=== PATIENT | male | born 1970 | race Two or more races ===

== ENCOUNTER 2017-04-19 09:48 | Inpatient (IN) | payer OTHER, MEDICARE ==
[~2017-04-19] VITALS: Ht 170.2 cm; Wt 106.1 kg
[2017-04-19 09:50] VITALS: BP 123/74; PULSE 116; RESP 18; TEMP 98.5; O2SAT 98
[2017-04-19] MEDS ORDERED: DILA2TAB2 PO (10:09)
[2017-04-19] MEDS ORDERED: LOVA40TA PO (10:09)
[2017-04-19] MEDS ORDERED: INSU1INJ5 SQ (10:09)
[2017-04-19] MEDS ORDERED: GLIP10TA6 PO (10:09)
[2017-04-19] MEDS ORDERED: HYDROmorphone HCL PF 1 MG/ML VIAL IVS ONE (10:30)
[2017-04-19] MEDS ORDERED: SODIUM CHLORIDE 0.9% FLUSH 10 ML FLUSH IV FLUSH PRN ×2 (10:30→17:15)
[2017-04-19] MEDS ORDERED: ONDANSETRON HCL 4 MG/2 ML VIAL IVP ONE (10:30)
[2017-04-19 10:50] LABS: AUTOMATED NEUTROPHIL # 9.1 TH/MM3 (1.8-7.7); BASOPHIL # 0.1 TH/MM3 (0-0.2); BASOPHIL % 0.5 % (0.0-2.0); EOSINOPHIL # 0.1 TH/MM3 (0-0.4); HEMATOCRIT 28.6 % (39.0-51.0); HEMO FLAGS DIFF FINAL; LYMPH % 6.5 % (9.0-44.0); LYMPHOCYTE # 0.7 TH/MM3 (1.0-4.8); MEAN CELL VOLUME 99.4 FL (80.0-100.0); MEAN CORPUSCULAR HEMOGLOBIN 32.3 PG (27.0-34.0); MEAN CORPUSCULAR HGB CONC 32.5 % (32.0-36.0); MONO % 8.6 % (0.0-8.0); NEUT % 83.4 % (16.0-70.0); PLATELET COUNT 269 TH/MM3 (150-450); RED BLOOD COUNT 2.88 MIL/MM3 (4.50-5.90); RED CELL DISTRIBUTION WIDTH 21.9 % (11.6-17.2); WHITE BLOOD COUNT 10.9 TH/MM3 (4.0-11.0)
[2017-04-19 11:09] LABS: APTT (PATIENT) 36.7 SEC (24.3-30.1); INTERNATIONAL NORMALIZED RATIO 1.6 RATIO
[2017-04-19 11:16] LABS: ALKALINE PHOSPHATASE 492 U/L (45-117); ALT (GPT) 95 U/L (12-78); ANION GAP 15 MEQ/L (5-15); AST (GOT) 820 U/L (15-37); BICARBONATE 20.8 MEQ/L (21.0-32.0); BLOOD UREA NITROGEN 21 MG/DL (7-18); CHLORIDE 98 MEQ/L (98-107); GLOMERULAR FILTRATION RATE 52 ML/MIN (>89); POTASSIUM 4.2 MEQ/L (3.5-5.1); SODIUM (NA) 134 MEQ/L (136-145); TOTAL BILIRUBIN ADULT 13.5 MG/DL (0.2-1.0)
[2017-04-19] MEDS ORDERED: SODIUM CHLOR 0.9% 1000 ML INJ 1,000 ML IV ONE (11:45)
--- NOTE | 2017-04-19 11:51 | PD ---
HPI Chief Complaint: Pain: Acute or Chronic Time Seen by Provider: 10:05 Travel History International Travel<30 days: No Contact w/Intl Traveler<30days: No Traveled to known affect area: No History of Present Illness HPI Patient is a 47 year old male who comes in complaining of pain. He has metastatic colon cancer, not on chemo, and is having pain to his abdomen and back. He was seen at [facility] where he had a CTA done, which showed no evidence of PE, however, there are lung nodules as well as several masses within the liver. There was also no evidence of SBO. He denies fever or chills. He says everything has been going on for the past month. He denies any difficulty breathing. PFSH Past Medical History Cancer: Yes (COLON, LIVER) High Cholesterol: Yes Chemotherapy: Yes Diabetes: Yes Patient Takes Glucophage: Yes Diminished Hearing: No Tetanus Vaccination: > 5 Years Influenza Vaccination: No Past Surgical History Other Surgery: Yes (POWER PORT R CHEST ) Social History Alcohol Use: No Tobacco Use: No Substance Use: No Allergies-Medications (Allergen,Severity, Reaction): Coded Allergies: No Known Allergies (Unverified , 04/19/17) Reported Meds & Prescriptions Reported Meds & Active Scripts Active Reported Glipizide 10 Mg Tab 10 Mg PO BIDAC Take 30 minutes before a meal Lovastatin 40 Mg Tab 40 Mg PO DAILY Dilaudid (Hydromorphone HCl) 2 Mg Tab 2 Mg PO Q6H PRN Levemir Flextouch Pen Inj (Insulin Detemir) 300 unit/3 ML Pen 1 Units SQ Review of Systems Except as stated in HPI: all other systems reviewed are Neg General / Constitutional: No: Fever, Chills Eyes: No: Blurred Vision HENT: No: Headaches, Lightheadedness Cardiovascular: No: Chest Pain or Discomfort Respiratory: No: Shortness of Breath Gastrointestinal: Positive: Abdominal Pain Genitourinary: No: Dysuria Skin: Positive Change in Pigmentation, No Rash Neurologic: Positive: Weakness, No: Dizziness Physical Exam Narrative GENERAL: Awake and alert, in no acute distress. SKIN: Focused skin assessment warm/dry. Jaundice. HEAD: Atraumatic. Normocephalic. EYES: Pupils equal and round. scleral icterus. No injection or drainage. ENT: No nasal bleeding or discharge. Mucous membranes pink and moist. NECK: Trachea midline. No JVD. CARDIOVASCULAR: Regular rate and rhythm. No murmur appreciated. RESPIRATORY: No accessory muscle use. Clear to auscultation. Breath sounds equal bilaterally. GASTROINTESTINAL: Abdomen soft, non-tender, distended. MUSCULOSKELETAL: No obvious deformities. No clubbing. No cyanosis. NEUROLOGICAL: Awake and alert. No obvious cranial nerve deficits. Motor grossly within normal limits. Normal speech. PSYCHIATRIC: Appropriate mood and affect; insight and judgment normal. Data Data Last Documented VS Vital Signs Date Time Temp Pulse Resp B/P Pulse Ox O2 Delivery O2 Flow Rate FiO2 04/19/17 12:15 105 15 121/74 96 Room Air 04/19/17 09:50 98.5 Orders Complete Blood Count With Diff (04/19/17 10:17) Comprehensive Metabolic Panel (04/19/17 10:17) Lipase (04/19/17 10:17) Lactic Acid (04/19/17 10:17) Prothrombin Time / Inr (Pt) (04/19/17 10:17) Act Partial Throm Time (Ptt) (04/19/17 10:17) Urinalysis - C+S If Indicated (04/19/17 10:17) Ua Includes Microscopic (04/19/17 10:17) Ct Abd/Pel W Iv Contrast(Rout) (04/19/17 10:17) Iv Access Insert/Monitor (04/19/17 10:17) Ecg Monitoring (04/19/17 10:17) Oximetry (04/19/17 10:17) Ondansetron Inj (Zofran Inj) (04/19/17 10:30) Sodium Chloride 0.9% Flush (Ns Flush) (04/19/17 10:30) Hydromorphone Pf Inj (Dilaudid Pf Inj) (04/19/17 10:30) Ammonia (04/19/17 10:17) Sodium Chlor 0.9% 1000 Ml Inj (Ns 1000 M (04/19/17 11:45) Lactic Acid Sepsis Protocol (04/19/17 12:30) Iohexol 350 Inj (Omnipaque 350 Inj) (04/19/17 13:55) Admit Order (Ed Use Only) (04/19/17 ) Labs Laboratory Tests Test 04/19/17 04/19/17 10:26 12:35 White Blood Count 10.9 TH/MM3 Red Blood Count 2.88 MIL/MM3 Hemoglobin 9.3 GM/DL Hematocrit 28.6 % Mean Corpuscular Volume 99.4 FL Mean Corpuscular Hemoglobin 32.3 PG Mean Corpuscular Hemoglobin 32.5 % Concent Red Cell Distribution Width 21.9 % Platelet Count 269 TH/MM3 Mean Platelet Volume 7.3 FL Neutrophils (%) (Auto) 83.4 % Lymphocytes (%) (Auto) 6.5 % Monocytes (%) (Auto) 8.6 % Eosinophils (%) (Auto) 1.0 % Basophils (%) (Auto) 0.5 % Neutrophils # (Auto) 9.1 TH/MM3 Lymphocytes # (Auto) 0.7 TH/MM3 Monocytes # (Auto) 0.9 TH/MM3 Eosinophils # (Auto) 0.1 TH/MM3 Basophils # (Auto) 0.1 TH/MM3 CBC Comment DIFF FINAL Differential Comment Prothrombin Time 18.0 SEC Prothromb Time International 1.6 RATIO Ratio Activated Partial 36.7 SEC Thromboplast Time Sodium Level 134 MEQ/L Potassium Level 4.2 MEQ/L Chloride Level 98 MEQ/L Carbon Dioxide Level 20.8 MEQ/L Anion Gap 15 MEQ/L Blood Urea Nitrogen 21 MG/DL Creatinine 1.46 MG/DL Estimat Glomerular Filtration 52 ML/MIN Rate Random Glucose 131 MG/DL Lactic Acid Level 4.2 mmol/L 3.3 mmol/L Calcium Level 8.1 MG/DL Total Bilirubin 13.5 MG/DL Aspartate Amino Transf 820 U/L (AST/SGOT) Alanine Aminotransferase 95 U/L (ALT/SGPT) Alkaline Phosphatase 492 U/L Ammonia 29 MCMOL/L Total Protein 7.9 GM/DL Albumin 1.4 GM/DL Lipase 116 U/L [facility] Medical Decision Making Medical Screen Exam Complete: Yes Emergency Medical Condition: Yes Medical Record Reviewed: Yes Differential Diagnosis Metastatic cancer versus liver failure versus obstruction Narrative Course Patient is a 47-year-old male comes in complaining of pain. Exam shows jaundice , scleral icterus, ascites of the abdomen. IV established, labs sent. Patient has a lactic acid 4.2. He also signs of liver failure. Patient given IV fluids. Given Dilaudid for pain. CT of the abdomen and pelvis performed shows extensive tumor load as well as spread to the mesentery. Patient will be admitted for management of pain as well as elevated lactic acid. Diagnosis Primary Impression: Liver failure Qualified Code: K72.00 - Subacute liver failure without hepatic coma Additional Impression: Metastatic cancer Admitting Information Admitting Physician Requests: Admit Condition: Stable Cheryl Szymanski MD Apr 19, 2017 11:51
[2017-04-19 12:15] VITALS: BP 121/74; PULSE 105; RESP 15; O2SAT 96
--- NOTE | 2017-04-19 13:45 | RADRPT ---
EXAM DATE/TIME: 04/19/2017 12:54 [facility] COMPARISON: No previous studies available for comparison. INDICATIONS : Abdomen pain. IV CONTRAST: 100 cc Omnipaque 350 (iohexol) IV ORAL CONTRAST: No oral contrast ingested. RADIATION DOSE: 9.96 CTDIvol (mGy) MEDICAL HISTORY : Carcinoma, colon. Carcinoma; liver. SURGICAL HISTORY : None. ENCOUNTER: Initial ACUITY: 2 weeks PAIN SCALE: 5/10 LOCATION: Bilateral abdomen. TECHNIQUE: Volumetric scanning of the abdomen and pelvis was performed. Using automated exposure control and adjustment of the mA and/or kV according to patient size, radiation dose was kept as low as reasonably achievable to obtain optimal diagnostic quality images. DICOM format image data is av ailable electronically for review and comparison. FINDINGS: CT Abdomen: The liver is riddled with metastatic disease involving all segments the largest one measu res 17.6 cm in size. The spleen, pancreas, adrenals are unremarkable. There is no evidence for any hans wel obstruction. There are simple cysts in the kidneys the largest on the right measures 1.8 cm in s ize. Multiple nodules are present in both lung bases the largest measures 1 cm on the left characteri stic of metastatic disease. CT pelvis: There is a large mass in the cecum almost certainly malignant measures 5 cm in size with i nfiltration of the surrounding fat planes probably extension through the bowel wall involving the dennis rounding fat and possibly small lymph nodes at this site the largest measures 1.4 cm in size. There i s slight ascites possibility of peritoneal carcinomatosis is not completely excluded at this time.. CONCLUSION: 1. Malignant appearing cecal mass with metastatic disease to the liver and lungs. 2. The mass has eroded through the bowel wall with involvement of the surrounding mesentery and possi cory small metastatic lymph nodes locally at the site with slight ascites and early peritoneal carcino matosis is not excluded Elton Nunn MD on April 19, 2017 at 13:37 Board Certified Radiologist. This report was verified electronically.
[2017-04-19] MEDS ORDERED: IOHEXOL 350 MG/ML 10 ML VIAL (for RAD DIAG) IV ONE (13:55)
[2017-04-19 14:40] LABS: LACTIC ACID GHOST NOT REPORTABLE
[2017-04-19 15:59] VITALS: BP 117/68; PULSE 106; RESP 16; TEMP 98.5; O2SAT 97
--- NOTE | 2017-04-19 17:01 | HHI.HP ---
[facility] Service [facility] Primary Care Physician Moshe Smith, III Admission Diagnosis liver failure, metastatic cancer Diagnoses: Chief Complaint: back pain/abdominal pain Travel History International Travel<30 Days: No Contact w/Intl Traveler <30 Da: No Traveled to Known Affected Are: No History of Present Illness This is a 47-year-old male with significant past medical history of metastatic colon cancer diagnosed in 2015 at [facility] for which the patient underwent chemotherapy which he states he was forced to stop due to problems with insurance. The patient states that initially he had a good response to the chemotherapy however the cancer came back and then the patient had stopped treatment due to insurance issues. The patient complains of increased weakness , yellow skin, shortness of breath especially with exertion, lack of appetite, increased abdominal pain and back pain as well as nausea. Denies fevers or chills, denies chest pain, denies diarrhea or dysuria. The patient has being previously followed by Dr. Jo from oncology. Review of Systems As per history of present illness, other systems reviewed by me and negative Past Family Social History Past Medical History Metastatic colon cancer Diabetes mellitus Past Surgical History Right-sided chest port placement. Reported Medications Glipizide 10 Mg Tab 10 Mg PO BIDAC Take 30 minutes before a meal Lovastatin 40 Mg Tab 40 Mg PO DAILY Dilaudid (Hydromorphone HCl) 2 Mg Tab 2 Mg PO Q6H PRN Levemir Flextouch Pen Inj (Insulin Detemir) 300 unit/3 ML Pen 1 Units SQ Allergies: Coded Allergies: No Known Allergies (Unverified , 04/19/17) Active Ordered Medications Current Medications Medications (Trade) Dose Ordered Sig/Gary Route Start Time Stop Time Status Last Admin (NS Flush) 2 ml UNSCH PRN IV FLUSH 04/19/17 17:15 (NS Flush) 2 ml BID IV FLUSH 04/19/17 21:00 (Tylenol) 650 mg Q4H PRN PO 04/19/17 17:15 (Zofran Inj) 4 mg Q6H PRN IVP 04/19/17 17:15 04/19/17 18:05 (Lovenox Inj) 40 mg Q24H SQ 04/19/17 18:00 04/19/17 18:05 (Aniya-Colace) 1 tab BID PO 04/19/17 21:00 (Milk Of Magnreba Liq) 30 ml Q12H PRN PO 04/19/17 17:15 (Senokot) 17.2 mg Q12H PRN PO 04/19/17 17:15 (Dulcolax Supp) 10 mg DAILY PRN RECTAL 04/19/17 17:15 Lactulose 30 ml 30 ml DAILY PRN PO 04/19/17 17:15 (NS 1000 ml Inj) 1,000 ml @ 84 mls/hr [id number] IV 04/19/17 17:15 04/19/17 17:27 (Morphine Inj) 2 mg Q3H PRN IV PUSH 04/19/17 18:00 (Morphine Inj) 4 mg Q3H PRN IV PUSH 04/19/17 18:00 04/19/17 18:05 Family History Patient states that her grandmother had stomach cancer. Social History She denies smoking, denies drinking alcohol or using illicit drugs. Physical Exam Vital Signs Vital Signs Date Time Temp Pulse Resp B/P Pulse Ox O2 Delivery O2 Flow Rate FiO2 04/19/17 15:59 98.5 106 16 117/68 97 Room Air 04/19/17 12:15 105 15 121/74 96 Room Air 04/19/17 11:21 20 04/19/17 09:50 98.5 116 18 123/74 98 Physical Exam GENERAL: This is a mal-nourished, well-developed patient, in no apparent distress. SKIN: No rashes, ecchymoses or lesions. Cool and dry. (+) Jaundice HEAD: Atraumatic. Normocephalic. No temporal or scalp tenderness. EYES: Pupils equal round and reactive. Extraocular motions intact. No injection or drainage. (+) icteric sclerae ENT: Nose without bleeding, purulent drainage or septal hematoma. Throat without erythema, tonsillar hypertrophy or exudate. Uvula midline. Airway patent. NECK: Trachea midline. No JVD or lymphadenopathy. Supple, nontender, no meningeal signs. CARDIOVASCULAR: Regular rate and rhythm without murmurs, gallops, or rubs. RESPIRATORY: Clear to auscultation. Breath sounds equal bilaterally. No wheezes , rales, or rhonchi. GASTROINTESTINAL: Abdomen soft, effusion tender to palpation, tended. No hepato- splenomegaly, or palpable masses. No guarding. (+) ascites MUSCULOSKELETAL: Extremities without clubbing, cyanosis, there is edema in the right lower extremity. No joint tenderness, effusion, or edema noted. No calf tenderness. Negative Homans sign bilaterally. NEUROLOGICAL: Awake and alert. Cranial nerves II through XII intact. Motor and sensory grossly within normal limits. Five out of 5 muscle strength in all muscle groups. Normal speech. Laboratory Laboratory Tests Test 04/19/17 04/19/17 10:26 12:35 White Blood Count 10.9 Red Blood Count 2.88 Hemoglobin 9.3 Hematocrit 28.6 Mean Corpuscular Volume 99.4 Mean Corpuscular Hemoglobin 32.3 Mean Corpuscular Hemoglobin 32.5 Concent Red Cell Distribution Width 21.9 Platelet Count 269 Mean Platelet Volume 7.3 Neutrophils (%) (Auto) 83.4 Lymphocytes (%) (Auto) 6.5 Monocytes (%) (Auto) 8.6 Eosinophils (%) (Auto) 1.0 Basophils (%) (Auto) 0.5 Neutrophils # (Auto) 9.1 Lymphocytes # (Auto) 0.7 Monocytes # (Auto) 0.9 Eosinophils # (Auto) 0.1 Basophils # (Auto) 0.1 CBC Comment DIFF FINAL Differential Comment Prothrombin Time 18.0 Prothromb Time International 1.6 Ratio Activated Partial 36.7 Thromboplast Time Sodium Level 134 Potassium Level 4.2 Chloride Level 98 Carbon Dioxide Level 20.8 Anion Gap 15 Blood Urea Nitrogen 21 Creatinine 1.46 Estimat Glomerular Filtration 52 Rate Random Glucose 131 Lactic Acid Level 4.2 3.3 Calcium Level 8.1 Total Bilirubin 13.5 Aspartate Amino Transf 820 (AST/SGOT) Alanine Aminotransferase 95 (ALT/SGPT) Alkaline Phosphatase 492 Ammonia 29 Total Protein 7.9 Albumin 1.4 Lipase 116 Result Diagram: 04/19/17 1026 04/19/17 1026 Imaging Last Impressions Lower Extremity Ultrasound 04/19/17 1703 Signed Impressions: Service Date/Time: Wednesday, April 19, 2017 18:50 - CONCLUSION: No DVT right leg. Sea Solano MD Abdomen/Pelvis CT 04/19/17 1017 Signed Impressions: Service Date/Time: Wednesday, April 19, 2017 12:54 - CONCLUSION: 1. Malignant appearing cecal mass with metastatic disease to the liver and lungs. 2. The mass has eroded through the bowel wall with involvement of the surrounding mesentery and possibly small metastatic lymph nodes locally at the site with slight ascites and early peritoneal carcinomatosis is not excluded Elton Nunn MD Assessment and Plan Problem List: (1) Metastatic colon cancer to liver ICD Code: C18.9 Status: Acute Plan: With the patient on outpatient observation Provide pain control with IV morphine Consult medical oncology - Dr Horn (2) Transaminitis ICD Code: R74.0 Status: Acute Plan: Transaminitis with elevated alkaline phosphatase and coagulopathy likely secondary to liver failure due to metastatic liver disease. Continue to monitor liver function tests. Check ammonia level (3) Elevated alkaline phosphatase level ICD Code: R74.8 Status: Acute Plan: As above (4) NICOLÁS (acute kidney injury) ICD Code: N17.9 Status: Acute Plan: Suspect secondary to prerenal azotemia map patient also with decreased oral intake. Possibly decreased effective intravascular volume. Will give IV Albumin and gentle IV fluids Continue to monitor BUN/creatinine and creatinine, strict I's and O's, avoid nephrotoxins. (5) Hyponatremia ICD Code: E87.1 Status: Acute Plan: monitor BMP. Will give normal saline. (6) Diabetes ICD Code: E11.9 Status: Chronic Plan: Blood sugar seems to be stable. Hold glipizide. Continue SSI with insulin NovoLog. (7) Anemia ICD Code: D64.9 Status: Acute Plan: Normal MCV anemia. Likely secondary to iron deficiency anemia due to colon cancer. Check iron studies, ferritin and monitor hemoglobin. (8) Severe protein-calorie malnutrition ICD Code: E43 Status: Acute Plan: We'll consult dietitian, I will also start the patient on Megace. (9) Coagulopathy ICD Code: D68.9 Status: Acute Plan: Likely secondary to liver failure secondary to liver metastasis. Continue to monitor PT, PTT, will give vitamin K. (10) Edema of right lower extremity ICD Code: R60.0 Status: Acute Plan: Penis Doppler ruled out DVT. (11) Elevated lactic acid level ICD Code: R79.89 Status: Acute Plan: Likely elevated secondary to dehydration and cancer. Continue gentle IV fluids. (12) Abdominal pain ICD Code: R10.9 Status: Acute Plan: Likely secondary to metastatic colon cancer. However cannot rule out SBP given that there is increased lactic acid and pain. Will start the patient IV Rocephin. Will provide pain control with IV morphine. Assessment and Plan GI prophylaxis: Place on PPI. DVT reflexes: SCDs, Lovenox subcutaneously. Discussed Condition With Patient, ED physician. Problem Qualifiers (1) Diabetes: Qualified Code: E11.9 - Type 2 diabetes mellitus without complication, with long-term current use of insulin (2) Anemia: Qualified Code: D64.9 - Anemia, unspecified type (3) Abdominal pain: Qualified Code: R10.84 - Generalized abdominal pain Audi Negrete MD Apr 19, 2017 17:01
[2017-04-19] MEDS ORDERED: ACETAMINOPHEN 325 MG TAB PO PRN (17:15)
[2017-04-19] MEDS ORDERED: LACTULOSE SYRUP 20 GM/30 ML CUP PO PRN (17:15)
[2017-04-19] MEDS ORDERED: ONDANSETRON HCL 4 MG/2 ML VIAL IVP PRN (17:15)
[2017-04-19] MEDS ORDERED: MAGNESIUM HYDROXIDE SUSP 30 ML CUP PO PRN (17:15)
[2017-04-19] MEDS ORDERED: SENNOSIDES 8.6 MG TAB PO PRN (17:15)
[2017-04-19] MEDS ORDERED: BISACODYL 10 MG SUPP RECTAL PRN (17:15)
[2017-04-19] MEDS ORDERED: SODIUM CHLOR 0.9% 1000 ML INJ 1,000 ML IV SCH ×2 (17:15→20:00)
[2017-04-19 17:44] VITALS: BP 130/71; PULSE 110; RESP 16; O2SAT 97
[2017-04-19] MEDS ORDERED: MORPHINE SULFATE 4 MG/ML INJ IV PUSH PRN (18:00)
[2017-04-19] MEDS: ENOXAPARIN SODIUM 40 MG/0.4 ML SYRINGE SQ SCH (18:05)
[2017-04-19] MEDS: MORPHINE SULFATE 4 MG/ML INJ IV PUSH PRN ×2 (18:05→23:18)
[2017-04-19 18:37] VITALS: BP 121/71; PULSE 110; RESP 20; TEMP 96.1; O2SAT 97
--- NOTE | 2017-04-19 19:10 | RADRPT ---
EXAM DATE/TIME: 04/19/2017 18:50 [facility] COMPARISON: No previous studies available for comparison. INDICATIONS : Right leg swelling. MEDICAL HISTORY : Hypercholesterolemia. Colon cancer with mets to lungs and liver. Chemotherapy. Diabetes. SURGICAL HISTORY : Right chest port. ENCOUNTER: Initial ACUITY: 1 day PAIN SCORE: 6/10 LOCATION: Right leg. TECHNIQUE: Venous ultrasound of the leg was performed from the inguinal ligament to the proximal calf. Real-giovani e, color Doppler and spectral tracing, compression and augmentation techniques were used. FINDINGS: There is normal compressibility of the deep venous system from the inguinal region to the proximal ca lf. No echogenic clot is seen in the lumen of the common femoral, femoral, popliteal, and posterior tibial veins. There is a normal response of the venous system to proximal and distal augmentation an d respiration. CONCLUSION: No DVT right leg. Sea Solano MD on April 19, 2017 at 19:08 Board Certified Radiologist. This report was verified electronically.
[2017-04-19 20:00] VITALS: BP 99/69; PULSE 112; RESP 17; TEMP 96.3; O2SAT 97
[2017-04-19] MEDS: SODIUM CHLORIDE 0.9% FLUSH 10 ML FLUSH IV FLUSH SCH (20:29)
[2017-04-19] MEDS ORDERED: PHYTONADIONE INJ 10 MG in SODIUM CHLORIDE 0.9% INJ 50 ML IV ONE (21:00)
[2017-04-19] MEDS: DOCUSATE SODIUM 50 MG/SENNA 8.6 MG TAB PO SCH (21:08)
[2017-04-19] MEDS: cefTRIAXone INJ 2,000 MG in SODIUM CHLORIDE 0.9% INJ 100 ML IV SCH (21:58)
[2017-04-19] MEDS: ALBUMIN HUMAN 25% 25 GM/100 ML BAGP IV SCH (22:01)
[2017-04-19 23:51] LABS: BACTERIA, URINE RARE /hpf; BLOOD, URINE SMALL (NEG); COMMENT (UR) CULT NOT INDICATED; CULTURE IF INDICATED CULT NOT INDICATED; GLUCOSE,URINE TRACE mg/dL (NEG); GRANULAR CAST, URINE 8 /lpf; HYALINE CAST, URINE 1 /lpf (RARE); KETONE, URINE NEG (NEG); MUCUS URINE FEW /lpf (OCC); NITRITE,URINE NEG (NEG); PH, URINE 5.5 (5.0-8.5); SQUAMOUS EPITHELIAL CELL URINE <1 /hpf (0-5); URINE COLOR DARK-YELLOW (YELLW/STRAW)
[2017-04-20] VITALS: BP 116/73; PULSE 118; RESP 19; TEMP 97.7; O2SAT 97
[2017-04-20 04:00] VITALS: BP 126/71; PULSE 114; RESP 16; TEMP 96.3; O2SAT 96
[2017-04-20] MEDS: MORPHINE SULFATE 4 MG/ML INJ IV PUSH PRN (04:18)
[2017-04-20 04:28] LABS: AUTOMATED NEUTROPHIL # 7.7 TH/MM3 (1.8-7.7); BASOPHIL # 0.1 TH/MM3 (0-0.2); BASOPHIL % 0.9 % (0.0-2.0); EOSINOPHIL # 0.1 TH/MM3 (0-0.4); HEMATOCRIT 26.3 % (39.0-51.0); LYMPH % 9.7 % (9.0-44.0); LYMPHOCYTE # 0.9 TH/MM3 (1.0-4.8); MEAN CELL VOLUME 98.1 FL (80.0-100.0); MEAN CORPUSCULAR HGB CONC 32.6 % (32.0-36.0); NEUT % 79.4 % (16.0-70.0); PLATELET COUNT 276 TH/MM3 (150-450); RED BLOOD COUNT 2.68 MIL/MM3 (4.50-5.90); RED CELL DISTRIBUTION WIDTH 21.3 % (11.6-17.2); WHITE BLOOD COUNT 9.7 TH/MM3 (4.0-11.0)
[2017-04-20 04:35] LABS: HEMO FLAGS AUTO DIFF
[2017-04-20 05:07] LABS: ALKALINE PHOSPHATASE 454 U/L (45-117); ALT (GPT) 79 U/L (12-78); ANION GAP 11 MEQ/L (5-15); AST (GOT) 633 U/L (15-37); BICARBONATE 20.8 MEQ/L (21.0-32.0); BLOOD UREA NITROGEN 32 MG/DL (7-18); CHLORIDE 99 MEQ/L (98-107); FERRITIN 933 NG/ML (26-388); GLOMERULAR FILTRATION RATE 40 ML/MIN (>89); POTASSIUM 4.4 MEQ/L (3.5-5.1); SODIUM (NA) 131 MEQ/L (136-145); TOTAL BILIRUBIN ADULT 13.1 MG/DL (0.2-1.0); TRANSFERRIN IRON PROFILE 116 MG/DL (200-360)
[2017-04-20 05:14] LABS: CALCIUM-PROTEIN CORRECTED 7.4 MG/DL (8.5-10.1)
[2017-04-20 06:20] LABS: LACTIC ACID GHOST NOT REPORTABLE
[2017-04-20 07:53] LABS: BANDS 16 % (0-6); BASOPHILS 1 % (0-2); EOSINOPHILS 1 % (0-4); NEUTROPHIL # MANUAL DIFF 9.1 TH/MM3 (1.8-7.7); POLYS (SEG NEUTROPHILS) 78 % (16-70); WBC DIFF SAMPLE 100
[2017-04-20 07:54] LABS: PLATELET ESTIMATE SMEAR NORMAL (NORMAL); PLATELET MORPHOLOGY NORMAL (NORMAL); SCAN/DIFF FINAL DIFF MANUAL
--- NOTE | 2017-04-20 07:54 | MB ---
cc: HARINI STRATTON M.D. DATE OF CONSULTATION 04/19/2017 REASON FOR CONSULTATION Consult requested by hospitalist for evaluation of metastatic colon cancer. HISTORY OF PRESENT ILLNESS This is a 47-year-old male. He was diagnosed with colon cancer with extensive liver metastasis in July of 2015 when he presented with abdominal pain at [facility] at [facility]. The CAT scan showed multiple liver metastases, thickening of the ascending colon. He had a colonoscopy which showed near obstructive mass in the descending colon. He was treated with Xelox from August 2015 through January of 2016. The Xelox was stopped due to peripheral neuropathy. At that time he had a CAT scan which showed no evidence of disease and his CEA was normal. He was kept on observation. The patient subsequently moved from [place] to [place] in April of last year. He was referred to me in July of last year. I repeated the CAT scan of the abdomen and pelvis which showed recurrent liver metastasis and his CEA has gone up to 120. I started him on Avastin and FOLFOX chemotherapy. The patient was having a good response. His CEA was steadily becoming down and his cancer was responding to the chemotherapy. I last saw him in November. After that the patient has cancelled several appointments. My nurse had contacted him but he declined to make further appointments. The patient states that he stopped the chemotherapy due to financial reasons. He was told that he needed to pay so much money and he did not have that. Our financial resources person, Florence Haji, has obtaining a jeison for him so that he can continue with the chemotherapy. However, the patient has a language barrier. He has some misunderstanding and he decided not to have any further chemotherapy. He was doing yariel treatment. 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 The patient was doing fine up until a month ago when he started having abdominal pain which gradually progressed and was having back pain as well. His appetite was poor. He was losing weight. He subsequently developed shortness of breath and he went to [facility] a week ago. He had a CAT scan which showed no pulmonary embolism but he was told that he has tumor in his lungs and the liver. He was given some pain medication and was discharged to home to be followed with an oncologist. The patient made an appointment with me see on April 27, a week from next Thursday. REVIEW OF SYSTEMS The patient now came to the emergency room at [place] complaining of severe abdominal pain and severe jaundice. He is complaining of anorexia, weight loss, weakness, fatigue. He is complaining of abdominal pain and back pain. He ran out of the pain medication which was given to him from [facility] a week ago. The rest of the review of systems is negative. PAST MEDICAL HISTORY 1. Morbid obesity. 2. Depression. 3. Diabetes mellitus. 4. Colon cancer with liver metastasis. PAST SURGICAL HISTORY 1. Rismve-L-Luvk placement. 2. Colonoscopy and colon biopsy. ALLERGIES None. MEDICATIONS Please see EMR. FAMILY HISTORY Noncontributory. SOCIAL HISTORY The patient does not smoke cigarettes, does not drink alcohol. 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 PHYSICAL EXAMINATION GENERAL: He is a well-developed, morbidly obese male. VITAL SIGNS: Temperature 96.1, heart rate is 110, blood pressure 121/71, O2 saturation 97%. HEENT: PERRLA. Sclerae is deeply icteric. NECK: No lymphadenopathy. LUNGS: Clear. No wheezing, rhonchi or rales. HEART: Tachycardic with no murmur. ABDOMEN: Distended, unable to feel for liver and spleen. EXTREMITIES: No pedal edema. NEUROLOGY: Awake, alert, oriented x 3. SKIN: No significant lesions noted. ASSESSMENT 1. History of colon cancer with liver metastasis diagnosed two years ago in 2014. The patient initially was treated with Xelox, then Avastin and FOLFOX chemotherapy with an excellent response. However, he has elected to stop further chemotherapy in November due to financial reasons. 2. The patient now has extensive liver metastasis and the cancer has now progressed into both lungs. 3. Severe jaundice due to extensive liver metastasis. PLAN I have reviewed his available records and I had an extensive discussion with the patient's and multiple family members including her friend who was able to act as an american sign language interpreter. We discussed that his blood test shows a bilirubin of 13.5, AST is 820, ALT is 95, alkaline phosphatase 492. Albumin is 1.4. He has severely elevated liver enzymes due to extensive liver metastasis. The patient does not have any dilated bile duct so the patient does not have any obstruction of the bile ducts. This is all hepatocellular disease from extensive colon metastasis. I have strongly recommended Hospice for best supportive care. I do not think the patient would be able to tolerate further chemotherapy due to the extensive metastasis as well as liver failure. I recommended Hospice for best supportive care. However, the patient and his family adamantly declined. The patient wanted to try chemotherapy desperately. He stated that two years ago when he was diagnosed with colon cancer Stage IV he was told that he had 3-6 months to live. With the initial chemotherapy the tumor had resolved and he went into remission. But then his cancer did come back and he was responding to the chemotherapy, Avastin and FOLFOX, quite well. Then, he had some financial issues and was unable to continue with the chemotherapy. He had cancelled his appointments and last saw him was in November of 2016. The patient insists on trying chemotherapy. We discussed that at first we need to control his pain with the narcotics. Once that happens, then he could be discharged to home and he can come to our office for the chemotherapy. He has already made the appointment for April 27. Since the patient is insisting and he is in denial, I will give him a chance to try chemotherapy one more time. Hopefully he will respond to the chemotherapy again. His family had asked several questions and these were answered to their satisfaction. Thank you for asking my opinion. MD HERNANDO Montilla/CAMILLE /12:32 AM /7:32 AM
[2017-04-20 08:00] VITALS: BP 117/70; PULSE 114; RESP 18; TEMP 98.3; O2SAT 95
[2017-04-20] MEDS: PHYTONADIONE 10 MG/ML VIAL SQ SCH (09:23)
[2017-04-20] MEDS: DOCUSATE SODIUM 50 MG/SENNA 8.6 MG TAB PO SCH ×2 (09:24→22:16)
[2017-04-20] MEDS: ALBUMIN HUMAN 25% 25 GM/100 ML BAGP IV SCH ×2 (09:25→22:17)
[2017-04-20] MEDS: SODIUM CHLORIDE 0.9% FLUSH 10 ML FLUSH IV FLUSH SCH ×2 (09:36→21:00)
[2017-04-20 12:00] VITALS: BP 113/73; PULSE 94; RESP 16; TEMP 97.7; O2SAT 96
[2017-04-20] MEDS ORDERED: CALCIUM CHLORIDE INJ 2 GM in SODIUM CHLORIDE 0.9% INJ 100 ML IV ONE (13:00)
[2017-04-20] MEDS ORDERED: MORPHINE SULFATE 30 MG TAB PO PRN (13:00)
[2017-04-20] MEDS ORDERED: MORPHINE SULFATE 15 MG TAB PO PRN (13:00)
[2017-04-20] MEDS ORDERED: FUROSEMIDE 40 MG/4 ML VIAL IV PUSH SCH (13:00)
--- NOTE | 2017-04-20 13:03 | HHI.PR ---
Subjective Remarks Patient denies any abdominal pain or back pain Denies fevers or chills. States appetite is improving. Creatinine seems to be worsening States he has a good urine output Sodium seems to be trending down. Objective Vitals Vital Signs Date Time Temp Pulse Resp B/P Pulse Ox O2 Delivery O2 Flow Rate FiO2 04/20/17 12:00 97.7 94 16 113/73 96 04/20/17 08:00 98.3 114 18 117/70 95 04/20/17 04:00 96.3 114 16 126/71 96 04/20/17 00:00 97.7 118 19 116/73 97 04/19/17 20:00 96.3 112 17 99/69 97 04/19/17 18:37 96.1 110 20 121/71 97 04/19/17 17:44 110 16 130/71 97 Room Air 04/19/17 15:59 98.5 106 16 117/68 97 Room Air I/O 04/19/17 04/19/17 04/19/17 04/20/17 04/20/17 04/20/17 07:00 15:00 23:00 07:00 15:00 23:00 Intake Total 200 ml 630 ml Output Total 200 ml 0 ml Balance 0 ml 630 ml Intake Oral 200 ml IV Total 630 ml Output Urine Total 200 ml 0 ml # Bowel Movements 1 0 Result Diagram: 04/20/17 0415 04/20/17 0415 Imaging Last Impressions Lower Extremity Ultrasound 04/19/17 1703 Signed Impressions: Service Date/Time: Wednesday, April 19, 2017 18:50 - CONCLUSION: No DVT right leg. Sea Solano MD Abdomen/Pelvis CT 04/19/17 1017 Signed Impressions: Service Date/Time: Wednesday, April 19, 2017 12:54 - CONCLUSION: 1. Malignant appearing cecal mass with metastatic disease to the liver and lungs. 2. The mass has eroded through the bowel wall with involvement of the surrounding mesentery and possibly small metastatic lymph nodes locally at the site with slight ascites and early peritoneal carcinomatosis is not excluded Elton Nunn MD Objective Remarks GENERAL: This is a mal-nourished, well-developed patient, in no apparent distress. SKIN: No rashes, ecchymoses or lesions. Cool and dry. (+) Jaundice HEAD: Atraumatic. Normocephalic. No temporal or scalp tenderness. EYES: Pupils equal round and reactive. Extraocular motions intact. No injection or drainage. (+) icteric sclerae ENT: Nose without bleeding, purulent drainage or septal hematoma. Throat without erythema, tonsillar hypertrophy or exudate. Uvula midline. Airway patent. NECK: Trachea midline. No JVD or lymphadenopathy. Supple, nontender, no meningeal signs. CARDIOVASCULAR: Regular rate and rhythm without murmurs, gallops, or rubs. RESPIRATORY: Clear to auscultation. Breath sounds equal bilaterally. No wheezes , rales, or rhonchi. GASTROINTESTINAL: Abdomen soft, effusion tender to palpation, tended. No hepato- splenomegaly, or palpable masses. No guarding. (+) ascites MUSCULOSKELETAL: Extremities without clubbing, cyanosis, there is edema in the right lower extremity. No joint tenderness, effusion, or edema noted. No calf tenderness. Negative Homans sign bilaterally. NEUROLOGICAL: Awake and alert. Cranial nerves II through XII intact. Motor and sensory grossly within normal limits. Five out of 5 muscle strength in all muscle groups. Normal speech. Procedures none Medications and IVs Current Medications Medications (Trade) Dose Ordered Sig/Gary Route Start Time Stop Time Status Last Admin (NS Flush) 2 ml UNSCH PRN IV FLUSH 04/19/17 17:15 (NS Flush) 2 ml BID IV FLUSH 04/19/17 21:00 04/20/17 09:36 (Tylenol) 650 mg Q4H PRN PO 04/19/17 17:15 (Zofran Inj) 4 mg Q6H PRN IVP 04/19/17 17:15 04/19/17 18:05 (Lovenox Inj) 40 mg Q24H SQ 04/19/17 18:00 04/19/17 18:05 (Aniya-Colace) 1 tab BID PO 04/19/17 21:00 04/20/17 09:24 (Milk Of Magnesia Liq) 30 ml Q12H PRN PO 04/19/17 17:15 (Senokot) 17.2 mg Q12H PRN PO 04/19/17 17:15 (Dulcolax Supp) 10 mg DAILY PRN RECTAL 04/19/17 17:15 (Lactulose Liq) 30 ml DAILY PRN PO 04/19/17 17:15 (Albumin 25% Inj) 25 gm Q12H IV 04/19/17 20:00 04/20/17 09:25 Phytonadione 10 mg 10 mg DAILY SQ 04/20/17 09:00 04/20/17 09:23 (Rocephin Inj/NS Inj) 100 ml @ 200 mls/hr Q24H IV 04/19/17 22:00 04/19/17 21:58 (Lasix Inj) 40 mg DAILY IV PUSH 04/20/17 13:00 (Msir) 15 mg Q3H PRN PO 04/20/17 13:00 Morphine Sulfate 30 mg 30 mg Q4H PRN PO 04/20/17 13:00 (NS 1000 ml Inj) 1,000 ml @ 125 mls/hr Q8H IV 04/20/17 13:15 Urinary Catheter: No Vascular Central Line Catheter: No A/P Problem List: (1) Metastatic colon cancer to liver ICD Code: C18.9 Status: Acute Plan: With the patient on outpatient observation Provide pain control with IV morphine Dr Horn has been consulted and he recommended hospice care given that metastatic disease is pretty advanced given her failure. However upon insistence from family and patient, chemotherapy will be tried again as an outpatient. (2) Transaminitis ICD Code: R74.0 Status: Acute Plan: Transaminitis with elevated alkaline phosphatase and coagulopathy likely secondary to liver failure due to metastatic liver disease. Examinations are slightly improved with AST down from 820 - 633, and AST down from 95-79. Alkaline phosphatase is also slightly improved from 492-454 Continue to monitor liver function tests. ammonia level is normal (3) Elevated alkaline phosphatase level ICD Code: R74.8 Status: Acute Plan: As above (4) NICOLÁS (acute kidney injury) ICD Code: N17.9 Status: Acute Plan: Suspect secondary to prerenal azotemia map patient also with decreased oral intake. Possibly decreased effective intravascular volume. Patient started an IV albumin and gentle IV fluids Continue to monitor BUN/creatinine and creatinine, strict I's and O's, avoid nephrotoxins. Creatinine is trending up and acute kidney injury is worsening. I will increase the rate of normal saline to 125 mL per hour and consult nephrology. (5) Hyponatremia ICD Code: E87.1 Status: Acute Plan: Hyponatremia seems to be slightly worse. We'll continue to monitor BMP. We'll check urine and serum osmolality. (6) Diabetes ICD Code: E11.9 Status: Chronic (7) Anemia ICD Code: D64.9 Status: Acute Plan: Normal MCV anemia. Studies consistent with anemia of chronic disease likely secondary to malignancy. Continue to monitor hemoglobin which has trended down likely after IV fluid administration. (8) Severe protein-calorie malnutrition ICD Code: E43 Status: Acute Plan: Dietitian consulted. I will start the patient on Megace for appetite stimulant. (9) Coagulopathy ICD Code: D68.9 Status: Acute Plan: Likely secondary to liver failure secondary to liver metastasis. Continue to monitor PT, PTT, continue vitamin K. (10) Edema of right lower extremity ICD Code: R60.0 Status: Acute Plan: Right lower extremity Doppler Doppler ruled out DVT. (11) Elevated lactic acid level ICD Code: R79.89 Status: Acute Plan: Likely elevated secondary to dehydration and cancer. Continue IV fluids. Continue to monitor lactic acid. (12) Abdominal pain ICD Code: R10.9 Status: Acute Plan: Likely secondary to metastatic colon cancer. However cannot rule out SBP given that there is increased lactic acid and pain. 04/20 Continue IV Rocephin, amount of ascites seen on CT abdomen seems to be not enough for abdominal paracentesis. Patient has bandemia of 16% today and still with tachycardia. (13) Jaundice ICD Code: R17 Status: Acute Plan: due to liver failure due to metastasis. Continue to monitor liver function tests. (14) SIRS (systemic inflammatory response syndrome) ICD Code: R65.10 Status: Acute Plan: Patient meets SIRS criteria - tachycardia more than 16% bands. Urinalysis negative, will check a chest x-ray and blood cultures Continue IV Rocephin. Assessment and Plan DVT prophylaxis: SCDs, Lovenox subcutaneously. Discharge Planning Continue to monitor in the medical floor. Discharge pending clinical improvement and improvement of renal function. Problem Qualifiers (1) Diabetes: Qualified Code: E11.9 - Type 2 diabetes mellitus without complication, with long-term current use of insulin (2) Anemia: Qualified Code: D64.9 - Anemia, unspecified type (3) Abdominal pain: Qualified Code: R10.84 - Generalized abdominal pain Audi Negrete MD Apr 20, 2017 13:03
[2017-04-20] MEDS ORDERED: MORPHINE SULFATE 15 MG CONTROLLED RELEASE TAB PO ONE (13:45)
--- NOTE | 2017-04-20 13:56 | PD.ONC.PN ---
Subjective Subjective Remarks Afebrile overnight. Patient resting in room in nad. Denies any pain at present. Objective Data Date Time Temp Pulse Resp B/P Pulse Ox O2 Delivery O2 Flow Rate FiO2 04/20/17 12:00 97.7 94 16 113/73 96 04/20/17 08:00 98.3 114 18 117/70 95 04/20/17 04:00 96.3 114 16 126/71 96 04/20/17 00:00 97.7 118 19 116/73 97 04/19/17 20:00 96.3 112 17 99/69 97 04/19/17 18:37 96.1 110 20 121/71 97 04/19/17 17:44 110 16 130/71 97 Room Air 04/19/17 15:59 98.5 106 16 117/68 97 Room Air Result Diagram: 04/20/17 0415 04/20/17 0415 Laboratory Results Laboratory Tests Test 04/19/17 04/19/17 04/20/17 04/20/17 19:40 23:15 04:10 04:15 Lactic Acid Level 4.1 mmol/L 3.1 mmol/L Urine Color DARK-YELLOW Urine Turbidity CLOUDY Urine pH 5.5 Urine Specific [place] 1.045 Urine Protein 30 mg/dL Urine Glucose (UA) TRACE mg/dL Urine Ketones NEG mg/dL Urine Occult Blood SMALL Urine Nitrite NEG Urine Bilirubin LARGE Urine Urobilinogen 2.0 MG/DL Urine Leukocyte Esterase NEG Urine RBC 5 /hpf Urine WBC 6 /hpf Urine Squamous Epithelial <1 /hpf Cells Urine Bacteria RARE /hpf Urine Hyaline Casts 1 /lpf Urine Granular Casts 8 /lpf Urine Mucus FEW /lpf Urine Yeast (Budding) OCC Microscopic Urinalysis Comment CULT NOT INDICATED White Blood Count 9.7 TH/MM3 Red Blood Count 2.68 MIL/MM3 Hemoglobin 8.6 GM/DL Hematocrit 26.3 % Mean Corpuscular Volume 98.1 FL Mean Corpuscular Hemoglobin 32.0 PG Mean Corpuscular Hemoglobin 32.6 % Concent Red Cell Distribution Width 21.3 % Platelet Count 276 TH/MM3 Mean Platelet Volume 6.8 FL Neutrophils (%) (Auto) 79.4 % Lymphocytes (%) (Auto) 9.7 % Monocytes (%) (Auto) 9.0 % Eosinophils (%) (Auto) 1.0 % Basophils (%) (Auto) 0.9 % Neutrophils # (Auto) 7.7 TH/MM3 Lymphocytes # (Auto) 0.9 TH/MM3 Monocytes # (Auto) 0.9 TH/MM3 Eosinophils # (Auto) 0.1 TH/MM3 Basophils # (Auto) 0.1 TH/MM3 CBC Comment AUTO DIFF Differential Total Cells 100 Counted Neutrophils % (Manual) 78 % Band Neutrophils % 16 % Lymphocytes % 1 % Monocytes % 3 % Eosinophils % 1 % Basophils % 1 % Neutrophils # (Manual) 9.1 TH/MM3 Differential Comment FINAL DIFF MANUAL Platelet Estimate NORMAL Platelet Morphology Comment NORMAL Sodium Level 131 MEQ/L Potassium Level 4.4 MEQ/L Chloride Level 99 MEQ/L Carbon Dioxide Level 20.8 MEQ/L Anion Gap 11 MEQ/L Blood Urea Nitrogen 32 MG/DL Creatinine 1.84 MG/DL Estimat Glomerular Filtration 40 ML/MIN Rate Random Glucose 136 MG/DL Calcium Level 7.4 MG/DL Protein Corrected Calcium 7.4 MG/DL Iron Level 36 MCG/DL Total Iron Binding Capacity 162 MCG/DL Percent Iron Saturation 22.2 % Ferritin 933 NG/ML Total Bilirubin 13.1 MG/DL Aspartate Amino Transf 633 U/L (AST/SGOT) Alanine Aminotransferase 79 U/L (ALT/SGPT) Alkaline Phosphatase 454 U/L Total Protein 7.3 GM/DL Albumin 1.6 GM/DL Test 04/20/17 09:19 Lactic Acid Level 4.2 mmol/L Imaging Studies Last 24 hours Impressions Lower Extremity Ultrasound 04/19/17 1703 Signed Impressions: Service Date/Time: Wednesday, April 19, 2017 18:50 - CONCLUSION: No DVT right leg. Sea Solano MD Administered Medications Medications (Trade) Dose Ordered Sig/Gary Route PRN Reason Start Time Stop Time Status Last Admin Dose Admin Sodium Chloride (NS Flush) 2 ml BID IV FLUSH 04/19/17 21:00 04/20/17 09:36 Ondansetron HCl (Zofran Inj) 4 mg Q6H PRN IVP NAUSEA OR VOMITING 04/19/17 17:15 04/19/17 18:05 Enoxaparin Sodium (Lovenox Inj) 40 mg Q24H SQ 04/19/17 18:00 04/19/17 18:05 Senna/Docusate Sodium (Aniya-Colace) 1 tab BID PO 04/19/17 21:00 04/20/17 09:24 Albumin Human (Albumin 25% Inj) 25 gm Q12H IV 04/19/17 20:00 04/20/17 09:25 Phytonadione 10 mg 10 mg DAILY SQ 04/20/17 09:00 04/20/17 09:23 Ceftriaxone Sodium/Sodium Chloride (Rocephin Inj/NS Inj) 100 ml @ 200 mls/hr Q24H IV 04/19/17 22:00 04/19/17 21:58 Objective Remarks GENERAL: Middle aged male upright in bed in nad. SKIN: Warm and dry. HEAD: Normocephalic. EYES: No injection or drainage. NECK: Supple, trachea midline. CARDIOVASCULAR: +S1/S2, tachy RESPIRATORY: Breath sounds equal bilaterally. No accessory muscle use. GASTROINTESTINAL: Abdomen distended with ascites. EXTREMITIES: No cyanosis NEUROLOGICAL: awake and alert, normal speech. Assessment/Plan Problem List: (1) Metastatic colon cancer to liver Status: Acute Plan: 04/20: patient not having any pain at present. discussed watching how he tolerates the MSIR today and if requires several doses, will start long-acting morphine tomorrow. -- History of colon cancer with liver metastasis diagnosed two years ago in 2014. --initially was treated with Xelox, then Avastin and FOLFOX chemotherapy with an excellent response. --elected to stop further chemotherapy in November due to financial reasons. --now has extensive liver metastasis and the cancer has now progressed into both lungs. -- have strongly recommended Hospice for best supportive care. I do not think the patient would be able to tolerate further chemotherapy due to the extensive metastasis as well as liver failure. --recommended Hospice for best supportive care. However, the patient and his family adamantly declined. (2) Jaundice Status: Acute Plan: --has severe jaundice due to extensive liver metastasis. --patient does not have any dilated bile duct so the patient does not have any obstruction of the bile ducts. This is all hepatocellular disease from extensive colon metastasis. Assessment 47y/o male with metastatic colon cancer. h/o Morbid obesity. Depression. Diabetes mellitus. Colon cancer with liver metastasis. Attending Statement Pain is under control on morphine Eating lunch Family at bedside Patient desires chemotherapy, This will be given next week Thursday. Home soon The exam, history, and the medical decision-making described in the above note were completed with the assistance of the mid-level provider. I reviewed and agree with the findings presented. I attest that I had a [id number] encounter with the patient on the same day, and personally performed and documented my assessment and findings in the medical record. Didi Yanes Apr 20, 2017 13:56 Madeleine Horn MD Apr 20, 2017 23:42
[2017-04-20] MEDS ORDERED: MORPHINE SULFATE 15 MG CONTROLLED RELEASE TAB PO SCH (14:00)
[2017-04-20] MEDS: ENOXAPARIN SODIUM 40 MG/0.4 ML SYRINGE SQ SCH (16:33)
[2017-04-20] MEDS: MEGESTROL ACETATE SUSP 400 MG/10 ML CUP PO SCH (16:33)
[2017-04-20 17:30] VITALS: BP 108/70; PULSE 109; RESP 18; TEMP 96.5; O2SAT 99
--- NOTE | 2017-04-20 17:59 | RADRPT ---
EXAM DATE/TIME: 04/20/2017 16:52 [facility] COMPARISON: No previous studies available for comparison. INDICATIONS : Short of breath. MEDICAL HISTORY : Carcinoma, lung. SURGICAL HISTORY : Infusaport. ENCOUNTER: Initial ACUITY: 1 week PAIN SCORE: 0/10 LOCATION: Bilateral chest FINDINGS: PA and lateral views of the chest demonstrate the lungs to be symmetrically aerated without evidence of mass, infiltrate or effusion. Low lung volumes. The cardiomediastinal contours are unremarkable. Osseous structures are intact. Power port overlies the right chest. CONCLUSION: Low lung volumes. No infiltrates or effusions. Estevan Vyas Jr., MD on April 20, 2017 at 17:57 Board Certified Radiologist. This report was verified electronically.
[2017-04-20] MEDS: SODIUM CHLOR 0.9% 1000 ML INJ 1,000 ML IV SCH ×2 (19:56→21:15)
[2017-04-20 20:00] VITALS: BP 125/70; PULSE 111; RESP 18; TEMP 96.1; O2SAT 95
[2017-04-20 20:40] LABS: HEMOGLOBIN A1a 1.1 %; HEMOGLOBIN A1b 0.7 %; HEMOGLOBIN F 1.6 %; HEMOGLOBIN LA1C 1.5 %
[2017-04-20 21:06] LABS: HEMOGLOBIN Ao 85.4 %; HEMOGLOBIN P3 4.1 %
[2017-04-20] MEDS: cefTRIAXone INJ 2,000 MG in SODIUM CHLORIDE 0.9% INJ 100 ML IV SCH (22:16)
--- NOTE | 2017-04-20 22:22 | MB ---
cc: TONIO ALMONTE MD DATE OF CONSULTATION 04/20/2017 REASON FOR CONSULTATION Acute kidney injury with elevated BUN and creatinine. HISTORY OF PRESENT ILLNESS This is 47-year-old male with past medical history of metastatic colon cancer diagnosed in 2014, history of diabetes mellitus, came to the hospital with complaint of abdominal pain and back pain. I was called to see the patient because of elevated BUN and creatinine. The patient denies any previous history of renal disease. When he came in here his creatinine was 1.4 and has gone to 1.8. Previously he has creatinine of 0.9-1.0 this was in September of this year. According to the patient he was getting chemotherapy until September of this year and now he has been following with oncology while he is in the hospital here. He has this abdominal pain and distension along with back pain. There was some nausea, no vomiting. He does not have any diarrhea and has constipation. Denies any dysuria, hematuria but did notice that urine output is decreased and the urine is dark in color. He was taking Dilaudid for pain. Denies taking any nonsteroidal anti-inflammatory drugs. PAST MEDICAL HISTORY 1. Metastatic colon cancer. 2. History of diabetes mellitus. PAST SURGICAL HISTORY Placement of port in the right chest. REVIEW OF SYSTEMS Denies any headache, dizziness or blurring of vision. The patient has generalized weakness. He has dry mouth. Occasionally he has nausea. There is no vomiting. Denies any shortness of breath. No chest pain. No palpitation. No history of diarrhea. He has abdominal distension and pain along with back pain. There is no dysuria, hematuria or difficulty in passing urine but he did notice that the urine output is decreased and it is dark in color. SOCIAL HISTORY The patient is . There is no history of smoking or alcoholism. FAMILY HISTORY Positive for stomach cancer from grandmother side. ALLERGIES NO KNOWN DRUG ALLERGIES. MEDICATIONS Currently he is on: 1. Normal saline at 125 an hour. 2. Aniya-Colace 1 tablet b.i.d. 3. Vitamin K 10 mg subcu daily. 4. Furosemide 40 mg daily. 5. Megace 400 milligrams daily. 6. Albumin 25 grams IV q.12 h. 7. Ceftriaxone 1 gram q.24h. 8. Lovenox 40 mg subcu q.24 h. 9. Tylenol as needed. 10. Zofran as needed, 11. Dulcolax as needed. 12. Morphine as needed. PHYSICAL EXAMINATION GENERAL: On examination the patient is awake, alert. He is not in acute distress. VITAL SIGNS: His last blood pressure 113/70. Temperature 97.7, oxygen saturation on room air 95-96%. There is no significant hypotensive episode during this admission. The lowest recorded is 99/69. HEENT: Pupils are mid constricted. Nonicteric sclera, conjunctiva pale. NECK: Supple. JVD is not elevated. LUNGS: He has bilateral decreased air entry with occasional wheezing. HEART: S1-S2, regular rhythm. ABDOMEN: Distended, soft, lax. There is ascites. No tenderness. Bowel sounds positive. EXTREMITIES: He has bilateral 2+ leg edema. LABORATORY DATA Investigations, WBC count is 9.7, hemoglobin 8.6, platelet count of 276, neutrophils 79.4%. Sodium is 131. Potassium 4.4, chloride 99, bicarb 20.8, BUN 32, creatinine 1.84. Lactic acid is 4.2. Corrected calcium is 7.4. Iron saturation is 22.2, ferritin is 933. AST is 633, total bilirubin is 13.1, ALT 79, albumin is 1.7, total protein 7.3. INR is 1.6. Urinalysis showing protein of 30 with large bilirubin, rbc's 5, wbc's 6. IMAGING STUDIES The patient had a CT scan of the abdomen and pelvis done yesterday which shows cecal mass with malignancy appearance with metastatic disease to the liver and the kidneys. Mass eroded the bowel and the surrounding mesentery. There are simple cysts in the kidneys, the largest on the right side measured 1.8 cm. Ultrasound of the lower extremities done which was negative for DVT on the right side. ASSESSMENT/PLAN 1. Acute kidney injury. 2. Metastatic colon cancer. 3. Liver metastasis with elevated liver enzymes. 4. Hypoalbuminemia and edema. The patient has been followed by oncology and they have recommended hospice. His overall prognosis is not very good. The etiology of acute kidney injury could be related to ATN with very high bilirubin or there is a possibility of hepatorenal which is unlikely. I will check the urine sodium osmolality. I will discontinue the Lasix and continue gentle hydration since he is not taking much orally. Avoid any nephrotoxins. He is not scheduled to get any chemotherapy at present. Thank you for the consultation and I will follow the patient while he is in the hospital. MD MERON BeltranJ/KK /4:18 PM /10:04 PM
[2017-04-20 23:00] LABS: APTT (PATIENT) 45.6 SEC (24.3-30.1); INTERNATIONAL NORMALIZED RATIO 1.3 RATIO; PROTHROMBIN TIME - PATIENT 14.6 SEC (9.8-11.6)
[2017-04-21] VITALS: BP 109/70; PULSE 112; RESP 18; TEMP 97; O2SAT 97
[2017-04-21 00:27] LABS: LACTIC ACID GHOST NOT REPORTABLE
[2017-04-21] MEDS: SODIUM CHLOR 0.9% 1000 ML INJ 1,000 ML IV SCH ×2 (05:15→21:15)
[2017-04-21 05:36] LABS: AUTOMATED NEUTROPHIL # 7.5 TH/MM3 (1.8-7.7); BASOPHIL # 0.1 TH/MM3 (0-0.2); BASOPHIL % 0.7 % (0.0-2.0); EOSINOPHIL # 0.1 TH/MM3 (0-0.4); EOSINOPHIL % 0.9 % (0.0-4.0); HEMATOCRIT 25.6 % (39.0-51.0); LYMPH % 6.6 % (9.0-44.0); LYMPHOCYTE # 0.6 TH/MM3 (1.0-4.8); MEAN CORPUSCULAR HEMOGLOBIN 32.8 PG (27.0-34.0); MEAN CORPUSCULAR HGB CONC 33.8 % (32.0-36.0); MONO % 10.5 % (0.0-8.0); NEUT % 81.3 % (16.0-70.0); PLATELET COUNT 236 TH/MM3 (150-450); RED BLOOD COUNT 2.64 MIL/MM3 (4.50-5.90); RED CELL DISTRIBUTION WIDTH 20.8 % (11.6-17.2); WHITE BLOOD COUNT 9.2 TH/MM3 (4.0-11.0)
[2017-04-21 05:51] LABS: HEMO FLAGS AUTO DIFF
[2017-04-21 05:54] LABS: APTT (PATIENT) 44.8 SEC (24.3-30.1); INTERNATIONAL NORMALIZED RATIO 1.3 RATIO; PROTHROMBIN TIME - PATIENT 14.4 SEC (9.8-11.6)
[2017-04-21 06:46] LABS: ALKALINE PHOSPHATASE 399 U/L (45-117); ALT (GPT) 56 U/L (12-78); ANION GAP 14 MEQ/L (5-15); AST (GOT) 327 U/L (15-37); BLOOD UREA NITROGEN 38 MG/DL (7-18); CHLORIDE 99 MEQ/L (98-107); GLOMERULAR FILTRATION RATE 34 ML/MIN (>89); MAGNESIUM 2.5 MG/DL (1.5-2.5); SODIUM (NA) 131 MEQ/L (136-145); TOTAL BILIRUBIN ADULT 13.9 MG/DL (0.2-1.0)
[2017-04-21 08:26] VITALS: BP 123/71; PULSE 113; RESP 20; TEMP 96.8; O2SAT 97
[2017-04-21] MEDS ORDERED: MORPHINE SULFATE 15 MG CONTROLLED RELEASE TAB PO SCH (09:00)
[2017-04-21 09:21] LABS: BANDS 15 % (0-6); NEUTROPHIL # MANUAL DIFF 8.1 TH/MM3 (1.8-7.7); PLATELET ESTIMATE SMEAR NORMAL (NORMAL); PLATELET MORPHOLOGY NORMAL (NORMAL); POLYS (SEG NEUTROPHILS) 73 % (16-70); SCAN/DIFF FINAL DIFF MANUAL; WBC DIFF SAMPLE 100
[2017-04-21 10:00] VITALS: BP 116/71; PULSE 110
[2017-04-21] MEDS: DOCUSATE SODIUM 50 MG/SENNA 8.6 MG TAB PO SCH ×2 (10:00→21:00)
[2017-04-21] MEDS: ALBUMIN HUMAN 25% 25 GM/100 ML BAGP IV SCH ×2 (10:01→21:08)
[2017-04-21] MEDS: MEGESTROL ACETATE SUSP 400 MG/10 ML CUP PO SCH (10:01)
[2017-04-21] MEDS: SODIUM CHLORIDE 0.9% FLUSH 10 ML FLUSH IV FLUSH SCH ×2 (10:01→21:08)
[2017-04-21] MEDS: PHYTONADIONE 10 MG/ML VIAL SQ SCH (10:02)
--- NOTE | 2017-04-21 11:46 | PD.ONC.PN ---
Subjective Subjective Remarks Afebrile overnight. Patient was constipated this AM, but was able to have a bowel movement. Having some pain in his back, improved with MSIR. Objective Data Date Time Temp Pulse Resp B/P Pulse Ox O2 Delivery O2 Flow Rate FiO2 04/21/17 10:00 110 116/71 04/21/17 08:26 96.8 113 20 123/71 97 04/21/17 00:00 97.0 112 18 109/70 97 04/20/17 20:00 96.1 111 18 125/70 95 04/20/17 17:30 96.5 109 18 108/70 99 04/20/17 12:00 97.7 94 16 113/73 96 Result Diagram: 04/21/17 0520 04/21/17 0520 Laboratory Results Laboratory Tests Test 04/20/17 04/21/17 22:15 05:20 Prothrombin Time 14.6 SEC 14.4 SEC Prothromb Time International 1.3 RATIO 1.3 RATIO Ratio Activated Partial 45.6 SEC 44.8 SEC Thromboplast Time Lactic Acid Level 3.3 mmol/L 3.2 mmol/L White Blood Count 9.2 TH/MM3 Red Blood Count 2.64 MIL/MM3 Hemoglobin 8.7 GM/DL Hematocrit 25.6 % Mean Corpuscular Volume 97.0 FL Mean Corpuscular Hemoglobin 32.8 PG Mean Corpuscular Hemoglobin 33.8 % Concent Red Cell Distribution Width 20.8 % Platelet Count 236 TH/MM3 Mean Platelet Volume 6.9 FL Neutrophils (%) (Auto) 81.3 % Lymphocytes (%) (Auto) 6.6 % Monocytes (%) (Auto) 10.5 % Eosinophils (%) (Auto) 0.9 % Basophils (%) (Auto) 0.7 % Neutrophils # (Auto) 7.5 TH/MM3 Lymphocytes # (Auto) 0.6 TH/MM3 Monocytes # (Auto) 1.0 TH/MM3 Eosinophils # (Auto) 0.1 TH/MM3 Basophils # (Auto) 0.1 TH/MM3 CBC Comment AUTO DIFF Differential Total Cells 100 Counted Neutrophils % (Manual) 73 % Band Neutrophils % 15 % Lymphocytes % 5 % Monocytes % 7 % Neutrophils # (Manual) 8.1 TH/MM3 Differential Comment FINAL DIFF MANUAL Platelet Estimate NORMAL Platelet Morphology Comment NORMAL Sodium Level 131 MEQ/L Potassium Level 4.0 MEQ/L Chloride Level 99 MEQ/L Carbon Dioxide Level 18.0 MEQ/L Anion Gap 14 MEQ/L Blood Urea Nitrogen 38 MG/DL Creatinine 2.11 MG/DL Estimat Glomerular Filtration 34 ML/MIN Rate Random Glucose 111 MG/DL Calcium Level 8.4 MG/DL Phosphorus Level 4.2 MG/DL Magnesium Level 2.5 MG/DL Total Bilirubin 13.9 MG/DL Aspartate Amino Transf 327 U/L (AST/SGOT) Alanine Aminotransferase 56 U/L (ALT/SGPT) Alkaline Phosphatase 399 U/L Total Protein 7.2 GM/DL Albumin 1.9 GM/DL Carcinoembryonic Antigen 08749.7 NG/ML Culture Results Microbiology Date/Time Procedure Status Source Growth 04/20/17 20:15 Aerobic Blood Culture - Preliminary Resulted Blood Peripheral NO GROWTH IN 1 DAY 04/20/17 20:15 Anaerobic Blood Culture - Preliminary Resulted Blood Peripheral NO GROWTH IN 1 DAY 04/20/17 20:20 Aerobic Blood Culture - Preliminary Resulted Blood Peripheral NO GROWTH IN 1 DAY 04/20/17 20:20 Anaerobic Blood Culture - Preliminary Resulted Blood Peripheral NO GROWTH IN 1 DAY Administered Medications Medications (Trade) Dose Ordered Sig/Gary Route PRN Reason Start Time Stop Time Status Last Admin Dose Admin Sodium Chloride (NS Flush) 2 ml BID IV FLUSH 04/19/17 21:00 04/21/17 10:01 Ondansetron HCl (Zofran Inj) 4 mg Q6H PRN IVP NAUSEA OR VOMITING 04/19/17 17:15 04/19/17 18:05 Enoxaparin Sodium (Lovenox Inj) 40 mg Q24H SQ 04/19/17 18:00 04/20/17 16:33 Senna/Docusate Sodium (Aniya-Colace) 1 tab BID PO 04/19/17 21:00 04/21/17 10:00 Sennosides (Senokot) 17.2 mg Q12H PRN PO MODERATE - SEVERE CONSTIPATION 04/19/17 17:15 04/20/17 18:59 Albumin Human (Albumin 25% Inj) 25 gm Q12H IV 04/19/17 20:00 04/21/17 10:01 Phytonadione 10 mg 10 mg DAILY SQ 04/20/17 09:00 04/21/17 10:02 Ceftriaxone Sodium/Sodium Chloride (Rocephin Inj/NS Inj) 100 ml @ 200 mls/hr Q24H IV 04/19/17 22:00 04/20/17 22:16 Morphine Sulfate 15 mg 15 mg Q3H PRN PO PAIN SCALE 1 TO 4 04/20/17 13:00 04/21/17 10:01 Sodium Chloride (NS 1000 ml Inj) 1,000 ml @ 125 mls/hr Q8H IV 04/20/17 13:15 04/21/17 05:15 Megestrol Acetate (Megace Liq) 400 mg DAILY PO 04/20/17 16:00 04/21/17 10:01 Objective Remarks GENERAL: Middle aged male lying in bed in nad. SKIN: Warm and dry. HEAD: Normocephalic. EYES: No injection or drainage. NECK: Supple, trachea midline. CARDIOVASCULAR: +S1/S2, tachy RESPIRATORY: Breath sounds equal bilaterally. No accessory muscle use. GASTROINTESTINAL: Abdomen distended, tight with ascites. EXTREMITIES: No cyanosis, BLE edema NEUROLOGICAL: awake and alert, normal speech. Assessment/Plan Problem List: (1) Metastatic colon cancer to liver Status: Acute Plan: 04/21: pain well controlled with MSIR, continue PRN MSIR. increase lactulose to BID PRN -- History of colon cancer with liver metastasis diagnosed two years ago in 2014. --initially was treated with Xelox, then Avastin and FOLFOX chemotherapy with an excellent response. --elected to stop further chemotherapy in November due to financial reasons. --now has extensive liver metastasis and the cancer has now progressed into both lungs. -- have strongly recommended Hospice for best supportive care. I do not think the patient would be able to tolerate further chemotherapy due to the extensive metastasis as well as liver failure. --recommended Hospice for best supportive care. However, the patient and his family adamantly declined. (2) Jaundice Status: Acute Plan: --has severe jaundice due to extensive liver metastasis. --patient does not have any dilated bile duct so the patient does not have any obstruction of the bile ducts. This is all hepatocellular disease from extensive colon metastasis. Assessment 47y/o male with metastatic colon cancer. h/o Morbid obesity. Depression. Diabetes mellitus. Colon cancer with liver metastasis. Attending Statement Pain is under control Complaining of constipation CEA is very high Home soon Chemo next week Thursday The exam, history, and the medical decision-making described in the above note were completed with the assistance of the mid-level provider. I reviewed and agree with the findings presented. I attest that I had a [id number] encounter with the patient on the same day, and personally performed and documented my assessment and findings in the medical record. Didi Yanes Apr 21, 2017 11:46 Madeleine Horn MD Apr 22, 2017 00:42
[2017-04-21 12:07] VITALS: BP 129/71; PULSE 110; RESP 20; TEMP 97.4; O2SAT 95
[2017-04-21 16:16] VITALS: BP 131/77; PULSE 109; RESP 20; TEMP 96; O2SAT 95
--- NOTE | 2017-04-21 16:18 | HHI.PR ---
Subjective Remarks Patient denies abdominal pain denies cp/sob states appetite is improving denies fevers/chills creatinine worsening Objective Vitals Vital Signs Date Time Temp Pulse Resp B/P Pulse Ox O2 Delivery O2 Flow Rate FiO2 04/21/17 12:07 97.4 110 20 129/71 95 04/21/17 10:00 110 116/71 04/21/17 08:26 96.8 113 20 123/71 97 04/21/17 00:00 97.0 112 18 109/70 97 04/20/17 20:00 96.1 111 18 125/70 95 04/20/17 17:30 96.5 109 18 108/70 99 I/O 04/20/17 04/20/17 04/20/17 04/21/17 04/21/17 04/21/17 07:00 15:00 23:00 07:00 15:00 23:00 Intake Total 630 ml 480 ml Output Total 0 ml Balance 630 ml 480 ml Intake Oral 480 ml IV Total 630 ml Output Urine Total 0 ml # Voids 1 2 # Bowel Movements 0 1 Result Diagram: 04/21/17 0520 04/21/17 0520 Imaging Last Impressions Chest X-Ray 04/20/17 0000 Signed Impressions: Service Date/Time: Thursday, April 20, 2017 16:52 - CONCLUSION: Low lung volumes. No infiltrates or effusions. Estevan Vyas Jr., MD Lower Extremity Ultrasound 04/19/17 1703 Signed Impressions: Service Date/Time: Wednesday, April 19, 2017 18:50 - CONCLUSION: No DVT right leg. Sea Solano MD Abdomen/Pelvis CT 04/19/17 1017 Signed Impressions: Service Date/Time: Wednesday, April 19, 2017 12:54 - CONCLUSION: 1. Malignant appearing cecal mass with metastatic disease to the liver and lungs. 2. The mass has eroded through the bowel wall with involvement of the surrounding mesentery and possibly small metastatic lymph nodes locally at the site with slight ascites and early peritoneal carcinomatosis is not excluded Elton Nunn MD Objective Remarks GENERAL: This is a mal-nourished, well-developed patient, in no apparent distress. SKIN: No rashes, ecchymoses or lesions. Cool and dry. (+) Jaundice HEAD: Atraumatic. Normocephalic. No temporal or scalp tenderness. EYES: Pupils equal round and reactive. Extraocular motions intact. No injection or drainage. (+) icteric sclerae ENT: Nose without bleeding, purulent drainage or septal hematoma. Throat without erythema, tonsillar hypertrophy or exudate. Uvula midline. Airway patent. NECK: Trachea midline. No JVD or lymphadenopathy. Supple, nontender, no meningeal signs. CARDIOVASCULAR: Regular rate and rhythm without murmurs, gallops, or rubs. RESPIRATORY: Clear to auscultation. Breath sounds equal bilaterally. No wheezes , rales, or rhonchi. GASTROINTESTINAL: Abdomen soft, effusion tender to palpation, tended. No hepato- splenomegaly, or palpable masses. No guarding. (+) ascites MUSCULOSKELETAL: Extremities without clubbing, cyanosis, there is edema in the right lower extremity. No joint tenderness, effusion, or edema noted. No calf tenderness. Negative Homans sign bilaterally. NEUROLOGICAL: Awake and alert. Cranial nerves II through XII intact. Motor and sensory grossly within normal limits. Five out of 5 muscle strength in all muscle groups. Normal speech. Procedures none Medications and IVs Current Medications Medications (Trade) Dose Ordered Sig/Gary Route Start Time Stop Time Status Last Admin (NS Flush) 2 ml UNSCH PRN IV FLUSH 04/19/17 17:15 (NS Flush) 2 ml BID IV FLUSH 04/19/17 21:00 04/21/17 10:01 (Tylenol) 650 mg Q4H PRN PO 04/19/17 17:15 (Zofran Inj) 4 mg Q6H PRN IVP 04/19/17 17:15 04/19/17 18:05 (Lovenox Inj) 40 mg Q24H SQ 04/19/17 18:00 04/20/17 16:33 (Aniya-Colace) 1 tab BID PO 04/19/17 21:00 04/21/17 10:00 (Milk Of Magnesia Liq) 30 ml Q12H PRN PO 04/19/17 17:15 (Senokot) 17.2 mg Q12H PRN PO 04/19/17 17:15 04/20/17 18:59 (Dulcolax Supp) 10 mg DAILY PRN RECTAL 04/19/17 17:15 (Albumin 25% Inj) 25 gm Q12H IV 04/19/17 20:00 04/21/17 10:01 Phytonadione 10 mg 10 mg DAILY SQ 04/20/17 09:00 04/21/17 10:02 (Rocephin Inj/NS Inj) 100 ml @ 200 mls/hr Q24H IV 04/19/17 22:00 04/20/17 22:16 (Msir) 15 mg Q3H PRN PO 04/20/17 13:00 04/21/17 10:01 Morphine Sulfate 30 mg 30 mg Q4H PRN PO 04/20/17 13:00 (NS 1000 ml Inj) 1,000 ml @ 125 mls/hr Q8H IV 04/20/17 13:15 04/21/17 05:15 (Megace Liq) 400 mg DAILY PO 04/20/17 16:00 04/21/17 10:01 (Lactulose Liq) 30 ml Q12HR PRN PO 04/21/17 21:00 A/P Problem List: (1) Metastatic colon cancer to liver ICD Code: C18.9 Status: Acute Plan: With the patient on outpatient observation Provide pain control with IV morphine Dr Horn has been consulted and he recommended hospice care given that metastatic disease is pretty advanced given her failure. However upon insistence from family and patient, chemotherapy will be tried again as an outpatient. (2) Transaminitis ICD Code: R74.0 Status: Acute Plan: Transaminitis with elevated alkaline phosphatase and coagulopathy likely secondary to liver failure due to metastatic liver disease. transaminases are slowly trending down. ALT now within normal range. ALk phos trending down. Continue to monitor liver function tests. ammonia level is normal (3) Elevated alkaline phosphatase level ICD Code: R74.8 Status: Acute Plan: As above (4) NICOLÁS (acute kidney injury) ICD Code: N17.9 Status: Acute Plan: Suspect secondary to prerenal azotemia map patient also with decreased oral intake. Possibly decreased effective intravascular volume. Patient started an IV albumin and IV fluids Continue to monitor BUN/creatinine and creatinine, strict I's and O's, avoid nephrotoxins. Creatinine is trending up and acute kidney injury is worsening. Npehrology consulted, appreciate recommendations. Suspected ATN. (5) Hyponatremia ICD Code: E87.1 Status: Acute Plan: Hyponatremia seems to be slightly worse. We'll continue to monitor BMP. We'll check urine and serum osmolality. (6) Diabetes ICD Code: E11.9 Status: Chronic Plan: hemoglobin a1c 5.1. Diabetes is controlled. place on SSI with insulin Novolog and monito accuchecks. (7) Anemia ICD Code: D64.9 Status: Acute Plan: Normal MCV anemia. Studies consistent with anemia of chronic disease likely secondary to malignancy. Continue to monitor hemoglobin which has trended down likely after IV fluid administration. 04/21 hemoglobin stable. (8) Severe protein-calorie malnutrition ICD Code: E43 Status: Acute Plan: Dietitian consulted and recommendations appreciated. Continue Megace for appetite stimulant. Will increase diet to 2200 ADA diet and start a multivitamin daily. (9) Coagulopathy ICD Code: D68.9 Status: Acute Plan: Likely secondary to liver failure secondary to liver metastasis. Continue to monitor PT, PTT, continue vitamin K. (10) Edema of right lower extremity ICD Code: R60.0 Status: Acute (11) Elevated lactic acid level ICD Code: R79.89 Status: Acute Plan: Likely elevated secondary to dehydration and cancer. Continue IV fluids. Continue to monitor lactic acid. (12) Abdominal pain ICD Code: R10.9 Status: Acute Plan: Likely secondary to metastatic colon cancer. However cannot rule out SBP given that there is increased lactic acid and pain. 04/20 Continue IV Rocephin, amount of ascites seen on CT abdomen seems to be not enough for abdominal paracentesis. (13) Jaundice ICD Code: R17 Status: Acute Plan: due to liver failure due to metastasis. Continue to monitor liver function tests. (14) SIRS (systemic inflammatory response syndrome) ICD Code: R65.10 Status: Acute Plan: Patient meets SIRS criteria - tachycardia more than 16% bands. Urinalysis negative, will check a chest x-ray and blood cultures Continue IV Rocephin. 04/21 Peripheral blood cultures negative x1, check blood cultures from central line. Consult infectious disease. Assessment and Plan DVT prophylaxis: SCDs, Lovenox subcutaneously. Discharge Planning Continue to monitor in the medical floor. Discharge pending clinical improvement and improvement of renal function. Problem Qualifiers (1) Diabetes: Qualified Code: E11.9 - Type 2 diabetes mellitus without complication, with long-term current use of insulin (2) Anemia: Qualified Code: D64.9 - Anemia, unspecified type (3) Abdominal pain: Qualified Code: R10.84 - Generalized abdominal pain Audi Negrete MD Apr 21, 2017 16:18
--- NOTE | 2017-04-21 18:07 | HHI.NPPN ---
Subjective Renal Failure: Acute History of Present Illness 47-year-old male with past medical history of metastatic colon cancer diagnosed in 2014, history of diabetes mellitus, came to the hospital with complaint of abdominal pain and back pain. I was called to see the patient because of elevated BUN and creatinine. The patient denies any previous history of renal disease. When he came in here his creatinine was 1.4 and has gone to 1.8. Previously he has creatinine of 0.9-1.0 this was in September of this year. Additional Remarks Patient is alert, no nausea, no SOB, mild abd. discomfort. Review of Systems General Constitutional: Fatigue Gastrointestinal Gastrointestinal: Abdominal Pain Objective Data Data 04/20/17 04/21/17 19:00 07:00 # Voids 1 Vital Signs Date Time Temp Pulse Resp B/P Pulse Ox O2 Delivery O2 Flow Rate FiO2 04/21/17 16:16 96.0 109 20 131/77 95 04/21/17 12:07 97.4 110 20 129/71 95 04/21/17 10:00 110 116/71 04/21/17 08:26 96.8 113 20 123/71 97 04/21/17 00:00 97.0 112 18 109/70 97 04/20/17 20:00 96.1 111 18 125/70 95 -: 04/21/17 0520 04/21/17 0520 Microbiology 04/20/17 Aerobic Blood Culture - Preliminary, Resulted NO GROWTH IN 1 DAY 04/20/17 Anaerobic Blood Culture - Preliminary, Resulted NO GROWTH IN 1 DAY 04/20/17 Aerobic Blood Culture - Preliminary, Resulted NO GROWTH IN 1 DAY 04/20/17 Anaerobic Blood Culture - Preliminary, Resulted NO GROWTH IN 1 DAY Physical Exam General Appearance: No Acute Distress, Comfortable Throat Throat Exam: Oral Mucosa [place] & Moist Pulmonary Resp Exam: Breath Sounds Equal, No Distress, Rhonchi, Decreased Bases Cardiology CV Exam: Regular, Normal Sinus Rhythm Gastrointestinal/Abdomen GI Exam: Soft, Non-Tender, Bowel Sounds Present, Distended Extremeties Extremities Exam: Moderate Edema, Pitting Edema Neurologic Neuro Exam: Alert, Awake, Oriented Psychiatric Psych Exam: Appropriate Responses Assessment/Plan Assessment Summary: NICOLÁS/Acute Renal Failure Problem List: (1) Elevated lactic acid level (2) Diabetes (3) Liver failure (4) Metastatic colon cancer to liver (5) Jaundice (6) NICOLÁS (acute kidney injury) Plan Patient has been non oliguric. Creatinine still increasing. Get Urine Na. and osmolality. Most likely has ATN causing NICOLÁS. Encourage oral intake. Follow urine out put and bMP. Avoid Nephrotoxins. Problem Qualifiers (1) Diabetes: Qualified Code: E11.9 - Type 2 diabetes mellitus without complication, with long-term current use of insulin (2) Liver failure: Qualified Code: K72.00 - Subacute liver failure without hepatic coma Ancelmo Zarate MD Apr 21, 2017 18:07
[2017-04-21 20:00] VITALS: BP 120/69; PULSE 114; RESP 17; TEMP 97; O2SAT 95
[2017-04-21] MEDS: ENOXAPARIN SODIUM 40 MG/0.4 ML SYRINGE SQ SCH (20:09)
[2017-04-21] MEDS ORDERED: LACTULOSE SYRUP 20 GM/30 ML CUP PO PRN (21:00)
[2017-04-21] MEDS ORDERED: GLUCAGON 1 MG/ML VIAL OTHER PRN (22:15)
[2017-04-21] MEDS ORDERED: DEXTROSE 50% IN WATER 50 ML VIAL(D50) IV PRN (22:15)
[2017-04-21] MEDS: cefTRIAXone INJ 2,000 MG in SODIUM CHLORIDE 0.9% INJ 100 ML IV SCH (23:24)
[2017-04-22] VITALS: BP 123/67; PULSE 107; RESP 18; TEMP 96.4; O2SAT 94
[2017-04-22 04:00] VITALS: BP 130/68; PULSE 108; RESP 17; TEMP 97; O2SAT 98
[2017-04-22] MEDS: SODIUM CHLOR 0.9% 1000 ML INJ 1,000 ML IV SCH (05:45)
[2017-04-22 06:22] LABS: AUTOMATED NEUTROPHIL # 9.4 TH/MM3 (1.8-7.7); BASOPHIL # 0.1 TH/MM3 (0-0.2); BASOPHIL % 0.4 % (0.0-2.0); EOSINOPHIL # 0.1 TH/MM3 (0-0.4); EOSINOPHIL % 0.9 % (0.0-4.0); HEMATOCRIT 25.3 % (39.0-51.0); LYMPH % 6.9 % (9.0-44.0); LYMPHOCYTE # 0.8 TH/MM3 (1.0-4.8); MEAN CORPUSCULAR HEMOGLOBIN 31.4 PG (27.0-34.0); MEAN CORPUSCULAR HGB CONC 31.7 % (32.0-36.0); MONO % 11.6 % (0.0-8.0); NEUT % 80.2 % (16.0-70.0); PLATELET COUNT 249 TH/MM3 (150-450); RED BLOOD COUNT 2.55 MIL/MM3 (4.50-5.90); RED CELL DISTRIBUTION WIDTH 20.9 % (11.6-17.2); WHITE BLOOD COUNT 11.8 TH/MM3 (4.0-11.0)
[2017-04-22 06:26] LABS: HEMO FLAGS AUTO DIFF
[2017-04-22 06:49] LABS: ANION GAP 15 MEQ/L (5-15); AST (GOT) 178 U/L (15-37); BICARBONATE 15.9 MEQ/L (21.0-32.0); BLOOD UREA NITROGEN 48 MG/DL (7-18); CHLORIDE 101 MEQ/L (98-107); GLOMERULAR FILTRATION RATE 29 ML/MIN (>89); POTASSIUM 3.9 MEQ/L (3.5-5.1); SODIUM (NA) 132 MEQ/L (136-145)
[2017-04-22 06:51] LABS: ALT (GPT) 39 U/L (12-78)
[2017-04-22 06:54] LABS: ALKALINE PHOSPHATASE 323 U/L (45-117); TOTAL BILIRUBIN ADULT 14.8 MG/DL (0.2-1.0)
[2017-04-22] MEDS: INSULIN ASPART SUPPLEMENTAL SCALE SQ SCH ×4 (06:56→20:23)
[2017-04-22 06:58] LABS: INTERNATIONAL NORMALIZED RATIO 1.3 RATIO; PROTHROMBIN TIME - PATIENT 14.2 SEC (9.8-11.6)
[2017-04-22 08:00] VITALS: BP 124/62; PULSE 109; RESP 16; TEMP 97.7; O2SAT 97
[2017-04-22 08:00] LABS: LACTIC ACID GHOST NOT REPORTABLE
[2017-04-22 08:20] LABS: BANDS 15 % (0-6); METAMYELOCYTES 2 % (0-1); NEUTROPHIL # MANUAL DIFF 10.5 TH/MM3 (1.8-7.7); POLYS (SEG NEUTROPHILS) 71 % (16-70); PROMYELOCYTES 1 % (0-0); WBC DIFF SAMPLE 100
[2017-04-22 08:22] LABS: PLATELET ESTIMATE SMEAR NORMAL (NORMAL); PLATELET MORPHOLOGY NORMAL (NORMAL); SCAN/DIFF FINAL DIFF MANUAL
[2017-04-22] MEDS ORDERED: SODIUM CHLOR 0.9% 250 ML INJ 250 ML IV ONE (08:30)
[2017-04-22] MEDS: DOCUSATE SODIUM 50 MG/SENNA 8.6 MG TAB PO SCH ×2 (09:00→20:20)
[2017-04-22] MEDS ORDERED: FUROSEMIDE 20 MG/2 ML VIAL IV ONE (09:00)
[2017-04-22] MEDS: SODIUM CHLORIDE 0.9% FLUSH 10 ML FLUSH IV FLUSH SCH ×2 (09:00→20:27)
[2017-04-22] MEDS: ALBUMIN HUMAN 25% 25 GM/100 ML BAGP IV SCH ×2 (09:12→20:23)
[2017-04-22] MEDS: PHYTONADIONE 10 MG/ML VIAL SQ SCH (09:12)
[2017-04-22] MEDS: MEGESTROL ACETATE SUSP 400 MG/10 ML CUP PO SCH (09:12)
[2017-04-22 12:00] VITALS: BP 123/70; PULSE 107; RESP 14; TEMP 97.6; O2SAT 94
--- NOTE | 2017-04-22 13:08 | PD.ONC.PN ---
Subjective Subjective Remarks Afebrile overnight. Denies pain today. Feeling well. No complaints. Objective Data Date Time Temp Pulse Resp B/P Pulse Ox O2 Delivery O2 Flow Rate FiO2 04/22/17 08:00 97.7 109 16 124/62 97 04/22/17 04:00 97.0 108 17 130/68 98 04/22/17 00:00 96.4 107 18 123/67 94 04/21/17 20:00 97.0 114 17 120/69 95 04/21/17 16:16 96.0 109 20 131/77 95 04/22/17 04/22/17 04/22/17 07:00 15:00 23:00 Intake Total 2135 ml Balance 2135 ml Result Diagram: 04/22/17 0555 04/22/17 0555 Laboratory Results Laboratory Tests Test 04/22/17 04/22/17 05:53 05:55 Lactic Acid Level 2.9 mmol/L White Blood Count 11.8 TH/MM3 Red Blood Count 2.55 MIL/MM3 Hemoglobin 8.0 GM/DL Hematocrit 25.3 % Mean Corpuscular Volume 99.0 FL Mean Corpuscular Hemoglobin 31.4 PG Mean Corpuscular Hemoglobin 31.7 % Concent Red Cell Distribution Width 20.9 % Platelet Count 249 TH/MM3 Mean Platelet Volume 6.8 FL Neutrophils (%) (Auto) 80.2 % Lymphocytes (%) (Auto) 6.9 % Monocytes (%) (Auto) 11.6 % Eosinophils (%) (Auto) 0.9 % Basophils (%) (Auto) 0.4 % Neutrophils # (Auto) 9.4 TH/MM3 Lymphocytes # (Auto) 0.8 TH/MM3 Monocytes # (Auto) 1.4 TH/MM3 Eosinophils # (Auto) 0.1 TH/MM3 Basophils # (Auto) 0.1 TH/MM3 CBC Comment AUTO DIFF Differential Total Cells 100 Counted Neutrophils % (Manual) 71 % Band Neutrophils % 15 % Lymphocytes % 3 % Monocytes % 8 % Neutrophils # (Manual) 10.5 TH/MM3 Metamyelocytes 2 % Promyelocytes 1 % Differential Comment FINAL DIFF MANUAL Platelet Estimate NORMAL Platelet Morphology Comment NORMAL Prothrombin Time 14.2 SEC Prothromb Time International 1.3 RATIO Ratio Activated Partial 37.0 SEC Thromboplast Time Sodium Level 132 MEQ/L Potassium Level 3.9 MEQ/L Chloride Level 101 MEQ/L Carbon Dioxide Level 15.9 MEQ/L Anion Gap 15 MEQ/L Blood Urea Nitrogen 48 MG/DL Creatinine 2.43 MG/DL Estimat Glomerular Filtration 29 ML/MIN Rate Random Glucose 136 MG/DL Calcium Level 8.2 MG/DL Total Bilirubin 14.8 MG/DL Aspartate Amino Transf 178 U/L (AST/SGOT) Alanine Aminotransferase 39 U/L (ALT/SGPT) Alkaline Phosphatase 323 U/L Total Protein 7.1 GM/DL Albumin 2.1 GM/DL Culture Results Microbiology Date/Time Procedure Status Source Growth 04/20/17 20:15 Aerobic Blood Culture - Preliminary Resulted Blood Peripheral NO GROWTH IN 2 DAYS 04/20/17 20:15 Anaerobic Blood Culture - Preliminary Resulted Blood Peripheral NO GROWTH IN 2 DAYS 04/20/17 20:20 Aerobic Blood Culture - Preliminary Resulted Blood Peripheral NO GROWTH IN 2 DAYS 04/20/17 20:20 Anaerobic Blood Culture - Preliminary Resulted Blood Peripheral NO GROWTH IN 2 DAYS 04/21/17 20:15 Aerobic Blood Culture - Preliminary Resulted Blood Line NO GROWTH IN 1 DAY 04/21/17 20:15 Anaerobic Blood Culture - Preliminary Resulted Blood Line NO GROWTH IN 1 DAY 04/21/17 20:15 Aerobic Blood Culture - Preliminary Resulted Blood Line NO GROWTH IN 1 DAY 04/21/17 20:15 Anaerobic Blood Culture - Preliminary Resulted Blood Line NO GROWTH IN 1 DAY Administered Medications Medications (Trade) Dose Ordered Sig/Gary Route PRN Reason Start Time Stop Time Status Last Admin Dose Admin Sodium Chloride (NS Flush) 2 ml BID IV FLUSH 04/19/17 21:00 04/21/17 21:08 Ondansetron HCl (Zofran Inj) 4 mg Q6H PRN IVP NAUSEA OR VOMITING 04/19/17 17:15 04/19/17 18:05 Enoxaparin Sodium (Lovenox Inj) 40 mg Q24H SQ 04/19/17 18:00 04/21/17 20:09 Senna/Docusate Sodium (Aniya-Colace) 1 tab BID PO 04/19/17 21:00 04/21/17 10:00 Sennosides (Senokot) 17.2 mg Q12H PRN PO MODERATE - SEVERE CONSTIPATION 04/19/17 17:15 04/20/17 18:59 Albumin Human (Albumin 25% Inj) 25 gm Q12H IV 04/19/17 20:00 7/26/17 09:12 Phytonadione 10 mg 10 mg DAILY SQ 04/20/17 09:00 04/22/17 09:12 Ceftriaxone Sodium/Sodium Chloride (Rocephin Inj/NS Inj) 100 ml @ 200 mls/hr Q24H IV 04/19/17 22:00 04/21/17 23:24 Morphine Sulfate 15 mg 15 mg Q3H PRN PO PAIN SCALE 1 TO 4 04/20/17 13:00 04/21/17 10:01 Sodium Chloride (NS 1000 ml Inj) 1,000 ml @ 125 mls/hr Q8H IV 04/20/17 13:15 04/22/17 05:45 Megestrol Acetate (Megace Liq) 400 mg DAILY PO 04/20/17 16:00 04/22/17 09:12 Objective Remarks GENERAL: Middle aged male resting in bed. SKIN: Warm and dry. HEAD: Normocephalic. EYES: No injection or drainage. NECK: Supple, trachea midline. CARDIOVASCULAR: +S1/S2, tachy RESPIRATORY: Breath sounds equal bilaterally. No accessory muscle use. GASTROINTESTINAL: Abdomen tight with ascites, distended. EXTREMITIES: No cyanosis, lower extremities with edema NEUROLOGICAL: awake and alert, normal speech. Assessment/Plan Problem List: (1) Metastatic colon cancer to liver Status: Acute Plan: 04/22: will give 2 unit pRBC today. plan for follow up in the clinic on Thursday for chemotherapy. not requiring very much pain medication. will reduce to Oxycodone 5mg PO PRN -- History of colon cancer with liver metastasis diagnosed two years ago in 2014. --initially was treated with Xelox, then Avastin and FOLFOX chemotherapy with an excellent response. --elected to stop further chemotherapy in November due to financial reasons. --now has extensive liver metastasis and the cancer has now progressed into both lungs. -- have strongly recommended Hospice for best supportive care. I do not think the patient would be able to tolerate further chemotherapy due to the extensive metastasis as well as liver failure. --recommended Hospice for best supportive care. However, the patient and his family adamantly declined. (2) Jaundice Status: Acute Plan: --has severe jaundice due to extensive liver metastasis. --patient does not have any dilated bile duct so the patient does not have any obstruction of the bile ducts. This is all hepatocellular disease from extensive colon metastasis. Assessment 47y/o male with metastatic colon cancer. h/o Morbid obesity. Depression. Diabetes mellitus. Colon cancer with liver metastasis. Attending Statement Pain is under control Change morphine to Percocet Tx blood Okay to discharge today Follow up on Thursday The exam, history, and the medical decision-making described in the above note were completed with the assistance of the mid-level provider. I reviewed and agree with the findings presented. I attest that I had a [id number] encounter with the patient on the same day, and personally performed and documented my assessment and findings in the medical record. Didi aYnes Apr 22, 2017 13:07 Madeleine Horn MD Apr 23, 2017 00:13
--- NOTE | 2017-04-22 13:38 | PD.CONS ---
History of Present Illness Service Infectious disease Consult Requested By Dr. Torres Reason for Consult Evaluate patient for possible sepsis Primary Care Physician Moshe Smith, III Diagnoses: History of Present Illness Patient seen and examined. Records reviewed. Patient is a 47-year-old male, presented to the hospital for further evaluation of worsening abdominal pain and back pain. He was diagnosed to have colon cancer with extensive liver metastases back in the fall of 2014. He had near obstructive mass in the descending colon, and he was given chemotherapy with good response. However the treatment was stopped due to neuropathy. During that time his follow-up imaging studies did not show any evidence of disease and his CEA was normal. It was decided to observe him. Patient subsequently moved to [place] last summer, and the patient was referred to the oncology here at [facility]. Repeat imaging studies at that time showed recurrent liver metastases and his CEA and up again. Patient was started on chemotherapy again , with good response. Patient however since spring time has canceled all his appointments. He was last seen November 2016. Patient started having abdominal pain, and back pain, and his symptoms were worsening so he presented to the hospital for further evaluation and treatment. He had been to [facility], and he was told that he had evidence of tumor in the lungs and the liver. He was discharged on pain medication, and was told to follow-up with his oncologist. Patient presented here at [facility] for worsening pain, and his imaging study showed progression of his tumor in the cecum as well as liver metastases. His LFTs were all markedly elevated with evidence of liver failure. His creatinine was also elevated. There was some suggestion of SIRS, and the patient was started on Rocephin. Patient has not been febrile. His pain is under control. He denies any respiratory complaint as far as congestion or cough. Has not had any nausea or vomiting. He was initially constipated, but was given some medication and his been having bowel movements. He denies any urinary complaints. Infectious disease consultation has been requested for possible sepsis. Review of Systems Constitutional: COMPLAINS OF: Weight gain, DENIES: Fever, Chills Eyes: DENIES: Eye pain Ears, nose, mouth, throat: DENIES: Nasal discharge, Oral lesions, Throat pain, Ear Pain, Sinus Pain Respiratory: DENIES: Cough, Shortness of breath Cardiovascular: COMPLAINS OF: Dyspnea on Exertion, Lower Extremity Edema, DENIES: Chest pain, Palpitations Gastrointestinal: COMPLAINS OF: Abdominal pain, Constipation, DENIES: Diarrhea , Nausea, Vomiting, Difficulty Swallowing Genitourinary: DENIES: Urgency, Dysuria Musculoskeletal: COMPLAINS OF: Back pain, DENIES: Neck pain Integumentary: DENIES: Pruritus, Rash Neurologic: DENIES: Headache, Localized weakness Psychiatric: DENIES: Confusion, Hallucinations Past Family Social History Allergies: Coded Allergies: No Known Allergies (Unverified , 04/19/17) Past Medical History Morbid obesity Diabetes Depression Colon cancer with metastases Past Surgical History Previous colonoscopy and colon biopsy Dbzavf-s-Ckeh placement Active Ordered Medications Senokot Vit K Pericolace MOM Morphine Zofran Lactulose Insulin Megace Albumin Dulcolax Rocephin Lovenox Family History Family history of stomach cancer Social History No smoking Alcohol abuse No illicit drug use Physical Exam Vital Signs Vital Signs Date Time Temp Pulse Resp B/P Pulse Ox O2 Delivery O2 Flow Rate FiO2 04/22/17 08:00 97.7 109 16 124/62 97 04/22/17 04:00 97.0 108 17 130/68 98 04/22/17 00:00 96.4 107 18 123/67 94 04/21/17 20:00 97.0 114 17 120/69 95 04/21/17 16:16 96.0 109 20 131/77 95 Physical Exam GENERAL: Patient is an obese, well-developed male, awake and alert, not in respiratory distress. SKIN: Warm and dry. No generalized rash, no ecchymoses and no evidence of embolic lesions. Has jaundice HEAD: Atraumatic. Normocephalic. No temporal wasting, or tenderness. EYES: [place] conjunctiva. No petechia or hemorrhage. Pupils equal, round and reactive to light. Extraocular movements full and intact. Has scleral icterus. No conjunctival injection or drainage. EARS, NOSE AND THROAT: Nose without bleeding or purulent nasal discharge. No sinus tenderness. Mucous membranes pink and moist. No oral lesions noted. No exudate. No oral thrush. NECK: Trachea midline. Supple and not tender, no meningeal signs CARDIOVASCULAR: Regular rate and rhythm. No murmurs, rubs or gallops heard RESPIRATORY: Clear to auscultation. Breath sounds equal bilaterally. No rales , wheezing or rhonchi. Decreased BS at bases. Port R upper chest with no evidence of infection ABDOMEN: Globular, distended, bowel sounds present and normoactive, not tender. Liver edge firm, not tender. No guarding. No rebound. EXTREMITIES: No clubbing, cyanosis, joint effusion, has good ROM. Has bilateral pitting edema both LE, RLE larger compared to LLE. No calf tenderness. Well perfused and warm. NEUROLOGICAL: Awake and alert. Cranial nerves grossly intact. Motor grossly within normal limits. PSYCHIATRIC: Normal affect, calm and cooperative. LINE: Port with no evidence of infection Laboratory Laboratory Tests Test 04/22/17 04/22/17 05:53 05:55 Lactic Acid Level 2.9 White Blood Count 11.8 Red Blood Count 2.55 Hemoglobin 8.0 Hematocrit 25.3 Mean Corpuscular Volume 99.0 Mean Corpuscular Hemoglobin 31.4 Mean Corpuscular Hemoglobin 31.7 Concent Red Cell Distribution Width 20.9 Platelet Count 249 Mean Platelet Volume 6.8 Neutrophils (%) (Auto) 80.2 Lymphocytes (%) (Auto) 6.9 Monocytes (%) (Auto) 11.6 Eosinophils (%) (Auto) 0.9 Basophils (%) (Auto) 0.4 Neutrophils # (Auto) 9.4 Lymphocytes # (Auto) 0.8 Monocytes # (Auto) 1.4 Eosinophils # (Auto) 0.1 Basophils # (Auto) 0.1 CBC Comment AUTO DIFF Differential Total Cells 100 Counted Neutrophils % (Manual) 71 Band Neutrophils % 15 Lymphocytes % 3 Monocytes % 8 Neutrophils # (Manual) 10.5 Metamyelocytes 2 Promyelocytes 1 Differential Comment FINAL DIFF MANUAL Platelet Estimate NORMAL Platelet Morphology Comment NORMAL Prothrombin Time 14.2 Prothromb Time International 1.3 Ratio Activated Partial 37.0 Thromboplast Time Sodium Level 132 Potassium Level 3.9 Chloride Level 101 Carbon Dioxide Level 15.9 Anion Gap 15 Blood Urea Nitrogen 48 Creatinine 2.43 Estimat Glomerular Filtration 29 Rate Random Glucose 136 Calcium Level 8.2 Total Bilirubin 14.8 Aspartate Amino Transf 178 (AST/SGOT) Alanine Aminotransferase 39 (ALT/SGPT) Alkaline Phosphatase 323 Total Protein 7.1 Albumin 2.1 Date/Time Procedure Status Source Growth 04/21/17 20:15 Aerobic Blood Culture - Preliminary Resulted Blood Line NO GROWTH IN 1 DAY 04/21/17 20:15 Anaerobic Blood Culture - Preliminary Resulted Blood Line NO GROWTH IN 1 DAY Result Diagram: 04/22/17 0555 04/22/17 0555 Imaging RADIOLOGY STUDIES/FILMS REVIEWED Last Impressions Chest X-Ray 04/20/17 0000 Signed Impressions: Service Date/Time: Thursday, April 20, 2017 16:52 - CONCLUSION: Low lung volumes. No infiltrates or effusions. Estevan Vyas Jr., MD Lower Extremity Ultrasound 04/19/17 1703 Signed Impressions: Service Date/Time: Wednesday, April 19, 2017 18:50 - CONCLUSION: No DVT right leg. Sea Solano MD Abdomen/Pelvis CT 04/19/17 1017 Signed Impressions: Service Date/Time: Wednesday, April 19, 2017 12:54 - CONCLUSION: 1. Malignant appearing cecal mass with metastatic disease to the liver and lungs. 2. The mass has eroded through the bowel wall with involvement of the surrounding mesentery and possibly small metastatic lymph nodes locally at the site with slight ascites and early peritoneal carcinomatosis is not excluded KKhanh Nunn MD Assessment and Plan Assessment and Plan IMPRESSION Colon CA, with metastatic disease, has liver mets, enlarging cecal mass, and possibly peritoneal carcinomatosis Clinically no evidence of sepsis Tachycardia likely multifactorial due to his pain, liver mets, anasarca RECOMMENDATION I would favor stopping his Abx Per oncology, pain control then D/C and follow-up as outpatient and chemo being considered Monitor for S/Ss of new infection especially fever, chills I will be available prn Please reconsult if with any new ID issue or question Discussed Condition With Explained recommendation to patient Krista Ferrer MD Apr 22, 2017 13:38
--- NOTE | 2017-04-22 15:52 | HHI.PR ---
Subjective Remarks denies abdominal pain, nausea or vomiting denies fevers/chills still tachycardic Objective Vitals Vital Signs Date Time Temp Pulse Resp B/P Pulse Ox O2 Delivery O2 Flow Rate FiO2 04/22/17 12:00 97.6 107 14 123/70 94 04/22/17 08:00 97.7 109 16 124/62 97 04/22/17 04:00 97.0 108 17 130/68 98 04/22/17 00:00 96.4 107 18 123/67 94 04/21/17 20:00 97.0 114 17 120/69 95 04/21/17 16:16 96.0 109 20 131/77 95 I/O 04/21/17 04/21/17 04/21/17 04/22/17 04/22/17 04/22/17 07:00 15:00 23:00 07:00 15:00 23:00 Intake Total 630 ml 2135 ml 1333 ml Balance 630 ml 2135 ml 1333 ml Intake Oral 480 ml 304 ml IV Total 150 ml 2135 ml 1029 ml # Voids 1 2 4 # Bowel Movements 1 0 Result Diagram: 04/22/17 0555 04/22/17 0555 Imaging Last Impressions Chest X-Ray 04/20/17 0000 Signed Impressions: Service Date/Time: Thursday, April 20, 2017 16:52 - CONCLUSION: Low lung volumes. No infiltrates or effusions. Estevan Vyas Jr., MD Lower Extremity Ultrasound 04/19/17 1703 Signed Impressions: Service Date/Time: Wednesday, April 19, 2017 18:50 - CONCLUSION: No DVT right leg. Sea Solano MD Abdomen/Pelvis CT 04/19/17 1017 Signed Impressions: Service Date/Time: Wednesday, April 19, 2017 12:54 - CONCLUSION: 1. Malignant appearing cecal mass with metastatic disease to the liver and lungs. 2. The mass has eroded through the bowel wall with involvement of the surrounding mesentery and possibly small metastatic lymph nodes locally at the site with slight ascites and early peritoneal carcinomatosis is not excluded Elton Nunn MD Objective Remarks GENERAL: This is a mal-nourished, well-developed patient, in no apparent distress. SKIN: No rashes, ecchymoses or lesions. Cool and dry. (+) Jaundice HEAD: Atraumatic. Normocephalic. No temporal or scalp tenderness. EYES: Pupils equal round and reactive. Extraocular motions intact. No injection or drainage. (+) icteric sclerae ENT: Nose without bleeding, purulent drainage or septal hematoma. Throat without erythema, tonsillar hypertrophy or exudate. Uvula midline. Airway patent. NECK: Trachea midline. No JVD or lymphadenopathy. Supple, nontender, no meningeal signs. CARDIOVASCULAR: Regular rate and rhythm without murmurs, gallops, or rubs. RESPIRATORY: Clear to auscultation. Breath sounds equal bilaterally. No wheezes , rales, or rhonchi. GASTROINTESTINAL: Abdomen soft, effusion tender to palpation, tended. No hepato- splenomegaly, or palpable masses. No guarding. (+) ascites MUSCULOSKELETAL: Extremities without clubbing, cyanosis, there is edema in the right lower extremity. No joint tenderness, effusion, or edema noted. No calf tenderness. Negative Homans sign bilaterally. NEUROLOGICAL: Awake and alert. Cranial nerves II through XII intact. Motor and sensory grossly within normal limits. Five out of 5 muscle strength in all muscle groups. Normal speech. Procedures none Medications and IVs Current Medications Medications (Trade) Dose Ordered Sig/Gary Route Start Time Stop Time Status Last Admin (NS Flush) 2 ml UNSCH PRN IV FLUSH 04/19/17 17:15 (NS Flush) 2 ml BID IV FLUSH 04/19/17 21:00 04/21/17 21:08 (Tylenol) 650 mg Q4H PRN PO 04/19/17 17:15 (Zofran Inj) 4 mg Q6H PRN IVP 04/19/17 17:15 04/19/17 18:05 (Lovenox Inj) 40 mg Q24H SQ 04/19/17 18:00 04/21/17 20:09 (Aniya-Colace) 1 tab BID PO 04/19/17 21:00 04/21/17 10:00 (Milk Of Magnesia Liq) 30 ml Q12H PRN PO 04/19/17 17:15 (Senokot) 17.2 mg Q12H PRN PO 04/19/17 17:15 04/20/17 18:59 (Dulcolax Supp) 10 mg DAILY PRN RECTAL 04/19/17 17:15 (Albumin 25% Inj) 25 gm Q12H IV 04/19/17 20:00 04/22/17 09:12 Phytonadione 10 mg 10 mg DAILY SQ 04/20/17 09:00 04/22/17 09:12 (NS 1000 ml Inj) 1,000 ml @ 125 mls/hr Q8H IV 04/20/17 13:15 04/22/17 05:45 (Megace Liq) 400 mg DAILY PO 04/20/17 16:00 04/22/17 09:12 (Lactulose Liq) 30 ml Q12HR PRN PO 04/21/17 21:00 (D50w (Vial) Inj) 50 ml UNSCH PRN IV 04/21/17 22:15 Glucagon 1 mg 1 mg UNSCH PRN OTHER 04/21/17 22:15 (NS 250 ml Inj) 250 ml @ 15 mls/hr ONCE ONCE IV 04/22/17 08:30 04/23/17 01:09 (Roxicodone) 5 mg Q4H PRN PO 04/22/17 14:00 Urinary Catheter: No Vascular Central Line Catheter: No A/P Problem List: (1) Metastatic colon cancer to liver ICD Code: C18.9 Status: Acute (2) Transaminitis ICD Code: R74.0 Status: Acute (3) Elevated alkaline phosphatase level ICD Code: R74.8 Status: Acute (4) NICOLÁS (acute kidney injury) ICD Code: N17.9 Status: Acute (5) Hyponatremia ICD Code: E87.1 Status: Acute (6) Diabetes ICD Code: E11.9 Status: Chronic (7) Anemia ICD Code: D64.9 Status: Acute (8) Severe protein-calorie malnutrition ICD Code: E43 Status: Acute (9) Coagulopathy ICD Code: D68.9 Status: Acute (10) Edema of right lower extremity ICD Code: R60.0 Status: Acute (11) Elevated lactic acid level ICD Code: R79.89 Status: Acute (12) Abdominal pain ICD Code: R10.9 Status: Acute (13) Jaundice ICD Code: R17 Status: Acute (14) SIRS (systemic inflammatory response syndrome) ICD Code: R65.10 Status: Acute Assessment and Plan (1) Metastatic colon cancer to liver Plan: Patient was admitted to the general medical floor. Started on IV morphine for pain control. Dr Horn has been consulted and he recommended hospice care given that metastatic disease is pretty advanced given her failure. However upon insistence from family and patient, chemotherapy will be tried again as an outpatient. (2) Transaminitis Plan: Transaminitis with elevated alkaline phosphatase and coagulopathy likely secondary to liver failure due to metastatic liver disease. transaminases are slowly trending down. ALT now within normal range. ALk phos trending down. Continue to monitor liver function tests. ammonia level is normal (3) Elevated alkaline phosphatase level Plan: As above (4) NICOLÁS (acute kidney injury) Plan: Suspect secondary to prerenal azotemia map patient also with decreased oral intake. Possibly decreased effective intravascular volume. Patient started an IV albumin and IV fluids Continue to monitor BUN/creatinine and creatinine, strict I's and O's, avoid nephrotoxins. Creatinine is trending up and acute kidney injury is worsening. Npehrology consulted, appreciate recommendations. Suspected ATN. (5) Hyponatremia Plan: Hyponatremia seems to be slightly worse. We'll continue to monitor BMP. We'll check urine and serum osmolality. (6) Diabetes Plan: hemoglobin a1c 5.1. Diabetes is controlled. place on SSI with insulin Novolog and monitor accuchecks. (7) Anemia Plan: Normal MCV anemia. Studies consistent with anemia of chronic disease likely secondary to malignancy. Continue to monitor hemoglobin which has trended down likely after IV fluid administration. 04/21 hemoglobin stable. 04/22 Bein transfused 1 unit of PRBC as per oncology recommendations. (8) Severe protein-calorie malnutrition Plan: Dietitian consulted and recommendations appreciated. Continue Megace for appetite stimulant. Will increase diet to 2200 ADA diet and start a multivitamin daily. (9) Coagulopathy Plan: Likely secondary to liver failure secondary to liver metastasis. Continue to monitor PT, PTT, continue vitamin K. (10) Edema of right lower extremity DVT ruled out with a LLE doppler us. (11) Elevated lactic acid level Plan: Likely elevated secondary to dehydration and cancer. Continue IV fluids. Continue to monitor lactic acid. (12) Abdominal pain Plan: Likely secondary to metastatic colon cancer. However cannot rule out SBP given that there is increased lactic acid and pain. 04/20 Continue IV Rocephin, amount of ascites seen on CT abdomen seems to be not enough for abdominal paracentesis. (13) Jaundice Plan: due to liver failure due to metastasis. Continue to monitor liver function tests. (14) SIRS (systemic inflammatory response syndrome) Plan: Patient meets SIRS criteria - tachycardia more than 16% bands. Initially started on IV rocephin since patient came with abdominal pain. 04/22 Id consulted - no signs of sepsis - recommended discontinuation of antibiotics. Assessment and Plan DVT prophylaxis: SCDs, Lovenox subcutaneously. Discharge Planning Continue to monitor in the medical floor. Discharge pending clinical improvement and improvement of renal function. Problem Qualifiers (1) Diabetes: Qualified Code: E11.9 - Type 2 diabetes mellitus without complication, with long-term current use of insulin (2) Anemia: Qualified Code: D64.9 - Anemia, unspecified type (3) Abdominal pain: Qualified Code: R10.84 - Generalized abdominal pain Audi Negrete MD Apr 22, 2017 15:52
[2017-04-22 15:55] VITALS: BP 118/70; PULSE 104; RESP 18; TEMP 96.4; O2SAT 98
--- NOTE | 2017-04-22 18:28 | HHI.NPPN ---
Subjective Renal Failure: Acute History of Present Illness 47-year-old male with past medical history of metastatic colon cancer diagnosed in 2014, history of diabetes mellitus, came to the hospital with complaint of abdominal pain and back pain. I was called to see the patient because of elevated BUN and creatinine. The patient denies any previous history of renal disease. When he came in here his creatinine was 1.4 and has gone to 1.8. Previously he has creatinine of 0.9-1.0 this was in September of this year. Additional Remarks Patient is alert, now started eating better, no SOB. Review of Systems General Constitutional: Fatigue Gastrointestinal Gastrointestinal: Abdominal Pain Objective Data Data 04/21/17 04/22/17 19:00 07:00 Intake Total 630 ml 2135 ml Balance 630 ml 2135 ml Intake Oral 480 ml IV Total 150 ml 2135 ml # Voids 2 # Bowel Movements 1 Vital Signs Date Time Temp Pulse Resp B/P Pulse Ox O2 Delivery O2 Flow Rate FiO2 04/22/17 15:55 96.4 104 18 118/70 98 04/22/17 12:00 97.6 107 14 123/70 94 04/22/17 08:00 97.7 109 16 124/62 97 04/22/17 04:00 97.0 108 17 130/68 98 04/22/17 00:00 96.4 107 18 123/67 94 04/21/17 20:00 97.0 114 17 120/69 95 -: 04/22/17 0555 04/22/17 0555 Microbiology 04/21/17 Aerobic Blood Culture - Preliminary, Resulted NO GROWTH IN 1 DAY 04/21/17 Anaerobic Blood Culture - Preliminary, Resulted NO GROWTH IN 1 DAY 04/21/17 Aerobic Blood Culture - Preliminary, Resulted NO GROWTH IN 1 DAY 04/21/17 Anaerobic Blood Culture - Preliminary, Resulted NO GROWTH IN 1 DAY Physical Exam General Appearance: No Acute Distress, Comfortable Throat Throat Exam: Oral Mucosa [place] & Moist Pulmonary Resp Exam: Breath Sounds Equal, No Distress, Rhonchi, Decreased Bases Cardiology CV Exam: Regular, Normal Sinus Rhythm Gastrointestinal/Abdomen GI Exam: Soft, Non-Tender, Bowel Sounds Present, Distended Extremeties Extremities Exam: Moderate Edema, Pitting Edema Neurologic Neuro Exam: Alert, Awake, Oriented Psychiatric Psych Exam: Appropriate Responses Assessment/Plan Assessment Summary: NICOLÁS/Acute Renal Failure Problem List: (1) Elevated lactic acid level (2) Diabetes (3) Liver failure (4) Metastatic colon cancer to liver (5) Jaundice (6) NICOLÁS (acute kidney injury) Plan Patient has been non oliguric. Creatinine still increasing. Urine Na. low and osmolality not very high. Most likely has ATN causing NICOLÁS, unlikely pre renal. Encourage oral intake. Hco3 dropping , add NaHco3 in IVF. Problem Qualifiers (1) Diabetes: Qualified Code: E11.9 - Type 2 diabetes mellitus without complication, with long-term current use of insulin (2) Liver failure: Qualified Code: K72.00 - Subacute liver failure without hepatic coma Ancelmo Zarate MD Apr 22, 2017 18:28
[2017-04-22 18:55] VITALS: BP 128/76; PULSE 108; TEMP 96.3; O2SAT 99
[2017-04-22] MEDS: ENOXAPARIN SODIUM 40 MG/0.4 ML SYRINGE SQ SCH (18:56)
[2017-04-22] MEDS: SODIUM BICARBONATE 8.4% INJ 75 MEQ in SODIUM CHLOR 0.45% 1000 ML INJ 1,000 ML IV SCH (20:27)
[2017-04-23] VITALS: BP 131/72; PULSE 106; RESP 17; TEMP 97.8; O2SAT 96
[2017-04-23 04:00] VITALS: BP 138/71; PULSE 107; RESP 18; TEMP 96.1; O2SAT 95
[2017-04-23] MEDS: INSULIN ASPART SUPPLEMENTAL SCALE SQ SCH ×4 (05:37→22:33)
[2017-04-23] MEDS: SODIUM BICARBONATE 8.4% INJ 75 MEQ in SODIUM CHLOR 0.45% 1000 ML INJ 1,000 ML IV SCH ×2 (07:18→13:36)
[2017-04-23 08:00] VITALS: BP 131/75; PULSE 90; RESP 18; TEMP 97; O2SAT 95
[2017-04-23] MEDS: ALBUMIN HUMAN 25% 25 GM/100 ML BAGP IV SCH ×2 (08:55→22:24)
[2017-04-23] MEDS: PHYTONADIONE 10 MG/ML VIAL SQ SCH (08:55)
[2017-04-23] MEDS: MEGESTROL ACETATE SUSP 400 MG/10 ML CUP PO SCH (08:55)
[2017-04-23] MEDS: DOCUSATE SODIUM 50 MG/SENNA 8.6 MG TAB PO SCH ×2 (08:56→22:23)
[2017-04-23] MEDS: SODIUM CHLORIDE 0.9% FLUSH 10 ML FLUSH IV FLUSH SCH ×2 (09:08→22:24)
[2017-04-23 12:00] VITALS: BP 115/77; PULSE 99; RESP 18; TEMP 98.2; O2SAT 98
[2017-04-23 12:21] LABS: AUTOMATED NEUTROPHIL # 10.6 TH/MM3 (1.8-7.7); BASOPHIL # 0.1 TH/MM3 (0-0.2); BASOPHIL % 0.5 % (0.0-2.0); EOSINOPHIL # 0.2 TH/MM3 (0-0.4); EOSINOPHIL % 1.3 % (0.0-4.0); HEMATOCRIT 29.1 % (39.0-51.0); LYMPH % 6.3 % (9.0-44.0); LYMPHOCYTE # 0.8 TH/MM3 (1.0-4.8); MEAN CELL VOLUME 95.2 FL (80.0-100.0); MEAN CORPUSCULAR HGB CONC 32.5 % (32.0-36.0); MONO % 11.2 % (0.0-8.0); NEUT % 80.7 % (16.0-70.0); PLATELET COUNT 221 TH/MM3 (150-450); RED BLOOD COUNT 3.05 MIL/MM3 (4.50-5.90); RED CELL DISTRIBUTION WIDTH 22.1 % (11.6-17.2); WHITE BLOOD COUNT 13.2 TH/MM3 (4.0-11.0)
[2017-04-23 12:24] LABS: HEMO FLAGS AUTO DIFF
[2017-04-23 12:50] LABS: ALT (GPT) 28 U/L (12-78); ANION GAP 17 MEQ/L (5-15); AST (GOT) 128 U/L (15-37); BICARBONATE 16.2 MEQ/L (21.0-32.0); BLOOD UREA NITROGEN 54 MG/DL (7-18); CHLORIDE 100 MEQ/L (98-107); GLOMERULAR FILTRATION RATE 28 ML/MIN (>89); POTASSIUM 3.6 MEQ/L (3.5-5.1); SODIUM (NA) 133 MEQ/L (136-145)
[2017-04-23 12:57] LABS: ALKALINE PHOSPHATASE 275 U/L (45-117); TOTAL BILIRUBIN ADULT 17.4 MG/DL (0.2-1.0)
[2017-04-23 12:58] LABS: BANDS 2 % (0-6); EOSINOPHILS 1 % (0-4); METAMYELOCYTES 1 % (0-1); MYELOCYTES 1 % (0-0); NEUTROPHIL # MANUAL DIFF 11.6 TH/MM3 (1.8-7.7); PLATELET ESTIMATE SMEAR NORMAL (NORMAL); PLATELET MORPHOLOGY NORMAL (NORMAL); POLYS (SEG NEUTROPHILS) 84 % (16-70); SCAN/DIFF FINAL DIFF MANUAL; WBC DIFF SAMPLE 100
--- NOTE | 2017-04-23 14:01 | PD.ONC.PN ---
Subjective Subjective Remarks Afebrile overnight. Patient resting in room. States he has no pain. at bedside. Objective Data Date Time Temp Pulse Resp B/P Pulse Ox O2 Delivery O2 Flow Rate FiO2 04/23/17 12:00 98.2 99 18 115/77 98 04/23/17 08:00 97.0 90 18 131/75 95 04/23/17 04:00 96.1 107 18 138/71 95 04/23/17 01:46 18 04/23/17 00:00 97.8 106 17 131/72 96 04/22/17 18:55 96.3 108 128/76 99 04/22/17 15:55 96.4 104 18 118/70 98 04/23/17 04/23/17 04/23/17 06:59 14:59 22:59 Intake Total 900 ml Balance 900 ml Result Diagram: 04/23/17 1121 04/23/17 1121 Laboratory Results Laboratory Tests Test 04/22/17 04/23/17 14:06 11:21 Blood Type O POSITIVE White Blood Count 13.2 TH/MM3 Red Blood Count 3.05 MIL/MM3 Hemoglobin 9.5 GM/DL Hematocrit 29.1 % Mean Corpuscular Volume 95.2 FL Mean Corpuscular Hemoglobin 31.0 PG Mean Corpuscular Hemoglobin 32.5 % Concent Red Cell Distribution Width 22.1 % Platelet Count 221 TH/MM3 Mean Platelet Volume 6.9 FL Neutrophils (%) (Auto) 80.7 % Lymphocytes (%) (Auto) 6.3 % Monocytes (%) (Auto) 11.2 % Eosinophils (%) (Auto) 1.3 % Basophils (%) (Auto) 0.5 % Neutrophils # (Auto) 10.6 TH/MM3 Lymphocytes # (Auto) 0.8 TH/MM3 Monocytes # (Auto) 1.5 TH/MM3 Eosinophils # (Auto) 0.2 TH/MM3 Basophils # (Auto) 0.1 TH/MM3 CBC Comment AUTO DIFF Differential Total Cells 100 Counted Neutrophils % (Manual) 84 % Band Neutrophils % 2 % Lymphocytes % 6 % Monocytes % 5 % Eosinophils % 1 % Neutrophils # (Manual) 11.6 TH/MM3 Metamyelocytes 1 % Myelocytes 1 % Differential Comment FINAL DIFF MANUAL Platelet Estimate NORMAL Platelet Morphology Comment NORMAL Sodium Level 133 MEQ/L Potassium Level 3.6 MEQ/L Chloride Level 100 MEQ/L Carbon Dioxide Level 16.2 MEQ/L Anion Gap 17 MEQ/L Blood Urea Nitrogen 54 MG/DL Creatinine 2.48 MG/DL Estimat Glomerular Filtration 28 ML/MIN Rate Random Glucose 154 MG/DL Calcium Level 8.7 MG/DL Total Bilirubin 17.4 MG/DL Aspartate Amino Transf 128 U/L (AST/SGOT) Alanine Aminotransferase 28 U/L (ALT/SGPT) Alkaline Phosphatase 275 U/L Total Protein 7.1 GM/DL Albumin 2.5 GM/DL Culture Results Microbiology Date/Time Procedure Status Source Growth 04/20/17 20:15 Aerobic Blood Culture - Preliminary Resulted Blood Peripheral NO GROWTH IN 3 DAYS 04/20/17 20:15 Anaerobic Blood Culture - Preliminary Resulted Blood Peripheral NO GROWTH IN 3 DAYS 04/20/17 20:20 Aerobic Blood Culture - Preliminary Resulted Blood Peripheral NO GROWTH IN 3 DAYS 04/20/17 20:20 Anaerobic Blood Culture - Preliminary Resulted Blood Peripheral NO GROWTH IN 3 DAYS 04/21/17 20:15 Aerobic Blood Culture - Preliminary Resulted Blood Line NO GROWTH IN 2 DAYS 04/21/17 20:15 Anaerobic Blood Culture - Preliminary Resulted Blood Line NO GROWTH IN 2 DAYS 04/21/17 20:15 Aerobic Blood Culture - Preliminary Resulted Blood Line NO GROWTH IN 2 DAYS 04/21/17 20:15 Anaerobic Blood Culture - Preliminary Resulted Blood Line NO GROWTH IN 2 DAYS Administered Medications Medications (Trade) Dose Ordered Sig/[place] Route PRN Reason Start Time Stop Time Status Last Admin Dose Admin Sodium Chloride (NS Flush) 2 ml BID IV FLUSH 04/19/17 21:00 04/23/17 09:08 Ondansetron HCl (Zofran Inj) 4 mg Q6H PRN IVP NAUSEA OR VOMITING 04/19/17 17:15 04/19/17 18:05 Enoxaparin Sodium (Lovenox Inj) 40 mg Q24H SQ 04/19/17 18:00 04/22/17 18:56 Senna/Docusate Sodium (Aniya-Colace) 1 tab BID PO 04/19/17 21:00 04/23/17 08:56 Sennosides (Senokot) 17.2 mg Q12H PRN PO MODERATE - SEVERE CONSTIPATION 04/19/17 17:15 04/20/17 18:59 Albumin Human (Albumin 25% Inj) 25 gm Q12H IV 04/19/17 20:00 04/23/17 08:55 Phytonadione (Vitamin K Inj) 10 mg DAILY SQ 04/20/17 09:00 04/23/17 08:55 Megestrol Acetate (Megace Liq) 400 mg DAILY PO 04/20/17 16:00 04/23/17 08:55 Oxycodone HCl 5 mg 5 mg Q4H PRN PO pain 04/22/17 14:00 04/23/17 00:46 Sodium Bicarbonate/ Sodium Chloride (Sodium Bicarbonate 8.4% Inj/1/2 NS 1000 ml Inj) 1,075 ml @ 84 mls/hr [id number] IV 04/22/17 18:30 04/23/17 13:36 Objective Remarks GENERAL: Middle aged male sitting up in chair next to bed SKIN: Warm and dry. +jaundice HEAD: Normocephalic. EYES: No injection or drainage. NECK: Supple, trachea midline. CARDIOVASCULAR: +S1/S2, tachy RESPIRATORY: Breath sounds equal bilaterally. No accessory muscle use. GASTROINTESTINAL: Abdomen distended with ascites EXTREMITIES: No cyanosis, +BLE with 2+ edema NEUROLOGICAL: awake and alert, normal speech. Assessment/Plan Problem List: (1) Metastatic colon cancer to liver Status: Acute Plan: 04/23: patient's renal function is worsening. bilirubin rising. d/w patient and patient's declining health. they would be agreeable to speaking w/palliative care. will consult palliative care -- History of colon cancer with liver metastasis diagnosed two years ago in 2014. --initially was treated with Xelox, then Avastin and FOLFOX chemotherapy with an excellent response. --elected to stop further chemotherapy in November due to financial reasons. --now has extensive liver metastasis and the cancer has now progressed into both lungs. -- have strongly recommended Hospice for best supportive care. I do not think the patient would be able to tolerate further chemotherapy due to the extensive metastasis as well as liver failure. --recommended Hospice for best supportive care. However, the patient and his family adamantly declined. (2) Jaundice Status: Acute Plan: --has severe jaundice due to extensive liver metastasis. --patient does not have any dilated bile duct so the patient does not have any obstruction of the bile ducts. This is all hepatocellular disease from extensive colon metastasis. Assessment 47y/o male with metastatic colon cancer. h/o Morbid obesity. Depression. Diabetes mellitus. Colon cancer with liver metastasis. Attending Statement Pain Under control Patient has had hepato- renal syndrome Prognosis is poor Consult palliative care The exam, history, and the medical decision-making described in the above note were completed with the assistance of the mid-level provider. I reviewed and agree with the findings presented. I attest that I had a [id number] encounter with the patient on the same day, and personally performed and documented my assessment and findings in the medical record. Didi Yanes Apr 23, 2017 14:01 Madeleine Horn MD Apr 23, 2017 22:17
[2017-04-23 16:00] VITALS: BP 125/70; PULSE 92; RESP 18; TEMP 97.9; O2SAT 97
--- NOTE | 2017-04-23 16:46 | PD.CONS ---
Consult Service Palliative Care Consult Requested By Jerrell Primary Care Physician Moshe Smith III Reason for Consultation a. To assist with evaluation and management of symptoms including:pain , and dyspnea b. To assist medical decision maker(s) with: better understanding of current medical conditions; weighing benefits/burdens of medical treatment options; making medical treatment decisions. HPI History of Present Illness Patient is a 47-year-old male with a past medical history significant for colon cancer diagnosed in 2014. At that time he presented to [facility] and CAT scan showed multiple liver metastasis. Patient had a colonoscopy which showed near objective mass and descending colon. Patient was treated for his Xelox, had to be stopped due to peripheral neuropathy. At the time his CT scan shows no evidence of disease and his CEA was normal. Was kept on observation. Patient subsequently moved from [place] to [place] on 04/2016. Dr. Horn repeated a CT scan which shows recurrent liver metastasis and his CEA has gone up to 120. Patient was started on Avastin and FOLFOX chemotherapy. And had good response. Patient however cancel several appointments. It was documented that he stopped due to financial reason, but per oncology documentation patient was obtaining financial Joey so that he can continue with chemotherapy. He stated there were some misunderstanding and decided not to have further chemotherapy and was doing defined treatment, per oncology note. Patient however a month ago started having abdominal pain, worsening back pain, weight loss, jaundice and poor appetite. He also developed shortness of breath and was sent to [facility] a week ago. Patient reestablish with oncologist. He returned to the hospital on 04/19/2017 due to worsening symptoms symptoms as described above. Imaging: Imaging was repeated and CT of the abdomen and pelvis shows malignant-appearing cecal mass with metastatic disease to the liver and lungs. The mass has rebounded through the bowel wall with involvement of the surrounding mesentery and possibly small metastatic lymph nodes locally at the site with slight ascites and early peritoneal carcinomatosis cystoscopy with that. Lower extremity ultrasound was negative for DVT Chest x-ray showed low lung volumes no infiltrates. Patient was transferred to hospitalist care, and Dr. Horn was consulted. Oncology highly recommend hospice, for supportive care. The worries about his functional status and don't think patient could tolerate further chemotherapy due to extensive metastasis as well as liver failure. It is recommended by oncology to have patient's symptoms better controlled, and on discharge home considered to go to follow-up appointment with oncology to consider chemotherapy. Patient has insist on chemotherapy, and palliative care was consulted to review goals of care. Patient is Tajik-speaking only, so in hospital [employer] Translating Service was used throughout all of the patient encounter. Nurse Yumiko was able to help me set up Pt endorse back pain of a 5/10 when it acts up, but currently it is not painful. He denies any dyspnea currently. Pt's understanding seems pretty clear. He understands he has metastatic disease to the liver, and lungs. I reemphasize that chemo that is offered is palliative and not curative. It is made clear, that he will from his cancer, and I told him I am sorry not to have better news. I also told him if he was going to go with chemo, he may not tolerate it, and that quality of life due to complications. Told him given he liver failure, renal insufficiency, there is a chance undergoing chemo may not extend his life as intended, and he will end up with mostly complications from it. Offer hospices services again, and focus on quality of life. I ask him to repeat this information and he was able to and is able to comprehend. He states he understand the chemo likely will not work, but he wants to try. He says he leave everything in God's hands. He states if it does not work, he would reconsider hospice. Went into detail about code status, and reviewed DNR status especially with his cancer, and that life support does not reverse his cancer. He state he will discuss with his and meet again at 10:00am tomorrow. He is thankful for the visit, and welcomes the chaplian/pastoral care to pray. Function/Cognitive Trajectory past 1 month he has been losing wt, more abdominal pain, more fatigue, and short of breath when in pain. Review of Systems ROS Limitations: Clinical Condition Constitutional: COMPLAINS OF: Fatigue, Weight loss, Pain, Generalized weakness Cardiovascular: COMPLAINS OF: Dyspnea on Exertion Gastrointestinal: COMPLAINS OF: Constipation Musculoskeletal: COMPLAINS OF: Back pain Psychiatric: DENIES: Confusion, Depression Past Family Social History Coded Allergies: No Known Allergies (Unverified , 04/19/17) Past Medical History Metastatic colon cancer Diabetes mellitus Past Surgical History Right-sided chest port placement. Reported Medications Glipizide 10 Mg Tab 10 Mg PO BIDAC Take 30 minutes before a meal Lovastatin 40 Mg Tab 40 Mg PO DAILY Dilaudid (Hydromorphone HCl) 2 Mg Tab 2 Mg PO Q6H PRN Levemir Flextouch Pen Inj (Insulin Detemir) 300 unit/3 ML Pen 1 Units SQ Current Medications Medications (Trade) Dose Ordered Sig/Gary Route Start Time Stop Time Status Last Admin (NS Flush) 2 ml UNSCH PRN IV FLUSH 04/19/17 17:15 (NS Flush) 2 ml BID IV FLUSH 04/19/17 21:00 04/23/17 09:08 (Tylenol) 650 mg Q4H PRN PO 04/19/17 17:15 (Zofran Inj) 4 mg Q6H PRN IVP 04/19/17 17:15 04/19/17 18:05 (Lovenox Inj) 40 mg Q24H SQ 04/19/17 18:00 04/22/17 18:56 (Aniya-Colace) 1 tab BID PO 04/19/17 21:00 04/23/17 08:56 (Milk Of Magnesia Liq) 30 ml Q12H PRN PO 04/19/17 17:15 (Senokot) 17.2 mg Q12H PRN PO 04/19/17 17:15 04/20/17 18:59 (Dulcolax Supp) 10 mg DAILY PRN RECTAL 04/19/17 17:15 (Albumin 25% Inj) 25 gm Q12H IV 04/19/17 20:00 04/23/17 08:55 (Vitamin K Inj) 10 mg DAILY SQ 04/20/17 09:00 04/23/17 08:55 (Megace Liq) 400 mg DAILY PO 04/20/17 16:00 04/23/17 08:55 (Lactulose Liq) 30 ml Q12HR PRN PO 04/21/17 21:00 (D50w (Vial) Inj) 50 ml UNSCH PRN IV 04/21/17 22:15 (Glucagon Inj) 1 mg UNSCH PRN OTHER 04/21/17 22:15 Oxycodone HCl 5 mg 5 mg Q4H PRN PO 04/22/17 14:00 04/23/17 00:46 (Sodium Bicarbonate 8.4% Inj/1/2 NS 1000 ml Inj) 1,075 ml @ 84 mls/hr [id number] IV 04/22/17 18:30 04/23/17 13:36 Family History Patient states that her grandmother had stomach cancer. 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[employer], [employer] Living Will: Never completed Health Care Surrogate: Never completed Durable Power of Log Snaker: Never completed Physical Exam Vital Signs Date Time Temp Pulse Resp B/P Pulse Ox O2 Delivery O2 Flow Rate FiO2 04/23/17 12:00 98.2 99 18 115/77 98 04/23/17 08:00 97.0 90 18 131/75 95 04/23/17 04:00 96.1 107 18 138/71 95 04/23/17 01:46 18 04/23/17 00:00 97.8 106 17 131/72 96 04/22/17 18:55 96.3 108 128/76 99 04/22/17 04/23/17 18:59 06:59 Intake Total 1641 ml 1230 ml Balance 1641 ml 1230 ml Intake Oral 304 ml IV Total 1029 ml 900 ml Packed Cells 308 ml 330 ml # Voids 4 # Bowel Movements 0 Exam CONSTITUTIONAL/GENERAL: This frail middle age gentleman, sitting in bed, appears comfortable TUBES/LINES/DRAINS:nasal canula, piv, has infusaport SKIN: jaundice HEAD: Atraumatic. Normocephalic. EYES:There is scleral icterus. EOM intact, No injection or drainage. Fundi not examined. ENT: Hearing grossly normal. Nose without bleeding or purulent drainage. Throat without visible erythema, exudates, masses, or lesions. NECK: Trachea midline. Supple, nontender. No palpable thyroid enlargement or nodularity. CARDIOVASCULAR: Regular rate and rhythm without murmurs, gallops, or rubs. No JVD. Peripheral pulses symmetric. RESPIRATORY/CHEST: Symmetric, unlabored respirations. Clear to auscultation. Breath sounds equal bilaterally. No wheezes, rales, or rhonchi. GASTROINTESTINAL: Abdomen soft, distended, non tender GENITOURINARY: Without palpable bladder distension. Sanchez catheter in place. MUSCULOSKELETAL: Extremities without clubbing, cyanosis, 2+ edema LYMPHATICS: No palpable cervical or supraclavicular adenopathy. NEUROLOGICAL: Awake and alert. Motor and sensory grossly within normal limits. Follows commands. Cognitively sharp. Moves all extremities. PSYCHIATRIC: No obvious anxiety/depression. no apparent hallucinations or other psychotic thought process. Diagnostic Tests Laboratory Laboratory Tests Test 04/20/17 04/21/17 04/22/17 04/22/17 22:15 05:20 05:53 05:55 Prothrombin Time 14.6 SEC 14.4 SEC 14.2 SEC (9.8-11.6) (9.8-11.6) (9.8-11.6) Prothromb Time International 1.3 RATIO 1.3 RATIO 1.3 RATIO Ratio Activated Partial 45.6 SEC 44.8 SEC 37.0 SEC Thromboplast Time (24.3-30.1) (24.3-30.1) (24.3-30.1) Lactic Acid Level 3.3 mmol/L 3.2 mmol/L 2.9 mmol/L (0.4-2.0) (0.4-2.0) (0.4-2.0) White Blood Count 9.2 TH/MM3 11.8 TH/MM3 (4.0-11.0) (4.0-11.0) Red Blood Count 2.64 MIL/MM3 2.55 MIL/MM3 (4.50-5.90) (4.50-5.90) Hemoglobin 8.7 GM/DL 8.0 GM/DL (13.0-17.0) (13.0-17.0) Hematocrit 25.6 % 25.3 % (39.0-51.0) (39.0-51.0) Mean Corpuscular Volume 97.0 FL 99.0 FL (80.0-100.0) (80.0-100.0) Mean Corpuscular Hemoglobin 32.8 PG 31.4 PG (27.0-34.0) (27.0-34.0) Mean Corpuscular Hemoglobin 33.8 % 31.7 % Concent (32.0-36.0) (32.0-36.0) Red Cell Distribution Width 20.8 % 20.9 % (11.6-17.2) (11.6-17.2) Platelet Count 236 TH/MM3 249 TH/MM3 (150-450) (150-450) Mean Platelet Volume 6.9 FL 6.8 FL (7.0-11.0) (7.0-11.0) Neutrophils (%) (Auto) 81.3 % 80.2 % (16.0-70.0) (16.0-70.0) Lymphocytes (%) (Auto) 6.6 % 6.9 % (9.0-44.0) (9.0-44.0) Monocytes (%) (Auto) 10.5 % 11.6 % (0.0-8.0) (0.0-8.0) Eosinophils (%) (Auto) 0.9 % (0.0-4.0) 0.9 % (0.0-4.0) Basophils (%) (Auto) 0.7 % (0.0-2.0) 0.4 % (0.0-2.0) Neutrophils # (Auto) 7.5 TH/MM3 9.4 TH/MM3 (1.8-7.7) (1.8-7.7) Lymphocytes # (Auto) 0.6 TH/MM3 0.8 TH/MM3 (1.0-4.8) (1.0-4.8) Monocytes # (Auto) 1.0 TH/MM3 1.4 TH/MM3 (0-0.9) (0-0.9) Eosinophils # (Auto) 0.1 TH/MM3 0.1 TH/MM3 (0-0.4) (0-0.4) Basophils # (Auto) 0.1 TH/MM3 0.1 TH/MM3 (0-0.2) (0-0.2) CBC Comment AUTO DIFF AUTO DIFF Differential Total Cells 100 100 Counted Neutrophils % (Manual) 73 % (16-70) 71 % (16-70) Band Neutrophils % 15 % (0-6) 15 % (0-6) Lymphocytes % 5 % (9-44) 3 % (9-44) Monocytes % 7 % (0-8) 8 % (0-8) Neutrophils # (Manual) 8.1 TH/MM3 10.5 TH/MM3 (1.8-7.7) (1.8-7.7) Differential Comment FINAL DIFF FINAL DIFF MANUAL MANUAL Platelet Estimate NORMAL NORMAL (NORMAL) (NORMAL) Platelet Morphology Comment NORMAL NORMAL (NORMAL) (NORMAL) Sodium Level 131 MEQ/L 132 MEQ/L (136-145) (136-145) Potassium Level 4.0 MEQ/L 3.9 MEQ/L (3.5-5.1) (3.5-5.1) Chloride Level 99 MEQ/L 101 MEQ/L (98-107) (98-107) Carbon Dioxide Level 18.0 MEQ/L 15.9 MEQ/L (21.0-32.0) (21.0-32.0) Anion Gap 14 MEQ/L (5-15) 15 MEQ/L (5-15) Blood Urea Nitrogen 38 MG/DL (7-18) 48 MG/DL (7-18) Creatinine 2.11 MG/DL 2.43 MG/DL (0.60-1.30) (0.60-1.30) Estimat Glomerular Filtration 34 ML/MIN (>89) 29 ML/MIN (>89) Rate Random Glucose 111 MG/DL 136 MG/DL (74-106) (74-106) Calcium Level 8.4 MG/DL 8.2 MG/DL (8.5-10.1) (8.5-10.1) Phosphorus Level 4.2 MG/DL (2.5-4.9) Magnesium Level 2.5 MG/DL (1.5-2.5) Total Bilirubin 13.9 MG/DL 14.8 MG/DL (0.2-1.0) (0.2-1.0) Aspartate Amino Transf 327 U/L (15-37) 178 U/L (15-37) (AST/SGOT) Alanine Aminotransferase 56 U/L (12-78) 39 U/L (12-78) (ALT/SGPT) Alkaline Phosphatase 399 U/L 323 U/L (45-117) (45-117) Total Protein 7.2 GM/DL 7.1 GM/DL (6.4-8.2) (6.4-8.2) Albumin 1.9 GM/DL 2.1 GM/DL (3.4-5.0) (3.4-5.0) Carcinoembryonic Antigen 99063.7 NG/ML (0.2-5.0) Metamyelocytes 2 % (0-1) Promyelocytes 1 % (0-0) Test 04/22/17 04/22/17 04/23/17 12:38 14:06 11:21 Lactic Acid Level 2.6 mmol/L (0.4-2.0) Blood Type O POSITIVE O POSITIVE Antibody Screen NEGATIVE Crossmatch Leukocyte-Reduced Red Blood Cells Blood Bank Comment White Blood Count 13.2 TH/MM3 (4.0-11.0) Red Blood Count 3.05 MIL/MM3 (4.50-5.90) Hemoglobin 9.5 GM/DL (13.0-17.0) Hematocrit 29.1 % (39.0-51.0) Mean Corpuscular Volume 95.2 FL (80.0-100.0) Mean Corpuscular Hemoglobin 31.0 PG (27.0-34.0) Mean Corpuscular Hemoglobin 32.5 % Concent (32.0-36.0) Red Cell Distribution Width 22.1 % (11.6-17.2) Platelet Count 221 TH/MM3 (150-450) Mean Platelet Volume 6.9 FL (7.0-11.0) Neutrophils (%) (Auto) 80.7 % (16.0-70.0) Lymphocytes (%) (Auto) 6.3 % (9.0-44.0) Monocytes (%) (Auto) 11.2 % (0.0-8.0) Eosinophils (%) (Auto) 1.3 % (0.0-4.0) Basophils (%) (Auto) 0.5 % (0.0-2.0) Neutrophils # (Auto) 10.6 TH/MM3 (1.8-7.7) Lymphocytes # (Auto) 0.8 TH/MM3 (1.0-4.8) Monocytes # (Auto) 1.5 TH/MM3 (0-0.9) Eosinophils # (Auto) 0.2 TH/MM3 (0-0.4) Basophils # (Auto) 0.1 TH/MM3 (0-0.2) CBC Comment AUTO DIFF Differential Total Cells 100 Counted Neutrophils % (Manual) 84 % (16-70) Band Neutrophils % 2 % (0-6) Lymphocytes % 6 % (9-44) Monocytes % 5 % (0-8) Eosinophils % 1 % (0-4) Neutrophils # (Manual) 11.6 TH/MM3 (1.8-7.7) Metamyelocytes 1 % (0-1) Myelocytes 1 % (0-0) Differential Comment FINAL DIFF MANUAL Platelet Estimate NORMAL (NORMAL) Platelet Morphology Comment NORMAL (NORMAL) Sodium Level 133 MEQ/L (136-145) Potassium Level 3.6 MEQ/L (3.5-5.1) Chloride Level 100 MEQ/L (98-107) Carbon Dioxide Level 16.2 MEQ/L (21.0-32.0) Anion Gap 17 MEQ/L (5-15) Blood Urea Nitrogen 54 MG/DL (7-18) Creatinine 2.48 MG/DL (0.60-1.30) Estimat Glomerular Filtration 28 ML/MIN (>89) Rate Random Glucose 154 MG/DL (74-106) Calcium Level 8.7 MG/DL (8.5-10.1) Total Bilirubin 17.4 MG/DL (0.2-1.0) Aspartate Amino Transf 128 U/L (15-37) (AST/SGOT) Alanine Aminotransferase 28 U/L (12-78) (ALT/SGPT) Alkaline Phosphatase 275 U/L (45-117) Total Protein 7.1 GM/DL (6.4-8.2) Albumin 2.5 GM/DL (3.4-5.0) Result Diagram: 04/23/17 1121 04/23/17 1121 Microbiology Microbiology Date/Time Procedure Status Source Growth 04/20/17 20:15 Aerobic Blood Culture - Preliminary Resulted Blood Peripheral NO GROWTH IN 3 DAYS 04/20/17 20:15 Anaerobic Blood Culture - Preliminary Resulted Blood Peripheral NO GROWTH IN 3 DAYS 04/20/17 20:20 Aerobic Blood Culture - Preliminary Resulted Blood Peripheral NO GROWTH IN 3 DAYS 04/20/17 20:20 Anaerobic Blood Culture - Preliminary Resulted Blood Peripheral NO GROWTH IN 3 DAYS 04/21/17 20:15 Aerobic Blood Culture - Preliminary Resulted Blood Line NO GROWTH IN 2 DAYS 04/21/17 20:15 Anaerobic Blood Culture - Preliminary Resulted Blood Line NO GROWTH IN 2 DAYS 04/21/17 20:15 Aerobic Blood Culture - Preliminary Resulted Blood Line NO GROWTH IN 2 DAYS 04/21/17 20:15 Anaerobic Blood Culture - Preliminary Resulted Blood Line NO GROWTH IN 2 DAYS Imaging Last Impressions Chest X-Ray 04/20/17 0000 Signed Impressions: Service Date/Time: Thursday, April 20, 2017 16:52 - CONCLUSION: Low lung volumes. No infiltrates or effusions. Estevan Vyas Jr., MD Lower Extremity Ultrasound 04/19/17 1703 Signed Impressions: Service Date/Time: Wednesday, April 19, 2017 18:50 - CONCLUSION: No DVT right leg. Sea Solano MD Abdomen/Pelvis CT 04/19/17 1017 Signed Impressions: Service Date/Time: Wednesday, April 19, 2017 12:54 - CONCLUSION: 1. Malignant appearing cecal mass with metastatic disease to the liver and lungs. 2. The mass has eroded through the bowel wall with involvement of the surrounding mesentery and possibly small metastatic lymph nodes locally at the site with slight ascites and early peritoneal carcinomatosis is not excluded Elton Nunn MD Patient/Family Conference Present at Family Conference: patient Family Conference Time (mins): 50 Family Conference Location: Bedside Issues Discussed: * Palliative care role, purpose, approach * Additional medical, psychosocial, and spiritual history * Patients general health, functional status, and cognitive changes in the months leading up to the current hospitalization * Patient/family understanding of the current medical problems * Patient/family understanding of prognosis * Patients goals of care as best understood from advance directives and/or conversations and/or values * Current medical treatment options and benefits/burdens of those options * Likely scenarios comparing ongoing aggressive care with a transition to comfort measures only * Questions answered to the best of my ability * Palliative care contact information provided Assessment and Plan Disease Oriented Problem List: (1) Metastatic colon cancer to liver (2) NICOLÁS (acute kidney injury) (3) Transaminitis (4) Abdominal pain (5) Jaundice (6) Liver failure Symptom Scale: (1) Dyspnea 0-10 Scale: 0 Comment: gets dyspneic when painful (2) Pain 0-10 Scale: 5 Comment: 5 when it acts up, but currently 0. He has back pain and abdominal pain. Pertinent Non-Medical Issues Psychosocial: Spiritual: Legal: Ethical issues impacting care: Important Contacts Erica Villa [phone] Prognosis 47-year-old with metastatic colon cancer to the liver and lungs. Patient also has renal insufficiency and liver failure. Prognosis is poor and is hospice appropriate Code Status: Full Code Plan == Code: Full for, pending further discussion with and meeting with tomorrow. == Pain/ back and abdominal, currently denies abdominal pain and state oxycodone provides good relief. Dyspnea- he denies dyspnea at this current time. == goals of care Patient is Tajik-speaking only, so in hospital [facility] Translating Service was used throughout all of the patient encounter. Nurse Yumiko was able to help me set up Pt's understanding seems pretty clear. He understands he has metastatic disease to the liver, and lungs. I reemphasize that chemo that is offered is palliative and not curative. It is made clear, that he will from his cancer, and I told him I am sorry not to have better news. I also told him if he was going to go with chemo, he may not tolerate it, and that quality of life will be poor due to complications. Told him given he liver failure, renal insufficiency, there is a chance undergoing chemo may not extend his life as intended, and he will end up with mostly complications from it. Offer hospices services again, and focus on quality of life. I ask him to repeat this information and he was able to repeat and is able to comprehend. He states he understand the chemo likely will not work, but he wants to try. H antonino says he leave everything in God's hands. He states if it does not work, he would reconsider hospice. Goals of care seems pretty set. Went into detail about code status, and reviewed DNR status especially with his cancer, and that life support does not reverse his cancer. He state he will discuss with his and meet again at 10:00am tomorrow on advace directives. 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 == palliative care will continue to follow. Time Spent Total Floor Time (mins): 70 Face to Face Time (mins): 50 >50% Counseling/Coord of Care: Yes Thank you for the opportunity to participate in the care of Mr. Epperson. Attestation To help prompt me to consider important information that might be impacting today's encounter and assessment, information from prior notes written by myself or my colleagues may have been "brought forward" into today's note. My signature on this note, however, is an attestation that I personally performed the exam, history, and/or decision-making noted today, and, unless otherwise indicated, the interactions with patient, family, and staff as well as the review of records all occurred today. I also attest that the listed assessment and stated plan reflect my best clinical judgment today based on the combination of historical information, prior notes, and today's exam/ interactions. When time spent is documented, it refers only to time spent today by the signer, or if indicated, combined time spent today by collaborating physician/nurse practitioner. Greg Lane MD Apr 23, 2017 16:46
--- NOTE | 2017-04-23 17:29 | HHI.NPPN ---
Subjective Renal Failure: Acute History of Present Illness 47-year-old male with past medical history of metastatic colon cancer diagnosed in 2014, history of diabetes mellitus, came to the hospital with complaint of abdominal pain and back pain. I was called to see the patient because of elevated BUN and creatinine. The patient denies any previous history of renal disease. When he came in here his creatinine was 1.4 and has gone to 1.8. Previously he has creatinine of 0.9-1.0 this was in September of this year. Additional Remarks Patient is alert, sitting on the bed, no SOB,started passing more urine. Review of Systems General Constitutional: Fatigue Gastrointestinal Gastrointestinal: Abdominal Pain Objective Data Data 04/22/17 04/23/17 19:00 07:00 Intake Total 1641 ml 1230 ml Balance 1641 ml 1230 ml Intake Oral 304 ml IV Total 1029 ml 900 ml Packed Cells 308 ml 330 ml # Voids 4 # Bowel Movements 0 Vital Signs Date Time Temp Pulse Resp B/P Pulse Ox O2 Delivery O2 Flow Rate FiO2 04/23/17 16:00 97.9 92 18 125/70 97 04/23/17 12:00 98.2 99 18 115/77 98 04/23/17 08:00 97.0 90 18 131/75 95 04/23/17 04:00 96.1 107 18 138/71 95 04/23/17 01:46 18 04/23/17 00:00 97.8 106 17 131/72 96 04/22/17 18:55 96.3 108 128/76 99 -: 04/23/17 1121 04/23/17 1121 Physical Exam General Appearance: No Acute Distress, Comfortable Throat Throat Exam: Oral Mucosa [place] & Moist Pulmonary Resp Exam: Breath Sounds Equal, No Distress, Rhonchi, Decreased Bases Cardiology CV Exam: Regular, Normal Sinus Rhythm Gastrointestinal/Abdomen GI Exam: Soft, Non-Tender, Bowel Sounds Present, Distended Extremeties Extremities Exam: Moderate Edema, Pitting Edema Neurologic Neuro Exam: Alert, Awake, Oriented Psychiatric Psych Exam: Appropriate Responses Assessment/Plan Assessment Summary: NICOLÁS/Acute Renal Failure Problem List: (1) Elevated lactic acid level (2) Diabetes (3) Liver failure (4) Metastatic colon cancer to liver (5) Jaundice (6) NICOLÁS (acute kidney injury) Plan Patient has been non oliguric. Creatinine now stable. Urine Na. low and osmolality not very high. Most likely has ATN causing NICOLÁS, unlikely pre renal. Continue IVF with NaHco3. Follow the urine out put and BMP. Problem Qualifiers (1) Diabetes: Qualified Code: E11.9 - Type 2 diabetes mellitus without complication, with long-term current use of insulin (2) Liver failure: Qualified Code: K72.00 - Subacute liver failure without hepatic coma Ancelmo Zarate MD Apr 23, 2017 17:29
[2017-04-23] MEDS: ENOXAPARIN SODIUM 40 MG/0.4 ML SYRINGE SQ SCH (18:45)
--- NOTE | 2017-04-23 19:19 | HHI.PR ---
Subjective Remarks c/o diffuse abdominal pain denies nausea or vomiting denies fevers or chills increased abdominal girth WBC trending up Creatinine slightly higher Objective Vitals Vital Signs Date Time Temp Pulse Resp B/P Pulse Ox O2 Delivery O2 Flow Rate FiO2 04/23/17 16:00 97.9 92 18 125/70 97 04/23/17 12:00 98.2 99 18 115/77 98 04/23/17 08:00 97.0 90 18 131/75 95 04/23/17 04:00 96.1 107 18 138/71 95 04/23/17 01:46 18 04/23/17 00:00 97.8 106 17 131/72 96 I/O 04/22/17 04/22/17 04/22/17 04/23/17 04/23/17 04/23/17 07:00 15:00 23:00 07:00 15:00 23:00 Intake Total 2135 ml 1333 ml 638 ml 900 ml 1080 ml Balance 2135 ml 1333 ml 638 ml 900 ml 1080 ml Intake Oral 304 ml 1080 ml IV Total 2135 ml 1029 ml 900 ml Packed Cells 638 ml # Voids 4 3 # Bowel Movements 0 0 Result Diagram: 04/23/17 1121 04/23/17 1121 Imaging Last Impressions Chest X-Ray 04/20/17 0000 Signed Impressions: Service Date/Time: Thursday, April 20, 2017 16:52 - CONCLUSION: Low lung volumes. No infiltrates or effusions. Estevan Vyas Jr., MD Lower Extremity Ultrasound 04/19/17 1703 Signed Impressions: Service Date/Time: Wednesday, April 19, 2017 18:50 - CONCLUSION: No DVT right leg. Sea Solano MD Abdomen/Pelvis CT 04/19/17 1017 Signed Impressions: Service Date/Time: Wednesday, April 19, 2017 12:54 - CONCLUSION: 1. Malignant appearing cecal mass with metastatic disease to the liver and lungs. 2. The mass has eroded through the bowel wall with involvement of the surrounding mesentery and possibly small metastatic lymph nodes locally at the site with slight ascites and early peritoneal carcinomatosis is not excluded Elton Nunn MD Objective Remarks GENERAL: This is a mal-nourished, well-developed patient, in no apparent distress. SKIN: No rashes, ecchymoses or lesions. Cool and dry. (+) Jaundice HEAD: Atraumatic. Normocephalic. No temporal or scalp tenderness. EYES: Pupils equal round and reactive. Extraocular motions intact. No injection or drainage. (+) icteric sclerae ENT: Nose without bleeding, purulent drainage or septal hematoma. Throat without erythema, tonsillar hypertrophy or exudate. Uvula midline. Airway patent. NECK: Trachea midline. No JVD or lymphadenopathy. Supple, nontender, no meningeal signs. CARDIOVASCULAR: Regular rate and rhythm without murmurs, gallops, or rubs. RESPIRATORY: Clear to auscultation. Breath sounds equal bilaterally. No wheezes , rales, or rhonchi. GASTROINTESTINAL: Abdomen soft, effusion tender to palpation, tended. No hepato- splenomegaly, or palpable masses. No guarding. (+) ascites MUSCULOSKELETAL: Extremities without clubbing, cyanosis, there is edema in the right lower extremity. No joint tenderness, effusion, or edema noted. No calf tenderness. Negative Homans sign bilaterally. NEUROLOGICAL: Awake and alert. Cranial nerves II through XII intact. Motor and sensory grossly within normal limits. Five out of 5 muscle strength in all muscle groups. Normal speech. Procedures none Medications and IVs Current Medications Medications (Trade) Dose Ordered Sig/Gary Route Start Time Stop Time Status Last Admin (NS Flush) 2 ml UNSCH PRN IV FLUSH 04/19/17 17:15 (NS Flush) 2 ml BID IV FLUSH 04/19/17 21:00 04/23/17 09:08 (Tylenol) 650 mg Q4H PRN PO 04/19/17 17:15 (Zofran Inj) 4 mg Q6H PRN IVP 04/19/17 17:15 04/19/17 18:05 (Lovenox Inj) 40 mg Q24H SQ 04/19/17 18:00 04/23/17 18:45 (Aniya-Colace) 1 tab BID PO 04/19/17 21:00 04/23/17 08:56 (Milk Of Magnesia Liq) 30 ml Q12H PRN PO 04/19/17 17:15 04/23/17 19:06 (Senokot) 17.2 mg Q12H PRN PO 04/19/17 17:15 04/20/17 18:59 (Dulcolax Supp) 10 mg DAILY PRN RECTAL 04/19/17 17:15 (Albumin 25% Inj) 25 gm Q12H IV 04/19/17 20:00 04/23/17 08:55 (Vitamin K Inj) 10 mg DAILY SQ 04/20/17 09:00 04/23/17 08:55 (Megace Liq) 400 mg DAILY PO 04/20/17 16:00 04/23/17 08:55 (Lactulose Liq) 30 ml Q12HR PRN PO 04/21/17 21:00 (D50w (Vial) Inj) 50 ml UNSCH PRN IV 04/21/17 22:15 (Glucagon Inj) 1 mg UNSCH PRN OTHER 04/21/17 22:15 Oxycodone HCl 5 mg 5 mg Q4H PRN PO 04/22/17 14:00 04/23/17 19:08 (Sodium Bicarbonate 8.4% Inj/1/2 NS 1000 ml Inj) 1,075 ml @ 84 mls/hr [id number] IV 04/22/17 18:30 04/23/17 13:36 Urinary Catheter: No Vascular Central Line Catheter: Yes Assessment to: Continue Line: Central Venous Catheter Side: Right Location: Subclavian Reason for Continuation chemotherapy A/P Problem List: (1) Metastatic colon cancer to liver ICD Code: C18.9 Status: Acute (2) Transaminitis ICD Code: R74.0 Status: Acute (3) Elevated alkaline phosphatase level ICD Code: R74.8 Status: Acute (4) NICOLÁS (acute kidney injury) ICD Code: N17.9 Status: Acute (5) Hyponatremia ICD Code: E87.1 Status: Acute (6) Diabetes ICD Code: E11.9 Status: Chronic (7) Anemia ICD Code: D64.9 Status: Acute (8) Severe protein-calorie malnutrition ICD Code: E43 Status: Acute (9) Coagulopathy ICD Code: D68.9 Status: Acute (10) Edema of right lower extremity ICD Code: R60.0 Status: Acute (11) Elevated lactic acid level ICD Code: R79.89 Status: Acute (12) Abdominal pain ICD Code: R10.9 Status: Acute (13) Jaundice ICD Code: R17 Status: Acute (14) SIRS (systemic inflammatory response syndrome) ICD Code: R65.10 Status: Acute (15) Ascites ICD Code: R18.8 Status: Acute Plan: Patient has increased abdominal girth and worsening ascites due to metastatic cancer. I will order an abdominal paracentesis and sent the fluid for Gram stain and culture. Assessment and Plan (1) Metastatic colon cancer to liver Plan: Patient was admitted to the general medical floor. Started on IV morphine for pain control. Dr Horn has been consulted and he recommended hospice care given that metastatic disease is pretty advanced given her failure. However upon insistence from family and patient, chemotherapy will be tried again as an outpatient. (2) Transaminitis Plan: Transaminitis with elevated alkaline phosphatase and coagulopathy likely secondary to liver failure due to metastatic liver disease. transaminases are slowly trending down. ALT now within normal range. ALk phos trending down. Continue to monitor liver function tests. ammonia level is normal (3) Elevated alkaline phosphatase level Plan: As above (4) NICOLÁS (acute kidney injury) Plan: Likely due to ATN Patient started an IV albumin and IV fluids Continue to monitor BUN/creatinine and creatinine, strict I's and O's, avoid nephrotoxins. Creatinine is more stable and acute kidney injury is worsening. Npehrology consulted, appreciate recommendations. Suspected ATN. (5) Hyponatremia Plan: Hyponatremia seems to be slightly better. We'll continue to monitor BMP. We'll check urine and serum osmolality. sodium 133 (6) Diabetes Plan: hemoglobin a1c 5.1. Diabetes is controlled. place on SSI with insulin Novolog and monitor accuchecks. (7) Anemia Plan: Normal MCV anemia. Studies consistent with anemia of chronic disease likely secondary to malignancy. Continue to monitor hemoglobin which has trended down likely after IV fluid administration. 04/21 hemoglobin stable. 04/22 transfused 1 unit of PRBC as per oncology recommendations. 04/23 hb 9.5. (8) Severe protein-calorie malnutrition Plan: Dietitian consulted and recommendations appreciated. Continue Megace for appetite stimulant. Will increase diet to 2200 ADA diet and start a multivitamin daily. (9) Coagulopathy Plan: Likely secondary to liver failure secondary to liver metastasis. Continue to monitor PT, PTT, continue vitamin K. (10) Edema of right lower extremity DVT ruled out with a LLE doppler us. (11) Elevated lactic acid level Plan: Likely elevated secondary to dehydration and cancer. Continue IV fluids. Continue to monitor lactic acid. (12) Abdominal pain Plan: Likely secondary to metastatic colon cancer. However cannot rule out SBP given that there is increased lactic acid and pain. 04/20 Continue IV Rocephin, amount of ascites seen on CT abdomen seems to be not enough for abdominal paracentesis. (13) Jaundice Plan: due to liver failure due to metastasis. Continue to monitor liver function tests. (14) SIRS (systemic inflammatory response syndrome) Plan: Patient meets SIRS criteria - tachycardia more than 16% bands. Initially started on IV rocephin since patient came with abdominal pain. 04/22 Id consulted - no signs of sepsis - recommended discontinuation of antibiotics. 04/23 patient has worsening leukocytosis today. Likely reactive. Continue to monitor CBC. Assessment and Plan DVT prophylaxis: SCDs, Lovenox subcutaneously. Discharge Planning Continue to monitor in the medical floor. Pending abdominal paracentesis and improvement of renal function. Problem Qualifiers (1) Diabetes: Qualified Code: E11.9 - Type 2 diabetes mellitus without complication, with long-term current use of insulin (2) Anemia: Qualified Code: D64.9 - Anemia, unspecified type (3) Abdominal pain: Qualified Code: R10.84 - Generalized abdominal pain (4) Ascites: Qualified Code: R18.0 - Malignant ascites Audi Negrete MD Apr 23, 2017 19:19
[2017-04-23 20:00] VITALS: BP 140/78; PULSE 104; RESP 20; TEMP 97.5; O2SAT 100
[2017-04-24] VITALS: BP 130/79; PULSE 105; RESP 20; TEMP 97.6; O2SAT 96
[2017-04-24 04:00] VITALS: BP 133/71; PULSE 104; RESP 20; TEMP 96.4; O2SAT 97
[2017-04-24] MEDS: INSULIN ASPART SUPPLEMENTAL SCALE SQ SCH ×4 (06:34→19:56)
[2017-04-24 07:52] LABS: AUTOMATED NEUTROPHIL # 10.4 TH/MM3 (1.8-7.7); BASOPHIL # 0.1 TH/MM3 (0-0.2); BASOPHIL % 0.7 % (0.0-2.0); EOSINOPHIL # 0.2 TH/MM3 (0-0.4); EOSINOPHIL % 1.4 % (0.0-4.0); HEMATOCRIT 29.6 % (39.0-51.0); LYMPH % 6.5 % (9.0-44.0); LYMPHOCYTE # 0.8 TH/MM3 (1.0-4.8); MEAN CELL VOLUME 95.6 FL (80.0-100.0); MEAN CORPUSCULAR HEMOGLOBIN 31.5 PG (27.0-34.0); MONO % 11.3 % (0.0-8.0); NEUT % 80.1 % (16.0-70.0); PLATELET COUNT 211 TH/MM3 (150-450); RED BLOOD COUNT 3.09 MIL/MM3 (4.50-5.90); RED CELL DISTRIBUTION WIDTH 21.9 % (11.6-17.2)
[2017-04-24 08:00] VITALS: BP 133/76; PULSE 75; RESP 16; TEMP 97.1; O2SAT 93
[2017-04-24 08:11] LABS: HEMO FLAGS AUTO DIFF
[2017-04-24 08:13] LABS: ALT (GPT) 29 U/L (12-78); ANION GAP 17 MEQ/L (5-15); AST (GOT) 128 U/L (15-37); BICARBONATE 17.2 MEQ/L (21.0-32.0); BLOOD UREA NITROGEN 59 MG/DL (7-18); CHLORIDE 99 MEQ/L (98-107); GLOMERULAR FILTRATION RATE 25 ML/MIN (>89); MAGNESIUM 2.8 MG/DL (1.5-2.5); POTASSIUM 3.7 MEQ/L (3.5-5.1); SODIUM (NA) 133 MEQ/L (136-145)
[2017-04-24 08:30] LABS: ALKALINE PHOSPHATASE 269 U/L (45-117); TOTAL BILIRUBIN ADULT 19.6 MG/DL (0.2-1.0)
--- NOTE | 2017-04-24 08:49 | HHI.PR ---
Subjective Remarks In the chair, jaundiced. No n/v/d/c. Denies pain in his belly. There si anasarca. Patient feels sob. Has a nonproductive cough. Went for paracentesis no much fluid fund and was not drained. Objective Vitals Vital Signs Date Time Temp Pulse Resp B/P Pulse Ox O2 Delivery O2 Flow Rate FiO2 04/24/17 08:00 97.1 75 16 133/76 93 04/24/17 04:00 96.4 104 20 133/71 97 04/24/17 00:49 18 04/24/17 00:00 97.6 105 20 130/79 96 04/23/17 20:00 97.5 104 20 140/78 100 04/23/17 16:00 97.9 92 18 125/70 97 04/23/17 12:00 98.2 99 18 115/77 98 I/O 04/23/17 04/23/17 04/23/17 04/24/17 04/24/17 04/24/17 07:00 15:00 23:00 07:00 15:00 23:00 Intake Total 900 ml 1080 ml 240 ml 1921 ml Balance 900 ml 1080 ml 240 ml 1921 ml Intake Oral 1080 ml 240 ml IV Total 900 ml 1921 ml # Voids 3 1 # Bowel Movements 0 Result Diagram: 04/24/17 0630 04/24/17 0630 Imaging Last Impressions Chest X-Ray 04/20/17 0000 Signed Impressions: Service Date/Time: Thursday, April 20, 2017 16:52 - CONCLUSION: Low lung volumes. No infiltrates or effusions. Estevan Vyas Jr., MD Lower Extremity Ultrasound 04/19/17 1703 Signed Impressions: Service Date/Time: Wednesday, April 19, 2017 18:50 - CONCLUSION: No DVT right leg. Sea Solano MD Abdomen/Pelvis CT 04/19/17 1017 Signed Impressions: Service Date/Time: Wednesday, April 19, 2017 12:54 - CONCLUSION: 1. Malignant appearing cecal mass with metastatic disease to the liver and lungs. 2. The mass has eroded through the bowel wall with involvement of the surrounding mesentery and possibly small metastatic lymph nodes locally at the site with slight ascites and early peritoneal carcinomatosis is not excluded Elton Nunn MD Objective Remarks GENERAL: This is a mal-nourished, well-developed patient, in no apparent distress. SKIN: No rashes, ecchymoses or lesions. Cool and dry. (+) Jaundice HEAD: Atraumatic. Normocephalic. No temporal or scalp tenderness. CARDIOVASCULAR: Regular rate and rhythm without murmurs, gallops, or rubs. RESPIRATORY: Clear to auscultation. Breath sounds equal bilaterally. No wheezes , rales, or rhonchi. GASTROINTESTINAL: Abdomen soft, effusion tender to palpation, tended. No hepato- splenomegaly, or palpable masses. No guarding. (+) ascites MUSCULOSKELETAL: Extremities without clubbing, cyanosis, edema in the right lower extremity. No joint tenderness, effusion, or edema noted. No calf tenderness. Negative Homans sign bilaterally. NEUROLOGICAL: Awake and alert. Cranial nerves II through XII intact. Motor and sensory grossly within normal limits. Five out of 5 muscle strength in all muscle groups. Normal speech. Procedures none Line: Central Venous Catheter Side: Right Location: Subclavian A/P Problem List: (1) Metastatic colon cancer to liver ICD Code: C18.9 Status: Acute (2) Transaminitis ICD Code: R74.0 Status: Acute (3) Elevated alkaline phosphatase level ICD Code: R74.8 Status: Acute (4) NICOLÁS (acute kidney injury) ICD Code: N17.9 Status: Acute (5) Hyponatremia ICD Code: E87.1 Status: Acute (6) Diabetes ICD Code: E11.9 Status: Chronic (7) Anemia ICD Code: D64.9 Status: Acute (8) Severe protein-calorie malnutrition ICD Code: E43 Status: Acute (9) Coagulopathy ICD Code: D68.9 Status: Acute (10) Edema of right lower extremity ICD Code: R60.0 Status: Acute (11) Elevated lactic acid level ICD Code: R79.89 Status: Acute (12) Abdominal pain ICD Code: R10.9 Status: Acute (13) Jaundice ICD Code: R17 Status: Acute (14) SIRS (systemic inflammatory response syndrome) ICD Code: R65.10 Status: Acute (15) Ascites ICD Code: R18.8 Status: Acute Assessment and Plan Metastatic colon cancer to liver Patient was admitted to the general medical floor. Started on IV morphine for pain control. Dr Horn has been consulted and he recommended hospice care given that metastatic disease is pretty advanced given her failure. However upon insistence from family and patient, chemotherapy will be tried again as an outpatient. Transaminitis Transaminitis with elevated alkaline phosphatase and coagulopathy likely secondary to liver failure due to metastatic liver disease. transaminases are slowly trending down. ALT now within normal range. ALk phos trending down. Continue to monitor liver function tests. ammonia level is normal Elevated alkaline phosphatase level As above NICOLÁS (acute kidney injury) Likely due to ATN Patient started an IV albumin and IV fluids Continue to monitor BUN/creatinine and creatinine, strict I's and O's, avoid nephrotoxins. Creatinine is more stable and acute kidney injury is worsening. Nephrology consulted, appreciate recommendations. Suspected ATN. Hyponatremia Hyponatremia seems to be slightly better. We'll continue to monitor BMP. We' ll check urine and serum osmolality. Monitor sodium Diabetes mellitus type 2 hemoglobin a1c 5.1. Diabetes is controlled. place on SSI with insulin Novolog and monitor accuchecks. Anemia Normal MCV anemia. Studies consistent with anemia of chronic disease likely secondary to malignancy. Continue to monitor hemoglobin which has trended down likely after IV fluid administration. 04/22 transfused 1 unit of PRBC as per oncology recommendations. H/H so far stable, monitor and transfuse as need Severe protein-calorie malnutrition Dietitian consulted and recommendations appreciated. Continue Megace for appetite stimulant. Will increase diet to 2200 ADA diet and start a multivitamin daily. Coagulopathy Likely secondary to liver failure secondary to liver metastasis. Continue to monitor PT, PTT, continue vitamin K. Edema of right lower extremity DVT ruled out with a LLE doppler us. Elevated lactic acid level Likely elevated secondary to dehydration and cancer. Continue IV fluids. Continue to monitor lactic acid. Abdominal pain Likely secondary to metastatic colon cancer. However cannot rule out SBP given that there is increased lactic acid and pain. 04/20 Continue IV Rocephin, amount of ascites seen on CT abdomen seems to be not enough for abdominal paracentesis. Jaundice Plan: due to liver failure due to metastasis. Continue to monitor liver function tests. SIRS (systemic inflammatory response syndrome) Patient meets SIRS criteria - tachycardia more than 16% bands. Initially started on IV rocephin since patient came with abdominal pain. 04/22 Id consulted - no signs of sepsis - recommended discontinuation of antibiotics. 04/23 patient has worsening leukocytosis. Likely reactive. Continue to monitor CBC. Assessment and Plan DVT prophylaxis: SCDs, Lovenox subcutaneously. Discharge Planning Continue to monitor in the medical floor. Pending improvement of renal function. discussed with the patient, nurse, family at bedside Problem Qualifiers (1) Diabetes: Qualified Code: E11.9 - Type 2 diabetes mellitus without complication, with long-term current use of insulin (2) Anemia: Qualified Code: D64.9 - Anemia, unspecified type (3) Abdominal pain: Qualified Code: R10.84 - Generalized abdominal pain (4) Ascites: Qualified Code: R18.0 - Malignant ascites Cindy Moore MD Apr 24, 2017 08:49
[2017-04-24] MEDS: DOCUSATE SODIUM 50 MG/SENNA 8.6 MG TAB PO SCH ×2 (09:00→19:29)
[2017-04-24] MEDS: SODIUM CHLORIDE 0.9% FLUSH 10 ML FLUSH IV FLUSH SCH ×2 (09:00→19:30)
[2017-04-24 09:37] LABS: BANDS 10 % (0-6); CORRECTED NUCLEATED RBC 1 /100 WBC (0-0); METAMYELOCYTES 2 % (0-1); NEUTROPHIL # MANUAL DIFF 11.7 TH/MM3 (1.8-7.7); POLYS (SEG NEUTROPHILS) 77 % (16-70); PROMYELOCYTES 1 % (0-0); WBC DIFF SAMPLE 100
[2017-04-24] MEDS: ALBUMIN HUMAN 25% 25 GM/100 ML BAGP IV SCH ×2 (09:37→19:31)
[2017-04-24] MEDS: PHYTONADIONE 10 MG/ML VIAL SQ SCH (09:37)
[2017-04-24] MEDS: MEGESTROL ACETATE SUSP 400 MG/10 ML CUP PO SCH (09:38)
[2017-04-24 09:39] LABS: ACANTHOCYTES 1+ (NORMAL); BURR CELLS 1+ (NORMAL); PLATELET ESTIMATE SMEAR NORMAL (NORMAL); PLATELET MORPHOLOGY NORMAL (NORMAL); SCAN/DIFF FINAL DIFF MANUAL
--- NOTE | 2017-04-24 10:49 | HHI.HCPN ---
Reason for visit a. To assist with evaluation and management of symptoms including:pain and dyspnea b. To assist medical decision maker(s) with: better understanding of current medical conditions; weighing benefits/burdens of medical treatment options; making medical treatment decisions. Subjective/Interval History The use of [employer] translation service constant through the entirety of visit. Pt denies pain, but state he is a little fatigued. He is sitting up in the chair. Denies nausea. Pt's at bedside. Again spoke about chemo and how pt likely will not tolerate. Pt continue to emphasize he wants to try, if it is available. He however said if it does not suceed or becomes intolerable amenable to hospice. He and are amenable to hospice consultation for information only. They still plan on getting chemo, if it is offered to them. Advance directives, code status was reviewed, and family would like some time to decided before completing them. We will follow up on Thursday. Family/friend interactions pt's supportive of pt's decision. Please see above. Advance Directives Living Will: Never completed Health Care Surrogate: Never completed Durable Power of Food Photographer: Never completed Objective Vital Signs Date Time Temp Pulse Resp B/P Pulse Ox O2 Delivery O2 Flow Rate FiO2 04/24/17 08:00 97.1 75 16 133/76 93 04/24/17 04:00 96.4 104 20 133/71 97 04/24/17 00:49 18 04/24/17 00:00 97.6 105 20 130/79 96 04/23/17 20:00 97.5 104 20 140/78 100 04/23/17 16:00 97.9 92 18 125/70 97 04/23/17 12:00 98.2 99 18 115/77 98 Intake & Output 04/24/17 04/24/17 07:00 19:00 Intake Total 2161 ml Balance 2161 ml Intake Oral 240 ml IV Total 1921 ml # Voids 1 Physical Exam CONSTITUTIONAL/GENERAL: This frail middle age gentleman, sitting in bed, appears comfortable TUBES/LINES/DRAINS:nasal canula, piv, has infusaport SKIN: jaundice HEAD: Atraumatic. Normocephalic. EYES:There is scleral icterus. EOM intact, No injection or drainage. Fundi not examined. ENT: Hearing grossly normal. Nose without bleeding or purulent drainage. Throat without visible erythema, exudates, masses, or lesions. NECK: Trachea midline. Supple, nontender. No palpable thyroid enlargement or nodularity. CARDIOVASCULAR: Regular rate and rhythm without murmurs, gallops, or rubs. No JVD. Peripheral pulses symmetric. RESPIRATORY/CHEST: Symmetric, unlabored respirations. Clear to auscultation. Breath sounds equal bilaterally. No wheezes, rales, or rhonchi. GASTROINTESTINAL: Abdomen soft, distended, non tender GENITOURINARY: Without palpable bladder distension. Sanchez catheter in place. MUSCULOSKELETAL: Extremities without clubbing, cyanosis, 2+ edema LYMPHATICS: No palpable cervical or supraclavicular adenopathy. NEUROLOGICAL: Awake and alert. Motor and sensory grossly within normal limits. Follows commands. Cognitively sharp. Moves all extremities. PSYCHIATRIC: No obvious anxiety/depression. no apparent hallucinations or other psychotic thought process. Diagnostic Tests Laboratory Laboratory Tests Test 04/22/17 04/22/17 04/22/17 04/22/17 05:53 05:55 12:38 14:06 Lactic Acid Level 2.9 mmol/L 2.6 mmol/L (0.4-2.0) (0.4-2.0) White Blood Count 11.8 TH/MM3 (4.0-11.0) Red Blood Count 2.55 MIL/MM3 (4.50-5.90) Hemoglobin 8.0 GM/DL (13.0-17.0) Hematocrit 25.3 % (39.0-51.0) Mean Corpuscular Volume 99.0 FL (80.0-100.0) Mean Corpuscular Hemoglobin 31.4 PG (27.0-34.0) Mean Corpuscular Hemoglobin 31.7 % Concent (32.0-36.0) Red Cell Distribution Width 20.9 % (11.6-17.2) Platelet Count 249 TH/MM3 (150-450) Mean Platelet Volume 6.8 FL (7.0-11.0) Neutrophils (%) (Auto) 80.2 % (16.0-70.0) Lymphocytes (%) (Auto) 6.9 % (9.0-44.0) Monocytes (%) (Auto) 11.6 % (0.0-8.0) Eosinophils (%) (Auto) 0.9 % (0.0-4.0) Basophils (%) (Auto) 0.4 % (0.0-2.0) Neutrophils # (Auto) 9.4 TH/MM3 (1.8-7.7) Lymphocytes # (Auto) 0.8 TH/MM3 (1.0-4.8) Monocytes # (Auto) 1.4 TH/MM3 (0-0.9) Eosinophils # (Auto) 0.1 TH/MM3 (0-0.4) Basophils # (Auto) 0.1 TH/MM3 (0-0.2) CBC Comment AUTO DIFF Differential Total Cells 100 Counted Neutrophils % (Manual) 71 % (16-70) Band Neutrophils % 15 % (0-6) Lymphocytes % 3 % (9-44) Monocytes % 8 % (0-8) Neutrophils # (Manual) 10.5 TH/MM3 (1.8-7.7) Metamyelocytes 2 % (0-1) Promyelocytes 1 % (0-0) Differential Comment FINAL DIFF MANUAL Platelet Estimate NORMAL (NORMAL) Platelet Morphology Comment NORMAL (NORMAL) Prothrombin Time 14.2 SEC (9.8-11.6) Prothromb Time International 1.3 RATIO Ratio Activated Partial 37.0 SEC Thromboplast Time (24.3-30.1) Sodium Level 132 MEQ/L (136-145) Potassium Level 3.9 MEQ/L (3.5-5.1) Chloride Level 101 MEQ/L (98-107) Carbon Dioxide Level 15.9 MEQ/L (21.0-32.0) Anion Gap 15 MEQ/L (5-15) Blood Urea Nitrogen 48 MG/DL (7-18) Creatinine 2.43 MG/DL (0.60-1.30) Estimat Glomerular Filtration 29 ML/MIN (>89) Rate Random Glucose 136 MG/DL (74-106) Calcium Level 8.2 MG/DL (8.5-10.1) Total Bilirubin 14.8 MG/DL (0.2-1.0) Aspartate Amino Transf 178 U/L (15-37) (AST/SGOT) Alanine Aminotransferase 39 U/L (12-78) (ALT/SGPT) Alkaline Phosphatase 323 U/L (45-117) Total Protein 7.1 GM/DL (6.4-8.2) Albumin 2.1 GM/DL (3.4-5.0) Blood Type O POSITIVE O POSITIVE Antibody Screen NEGATIVE Crossmatch Leukocyte-Reduced Red Blood Cells Blood Bank Comment Test 04/23/17 04/24/17 11:21 06:30 White Blood Count 13.2 TH/MM3 13.0 TH/MM3 (4.0-11.0) (4.0-11.0) Red Blood Count 3.05 MIL/MM3 3.09 MIL/MM3 (4.50-5.90) (4.50-5.90) Hemoglobin 9.5 GM/DL 9.8 GM/DL (13.0-17.0) (13.0-17.0) Hematocrit 29.1 % 29.6 % (39.0-51.0) (39.0-51.0) Mean Corpuscular Volume 95.2 FL 95.6 FL (80.0-100.0) (80.0-100.0) Mean Corpuscular Hemoglobin 31.0 PG 31.5 PG (27.0-34.0) (27.0-34.0) Mean Corpuscular Hemoglobin 32.5 % 33.0 % Concent (32.0-36.0) (32.0-36.0) Red Cell Distribution Width 22.1 % 21.9 % (11.6-17.2) (11.6-17.2) Platelet Count 221 TH/MM3 211 TH/MM3 (150-450) (150-450) Mean Platelet Volume 6.9 FL 7.0 FL (7.0-11.0) (7.0-11.0) Neutrophils (%) (Auto) 80.7 % 80.1 % (16.0-70.0) (16.0-70.0) Lymphocytes (%) (Auto) 6.3 % 6.5 % (9.0-44.0) (9.0-44.0) Monocytes (%) (Auto) 11.2 % 11.3 % (0.0-8.0) (0.0-8.0) Eosinophils (%) (Auto) 1.3 % (0.0-4.0) 1.4 % (0.0-4.0) Basophils (%) (Auto) 0.5 % (0.0-2.0) 0.7 % (0.0-2.0) Neutrophils # (Auto) 10.6 TH/MM3 10.4 TH/MM3 (1.8-7.7) (1.8-7.7) Lymphocytes # (Auto) 0.8 TH/MM3 0.8 TH/MM3 (1.0-4.8) (1.0-4.8) Monocytes # (Auto) 1.5 TH/MM3 1.5 TH/MM3 (0-0.9) (0-0.9) Eosinophils # (Auto) 0.2 TH/MM3 0.2 TH/MM3 (0-0.4) (0-0.4) Basophils # (Auto) 0.1 TH/MM3 0.1 TH/MM3 (0-0.2) (0-0.2) CBC Comment AUTO DIFF AUTO DIFF Differential Total Cells 100 100 Counted Neutrophils % (Manual) 84 % (16-70) 77 % (16-70) Band Neutrophils % 2 % (0-6) 10 % (0-6) Lymphocytes % 6 % (9-44) 6 % (9-44) Monocytes % 5 % (0-8) 4 % (0-8) Eosinophils % 1 % (0-4) Neutrophils # (Manual) 11.6 TH/MM3 11.7 TH/MM3 (1.8-7.7) (1.8-7.7) Metamyelocytes 1 % (0-1) 2 % (0-1) Myelocytes 1 % (0-0) Differential Comment FINAL DIFF FINAL DIFF MANUAL MANUAL Platelet Estimate NORMAL NORMAL (NORMAL) (NORMAL) Platelet Morphology Comment NORMAL NORMAL (NORMAL) (NORMAL) Sodium Level 133 MEQ/L 133 MEQ/L (136-145) (136-145) Potassium Level 3.6 MEQ/L 3.7 MEQ/L (3.5-5.1) (3.5-5.1) Chloride Level 100 MEQ/L 99 MEQ/L (98-107) (98-107) Carbon Dioxide Level 16.2 MEQ/L 17.2 MEQ/L (21.0-32.0) (21.0-32.0) Anion Gap 17 MEQ/L (5-15) 17 MEQ/L (5-15) Blood Urea Nitrogen 54 MG/DL (7-18) 59 MG/DL (7-18) Creatinine 2.48 MG/DL 2.73 MG/DL (0.60-1.30) (0.60-1.30) Estimat Glomerular Filtration 28 ML/MIN (>89) 25 ML/MIN (>89) Rate Random Glucose 154 MG/DL 155 MG/DL (74-106) (74-106) Calcium Level 8.7 MG/DL 9.1 MG/DL (8.5-10.1) (8.5-10.1) Total Bilirubin 17.4 MG/DL 19.6 MG/DL (0.2-1.0) (0.2-1.0) Aspartate Amino Transf 128 U/L (15-37) 128 U/L (15-37) (AST/SGOT) Alanine Aminotransferase 28 U/L (12-78) 29 U/L (12-78) (ALT/SGPT) Alkaline Phosphatase 275 U/L 269 U/L (45-117) (45-117) Total Protein 7.1 GM/DL 7.3 GM/DL (6.4-8.2) (6.4-8.2) Albumin 2.5 GM/DL 2.5 GM/DL (3.4-5.0) (3.4-5.0) Promyelocytes 1 % (0-0) Nucleated Red Blood Cells 1 /100 WBC (0-0) Pierron Cells 1+ (NORMAL) Acanthocytes 1+ (NORMAL) Phosphorus Level 3.7 MG/DL (2.5-4.9) Magnesium Level 2.8 MG/DL (1.5-2.5) Result Diagram: 04/24/1762904/24/17629 Microbiology Microbiology Date/Time Procedure Status Source Growth 04/21/17 20:15 Aerobic Blood Culture - Preliminary Resulted Blood Line NO GROWTH IN 2 DAYS 04/21/17 20:15 Anaerobic Blood Culture - Preliminary Resulted Blood Line NO GROWTH IN 2 DAYS 04/21/17 20:15 Aerobic Blood Culture - Preliminary Resulted Blood Line NO GROWTH IN 2 DAYS 04/21/17 20:15 Anaerobic Blood Culture - Preliminary Resulted Blood Line NO GROWTH IN 2 DAYS Assessment and Plan Disease Oriented Problem List: (1) Metastatic colon cancer to liver (2) NICOLÁS (acute kidney injury) (3) Transaminitis (4) Abdominal pain (5) Jaundice (6) Liver failure Symptom Scale: (1) Dyspnea 0-10 Scale: 0 Comment: gets dyspneic when painful (2) Pain 0-10 Scale: 5 Comment: 5 when it acts up, but currently 0. He has back pain and abdominal pain. Pertinent Non-Medical Issues Psychosocial: Spiritual: Legal: Ethical issues impacting care: Important Contacts Erica Driver [phone] Prognosis 47-year-old with metastatic colon cancer to the liver and lungs. Patient also has renal insufficiency and liver failure. Prognosis is poor and is hospice appropriate Code Status: Full Code Plan == Code: Full for, they would want more time to discuss. We will follow up Thursday. == Pain/ back and abdominal, currently denies abdominal pain and state oxycodone provides good relief. Dyspnea- he denies dyspnea at this current time. == goals of care The use of [employer] translation service constant through the entirety of visit. Pt denies pain, but state he is a little fatigued. He is sitting up in the chair. Denies nausea. Pt's at bedside. Again spoke about chemo and how pt likely will not tolerate. Pt continue to emphasize he wants to try, if it is available. He however said if it does not suceed or becomes intolerable, he is amenable to hospice. He and are amenable to hospice consultation for information only, if pt could not tolerate chemo in the future (in which palliative care review with pt that he more than likely will not). They still plan on getting chemo, if it is offered to them, and try. He state if he chemo fails, he is amenable to hospice. == palliative care will continue to follow. Plan to follow Thursday on advance directives. Time Spent Total Floor Time (mins): 45 Face to Face Time (mins): 35 Attestation To help prompt me to consider important information that might be impacting today's encounter and assessment, information from prior notes written by myself or my colleagues may have been "brought forward" into today's note. My signature on this note, however, is an attestation that I personally performed the exam, history, and/or decision-making noted today, and, unless otherwise indicated, the interactions with patient, family, and staff as well as the review of records all occurred today. I also attest that the listed assessment and stated plan reflect my best clinical judgment today based on the combination of historical information, prior notes, and today's exam/ interactions. When time spent is documented, it refers only to time spent today by the signer, or if indicated, combined time spent today by collaborating physician/nurse practitioner. Greg Lane MD Apr 24, 2017 10:49
[2017-04-24 12:00] VITALS: BP 129/77; PULSE 70; RESP 16; TEMP 96.9; O2SAT 95
--- NOTE | 2017-04-24 13:31 | PD.ONC.PN ---
Subjective Subjective Remarks Afebrile overnight. patient resting in room in nad. Still eager to receive chemotherapy. States he feels well today. Objective Data Date Time Temp Pulse Resp B/P Pulse Ox O2 Delivery O2 Flow Rate FiO2 04/24/17 12:00 96.9 70 16 129/77 95 04/24/17 08:00 97.1 75 16 133/76 93 04/24/17 04:00 96.4 104 20 133/71 97 04/24/17 00:49 18 04/24/17 00:00 97.6 105 20 130/79 96 04/23/17 20:00 97.5 104 20 140/78 100 04/23/17 16:00 97.9 92 18 125/70 97 04/24/17 04/24/17 04/24/17 07:00 15:00 23:00 Intake Total 1921 ml Balance 1921 ml Result Diagram: 04/24/17 0630 04/24/17 0630 Laboratory Results Laboratory Tests Test 04/24/17 06:30 White Blood Count 13.0 TH/MM3 Red Blood Count 3.09 MIL/MM3 Hemoglobin 9.8 GM/DL Hematocrit 29.6 % Mean Corpuscular Volume 95.6 FL Mean Corpuscular Hemoglobin 31.5 PG Mean Corpuscular Hemoglobin 33.0 % Concent Red Cell Distribution Width 21.9 % Platelet Count 211 TH/MM3 Mean Platelet Volume 7.0 FL Neutrophils (%) (Auto) 80.1 % Lymphocytes (%) (Auto) 6.5 % Monocytes (%) (Auto) 11.3 % Eosinophils (%) (Auto) 1.4 % Basophils (%) (Auto) 0.7 % Neutrophils # (Auto) 10.4 TH/MM3 Lymphocytes # (Auto) 0.8 TH/MM3 Monocytes # (Auto) 1.5 TH/MM3 Eosinophils # (Auto) 0.2 TH/MM3 Basophils # (Auto) 0.1 TH/MM3 CBC Comment AUTO DIFF Differential Total Cells 100 Counted Neutrophils % (Manual) 77 % Band Neutrophils % 10 % Lymphocytes % 6 % Monocytes % 4 % Neutrophils # (Manual) 11.7 TH/MM3 Metamyelocytes 2 % Promyelocytes 1 % Nucleated Red Blood Cells 1 /100 WBC Differential Comment FINAL DIFF MANUAL Platelet Estimate NORMAL Platelet Morphology Comment NORMAL Franky Cells 1+ Acanthocytes 1+ Sodium Level 133 MEQ/L Potassium Level 3.7 MEQ/L Chloride Level 99 MEQ/L Carbon Dioxide Level 17.2 MEQ/L Anion Gap 17 MEQ/L Blood Urea Nitrogen 59 MG/DL Creatinine 2.73 MG/DL Estimat Glomerular Filtration 25 ML/MIN Rate Random Glucose 155 MG/DL Calcium Level 9.1 MG/DL Phosphorus Level 3.7 MG/DL Magnesium Level 2.8 MG/DL Total Bilirubin 19.6 MG/DL Aspartate Amino Transf 128 U/L (AST/SGOT) Alanine Aminotransferase 29 U/L (ALT/SGPT) Alkaline Phosphatase 269 U/L Total Protein 7.3 GM/DL Albumin 2.5 GM/DL Culture Results Microbiology Date/Time Procedure Status Source Growth 04/21/17 20:15 Aerobic Blood Culture - Preliminary Resulted Blood Line NO GROWTH IN 3 DAYS 04/21/17 20:15 Anaerobic Blood Culture - Preliminary Resulted Blood Line NO GROWTH IN 3 DAYS 04/21/17 20:15 Aerobic Blood Culture - Preliminary Resulted Blood Line NO GROWTH IN 3 DAYS 04/21/17 20:15 Anaerobic Blood Culture - Preliminary Resulted Blood Line NO GROWTH IN 3 DAYS Administered Medications Medications (Trade) Dose Ordered Sig/Gary Route PRN Reason Start Time Stop Time Status Last Admin Dose Admin Sodium Chloride (NS Flush) 2 ml BID IV FLUSH 04/19/17 21:00 04/23/17 22:24 Ondansetron HCl (Zofran Inj) 4 mg Q6H PRN IVP NAUSEA OR VOMITING 04/19/17 17:15 04/19/17 18:05 Enoxaparin Sodium (Lovenox Inj) 40 mg Q24H SQ 04/19/17 18:00 Hold 04/23/17 18:45 Senna/Docusate Sodium (Aniya-Colace) 1 tab BID PO 04/19/17 21:00 04/23/17 22:23 Magnesium Hydroxide (Milk Of Magnesia Liq) 30 ml Q12H PRN PO MILD - MODERATE CONSTIPATION 04/19/17 17:15 04/23/17 19:06 Sennosides (Senokot) 17.2 mg Q12H PRN PO MODERATE - SEVERE CONSTIPATION 04/19/17 17:15 04/20/17 18:59 Albumin Human (Albumin 25% Inj) 25 gm Q12H IV 04/19/17 20:00 04/24/17 09:37 Phytonadione (Vitamin K Inj) 10 mg DAILY SQ 04/20/17 09:00 04/24/17 09:37 Megestrol Acetate (Megace Liq) 400 mg DAILY PO 04/20/17 16:00 04/24/17 09:38 Oxycodone HCl 5 mg 5 mg Q4H PRN PO pain 04/22/17 14:00 04/23/17 23:01 Sodium Bicarbonate/ Sodium Chloride (Sodium Bicarbonate 8.4% Inj/1/2 NS 1000 ml Inj) 1,075 ml @ 84 mls/hr [id number] IV 04/22/17 18:30 04/23/17 13:36 Objective Remarks GENERAL: Middle aged male upright in chair in room. SKIN: Warm and dry. +jaundice HEAD: Normocephalic. EYES: No injection or drainage. NECK: Supple, trachea midline. CARDIOVASCULAR: +S1/S2, tachy RESPIRATORY: Breath sounds equal bilaterally. No accessory muscle use. GASTROINTESTINAL: Abdomen distended with ascites EXTREMITIES: No cyanosis, +BLE with 3+ edema. + anasarca NEUROLOGICAL: awake and alert, normal speech. able to move extremities. Assessment/Plan Problem List: (1) Metastatic colon cancer to liver Status: Acute Plan: 04/24: reviewed palliative care visit, appreciate palliative care assistance. d/w patient and patient's labs today and showed/reviewed labs on EMR. as patient is still insistent on chemotherapy, he could be discharged with follow up in clinic on Thursday for reduced dose chemotherapy. -- History of colon cancer with liver metastasis diagnosed two years ago in 2014. --initially was treated with Xelox, then Avastin and FOLFOX chemotherapy with an excellent response. --elected to stop further chemotherapy in November due to financial reasons. --now has extensive liver metastasis and the cancer has now progressed into both lungs. -- have strongly recommended Hospice for best supportive care. I do not think the patient would be able to tolerate further chemotherapy due to the extensive metastasis as well as liver failure. --recommended Hospice for best supportive care. However, the patient and his family adamantly declined. (2) Jaundice Status: Acute Plan: --has severe jaundice due to extensive liver metastasis. --patient does not have any dilated bile duct so the patient does not have any obstruction of the bile ducts. This is all hepatocellular disease from extensive colon metastasis. Assessment 47y/o male with metastatic colon cancer. h/o Morbid obesity. Depression. Diabetes mellitus. Colon cancer with liver metastasis. Attending Statement denies any new c/o wants to go home so that he can resume chemo on Thursday. extensive d/w pt and . I have recommended hospice,. Pt insist on retrying chemo. he understand chemo may not benefit now given liver and kidney failure. He still wants it. Ok to d/c chemo on thursday in the office. The exam, history, and the medical decision-making described in the above note were completed with the assistance of the mid-level provider. I reviewed and agree with the findings presented. I attest that I had a [id number] encounter with the patient on the same day, and personally performed and documented my assessment and findings in the medical record. Didi Yanes Apr 24, 2017 13:31 Madeleine Horn MD Apr 24, 2017 15:15
--- NOTE | 2017-04-24 14:30 | RADRPT ---
EXAM DATE/TIME: 04/24/2017 09:02 [facility] COMPARISON: No previous studies available for comparison. INDICATIONS : Ascites. MEDICAL HISTORY : Hypercholesterolemia. Colon cancer with mets to lungs and liver. SURGICAL HISTORY : Right chest port. ENCOUNTER: Initial ACUITY: 1 day PAIN SCORE: 3/10 LOCATION: Abdomen. AREA EVALUATED: Abdomen. FINDINGS: Imaging of the abdomen and pelvis was performed to evaluate for ascites for possible paracentesis. CONCLUSION: There is no significant ascites evident. Jesus Yo MD FACR on April 24, 2017 at 14:28 Board Certified Radiologist. This report was verified electronically.
[2017-04-24 16:00] VITALS: BP 129/71; PULSE 100; RESP 16; TEMP 97.5; O2SAT 96
--- NOTE | 2017-04-24 16:06 | HHI.NPPN ---
Subjective Renal Failure: Acute History of Present Illness 47-year-old male with past medical history of metastatic colon cancer diagnosed in 2014, history of diabetes mellitus, came to the hospital with complaint of abdominal pain and back pain. I was called to see the patient because of elevated BUN and creatinine. The patient denies any previous history of renal disease. When he came in here his creatinine was 1.4 and has gone to 1.8. Previously he has creatinine of 0.9-1.0 this was in September of this year. Additional Remarks Patient is alert, sitting on chair, started eating better, has mild SOB. Review of Systems General Constitutional: Fatigue Gastrointestinal Gastrointestinal: Abdominal Pain Objective Data Data 04/23/17 04/24/17 18:59 06:59 Intake Total 1080 ml 2161 ml Balance 1080 ml 2161 ml Intake Oral 1080 ml 240 ml IV Total 1921 ml # Voids 3 1 # Bowel Movements 0 Vital Signs Date Time Temp Pulse Resp B/P Pulse Ox O2 Delivery O2 Flow Rate FiO2 04/24/17 16:00 97.5 100 16 129/71 96 04/24/17 12:00 96.9 70 16 129/77 95 04/24/17 08:00 97.1 75 16 133/76 93 04/24/17 04:00 96.4 104 20 133/71 97 04/24/17 00:49 18 04/24/17 00:00 97.6 105 20 130/79 96 04/23/17 20:00 97.5 104 20 140/78 100 -: 04/24/17 0630 04/24/17 0630 Physical Exam General Appearance: No Acute Distress, Comfortable Throat Throat Exam: Oral Mucosa Hale & Moist Pulmonary Resp Exam: Breath Sounds Equal, No Distress, Rhonchi, Decreased Bases Cardiology CV Exam: Regular, Normal Sinus Rhythm Gastrointestinal/Abdomen GI Exam: Soft, Non-Tender, Bowel Sounds Present, Distended Extremeties Extremities Exam: Moderate Edema, Pitting Edema Neurologic Neuro Exam: Alert, Awake, Oriented Psychiatric Psych Exam: Appropriate Responses Assessment/Plan Assessment Summary: NICOLÁS/Acute Renal Failure Problem List: (1) Elevated lactic acid level (2) Diabetes (3) Liver failure (4) Metastatic colon cancer to liver (5) Jaundice (6) NICOLÁS (acute kidney injury) Plan Patient has been non oliguric. Creatinine again increase to 2.7. Urine Na. low and osmolality not very high. Most likely has ATN causing NICOLÁS, unlikely pre renal. Continue IVF with NaHco3. Follow the urine out put and BMP. Has also increase in Bili. Problem Qualifiers (1) Diabetes: Qualified Code: E11.9 - Type 2 diabetes mellitus without complication, with long-term current use of insulin (2) Liver failure: Qualified Code: K72.00 - Subacute liver failure without hepatic coma Ancelmo Zarate MD Apr 24, 2017 16:06
[2017-04-24] MEDS: SODIUM BICARBONATE 8.4% INJ 75 MEQ in SODIUM CHLOR 0.45% 1000 ML INJ 1,000 ML IV SCH (18:47)
[2017-04-24 20:00] VITALS: BP 133/74; PULSE 102; RESP 21; TEMP 96.7; O2SAT 95
[2017-04-25] VITALS: BP 129/71; PULSE 99; RESP 22; TEMP 96.7; O2SAT 96
[2017-04-25 04:00] VITALS: BP 132/78; PULSE 101; RESP 23; TEMP 96.4; O2SAT 96
[2017-04-25 06:21] LABS: ALKALINE PHOSPHATASE 258 U/L (45-117); ALT (GPT) 28 U/L (12-78); ANION GAP 17 MEQ/L (5-15); AST (GOT) 122 U/L (15-37); BLOOD UREA NITROGEN 64 MG/DL (7-18); CHLORIDE 99 MEQ/L (98-107); GLOMERULAR FILTRATION RATE 25 ML/MIN (>89); POTASSIUM 3.3 MEQ/L (3.5-5.1); SODIUM (NA) 135 MEQ/L (136-145); TOTAL BILIRUBIN ADULT 21.8 MG/DL (0.2-1.0)
[2017-04-25 06:37] LABS: BASOPHIL # 0.2 TH/MM3 (0-0.2); BASOPHIL % 1.3 % (0.0-2.0); EOSINOPHIL # 0.2 TH/MM3 (0-0.4); EOSINOPHIL % 1.7 % (0.0-4.0); HEMATOCRIT 28.4 % (39.0-51.0); LYMPH % 5.8 % (9.0-44.0); LYMPHOCYTE # 0.7 TH/MM3 (1.0-4.8); MEAN CELL VOLUME 94.5 FL (80.0-100.0); MEAN CORPUSCULAR HEMOGLOBIN 32.2 PG (27.0-34.0); MONO % 10.5 % (0.0-8.0); NEUT % 80.7 % (16.0-70.0); PLATELET COUNT 168 TH/MM3 (150-450); RED BLOOD COUNT 3.01 MIL/MM3 (4.50-5.90); RED CELL DISTRIBUTION WIDTH 20.8 % (11.6-17.2); WHITE BLOOD COUNT 12.4 TH/MM3 (4.0-11.0)
[2017-04-25] MEDS: SODIUM BICARBONATE 8.4% INJ 75 MEQ in SODIUM CHLOR 0.45% 1000 ML INJ 1,000 ML IV SCH (06:37)
[2017-04-25] MEDS: INSULIN ASPART SUPPLEMENTAL SCALE SQ SCH (06:39)
[2017-04-25 06:44] LABS: HEMO FLAGS AUTO DIFF
[2017-04-25 07:50] VITALS: BP 115/64; PULSE 100; RESP 20; TEMP 97.5; O2SAT 97
[2017-04-25] MEDS: MEGESTROL ACETATE SUSP 400 MG/10 ML CUP PO SCH (08:29)
[2017-04-25] MEDS: PHYTONADIONE 10 MG/ML VIAL SQ SCH (08:29)
[2017-04-25] MEDS: ALBUMIN HUMAN 25% 25 GM/100 ML BAGP IV SCH (08:30)
[2017-04-25] MEDS: DOCUSATE SODIUM 50 MG/SENNA 8.6 MG TAB PO SCH (08:30)
[2017-04-25] MEDS: SODIUM CHLORIDE 0.9% FLUSH 10 ML FLUSH IV FLUSH SCH (08:30)
--- NOTE | 2017-04-25 08:40 | HHI.PR ---
Subjective Remarks In bed. says she feels tired however feel simprpved since yesterday. No n/v/d/ c. +jaundice. No pain at this time. No fever or chills. Objective Vitals Vital Signs Date Time Temp Pulse Resp B/P Pulse Ox O2 Delivery O2 Flow Rate FiO2 04/25/17 04:00 96.4 101 23 132/78 96 04/25/17 00:00 96.7 99 22 129/71 96 04/24/17 22:00 16 04/24/17 20:00 96.7 102 21 133/74 95 04/24/17 16:00 97.5 100 16 129/71 96 04/24/17 12:00 96.9 70 16 129/77 95 I/O 04/24/17 04/24/17 04/24/17 04/25/17 04/25/17 04/25/17 07:00 15:00 23:00 07:00 15:00 23:00 Intake Total 1921 ml 1585 ml 480 ml 480 ml Balance 1921 ml 1585 ml 480 ml 480 ml Intake Oral 1080 ml 480 ml 480 ml IV Total 1921 ml 505 ml # Voids 4 5 4 # Bowel Movements 2 Result Diagram: 04/25/17 0443 04/25/17 0443 Imaging Last Impressions Abdomen Ultrasound 04/24/17 0000 Signed Impressions: Service Date/Time: Monday, April 24, 2017 09:02 - CONCLUSION: There is no significant ascites evident. Jesus Yo MD FACR Chest X-Ray 04/20/17 0000 Signed Impressions: Service Date/Time: Thursday, April 20, 2017 16:52 - CONCLUSION: Low lung volumes. No infiltrates or effusions. Estevan Vyas Jr., MD Lower Extremity Ultrasound 04/19/17 1703 Signed Impressions: Service Date/Time: Wednesday, April 19, 2017 18:50 - CONCLUSION: No DVT right leg. Sea Solano MD Abdomen/Pelvis CT 04/19/17 1017 Signed Impressions: Service Date/Time: Wednesday, April 19, 2017 12:54 - CONCLUSION: 1. Malignant appearing cecal mass with metastatic disease to the liver and lungs. 2. The mass has eroded through the bowel wall with involvement of the surrounding mesentery and possibly small metastatic lymph nodes locally at the site with slight ascites and early peritoneal carcinomatosis is not excluded Elton Nunn MD Objective Remarks GENERAL: This is a mal-nourished, well-developed patient, in no apparent distress. SKIN: No rashes, ecchymoses or lesions. Cool and dry. (+) Jaundice HEAD: Atraumatic. Normocephalic. No temporal or scalp tenderness. CARDIOVASCULAR: Regular rate and rhythm without murmurs, gallops, or rubs. RESPIRATORY: Clear to auscultation. Breath sounds equal bilaterally. No wheezes , rales, or rhonchi. GASTROINTESTINAL: Abdomen soft, effusion tender to palpation, tended. No hepato- splenomegaly, or palpable masses. No guarding. (+) ascites MUSCULOSKELETAL: Extremities without clubbing, cyanosis, edema in the right lower extremity. No joint tenderness, effusion, or edema noted. No calf tenderness. Negative Homans sign bilaterally. NEUROLOGICAL: Awake and alert. Cranial nerves II through XII intact. Motor and sensory grossly within normal limits. Five out of 5 muscle strength in all muscle groups. Normal speech. Procedures none Line: Central Venous Catheter Side: Right Location: Subclavian A/P Problem List: (1) Metastatic colon cancer to liver ICD Code: C18.9 Status: Acute (2) Transaminitis ICD Code: R74.0 Status: Acute (3) Elevated alkaline phosphatase level ICD Code: R74.8 Status: Acute (4) NICOLÁS (acute kidney injury) ICD Code: N17.9 Status: Acute (5) Hyponatremia ICD Code: E87.1 Status: Acute (6) Diabetes ICD Code: E11.9 Status: Chronic (7) Anemia ICD Code: D64.9 Status: Acute (8) Severe protein-calorie malnutrition ICD Code: E43 Status: Acute (9) Coagulopathy ICD Code: D68.9 Status: Acute (10) Edema of right lower extremity ICD Code: R60.0 Status: Acute (11) Elevated lactic acid level ICD Code: R79.89 Status: Acute (12) Abdominal pain ICD Code: R10.9 Status: Acute (13) Jaundice ICD Code: R17 Status: Acute (14) SIRS (systemic inflammatory response syndrome) ICD Code: R65.10 Status: Acute (15) Ascites ICD Code: R18.8 Status: Acute Assessment and Plan Metastatic colon cancer to liver Patient was admitted to the general medical floor. Started on IV morphine for pain control. Dr Horn has been consulted and he recommended hospice care given that metastatic disease is pretty advanced given her failure. However upon insistence from family and patient, chemotherapy will be tried again as an outpatient. Transaminitis Transaminitis with elevated alkaline phosphatase and coagulopathy likely secondary to liver failure due to metastatic liver disease. transaminases are slowly trending down. ALT now within normal range. ALk phos trending down. Continue to monitor liver function tests. ammonia level is normal Elevated alkaline phosphatase level As above NICOLÁS (acute kidney injury) Likely due to ATN Patient started an IV albumin and IV fluids Continue to monitor BUN/creatinine and creatinine, strict I's and O's, avoid nephrotoxins. Creatinine is more stable and acute kidney injury is worsening. Nephrology consulted, appreciate recommendations. Suspected ATN. Hyponatremia Hyponatremia seems to be slightly better. We'll continue to monitor BMP. We' ll check urine and serum osmolality. Monitor sodium Diabetes mellitus type 2 hemoglobin a1c 5.1. Diabetes is controlled. place on SSI with insulin Novolog and monitor accuchecks. Anemia Normal MCV anemia. Studies consistent with anemia of chronic disease likely secondary to malignancy. Continue to monitor hemoglobin which has trended down likely after IV fluid administration. 04/22 transfused 1 unit of PRBC as per oncology recommendations. H/H so far stable, monitor and transfuse as need Severe protein-calorie malnutrition Dietitian consulted and recommendations appreciated. Continue Megace for appetite stimulant. Will increase diet to 2200 ADA diet and start a multivitamin daily. Coagulopathy Likely secondary to liver failure secondary to liver metastasis. Continue to monitor PT, PTT, continue vitamin K. Edema of right lower extremity DVT ruled out with a LLE doppler us. Elevated lactic acid level Likely elevated secondary to dehydration and cancer. Continue IV fluids. Continue to monitor lactic acid. Abdominal pain Likely secondary to metastatic colon cancer. However cannot rule out SBP given that there is increased lactic acid and pain. 04/20 Continue IV Rocephin, amount of ascites seen on CT abdomen seems to be not enough for abdominal paracentesis. Jaundice Plan: due to liver failure due to metastasis. Continue to monitor liver function tests. SIRS (systemic inflammatory response syndrome) Patient meets SIRS criteria - tachycardia more than 16% bands. Initially started on IV rocephin since patient came with abdominal pain. 04/22 Id consulted - no signs of sepsis - recommended discontinuation of antibiotics. 04/23 patient has worsening leukocytosis. Likely reactive. Continue to monitor CBC. Assessment and Plan DVT prophylaxis: SCDs, Lovenox subcutaneously. Discharge Planning Plan to [place] home. Plan to follow up on Thursday at Dr Horn hem/onc office for trial chemo. Discharge din stable condition to follow up as O [facility] PCP and consultants. discussed with the patient, nurse, family at bedside Problem Qualifiers (1) Diabetes: Qualified Code: E11.9 - Type 2 diabetes mellitus without complication, with long-term current use of insulin (2) Anemia: Qualified Code: D64.9 - Anemia, unspecified type (3) Abdominal pain: Qualified Code: R10.84 - Generalized abdominal pain (4) Ascites: Qualified Code: R18.0 - Malignant ascites Cindy Moore MD Apr 25, 2017 08:40
[2017-04-25] MEDS ORDERED: MEGE40SU PO (09:10)
--- NOTE | 2017-04-25 09:11 | HHI.DS ---
Discharge Summary Admission Date Apr 21, 2017 at 16:18 Discharge Date: Apr 25, 2017 Admitting Diagnosis liver failure, metastatic cancer (1) Metastatic colon cancer to liver ICD Code: C18.9 Diagnosis: Principal (2) Transaminitis ICD Code: R74.0 Diagnosis: Principal (3) Elevated alkaline phosphatase level ICD Code: R74.8 Diagnosis: Secondary (4) NICOLÁS (acute kidney injury) ICD Code: N17.9 Diagnosis: Principal (5) Diabetes ICD Code: E11.9 Diagnosis: Secondary (6) Anemia ICD Code: D64.9 Diagnosis: Secondary (7) Severe protein-calorie malnutrition ICD Code: E43 Diagnosis: Secondary (8) Coagulopathy ICD Code: D68.9 Diagnosis: Secondary (9) Edema of right lower extremity ICD Code: R60.0 Diagnosis: Secondary (10) Elevated lactic acid level ICD Code: R79.89 Diagnosis: Secondary (11) Abdominal pain ICD Code: R10.9 Diagnosis: Secondary (12) Jaundice ICD Code: R17 Diagnosis: Secondary (13) SIRS (systemic inflammatory response syndrome) ICD Code: R65.10 Diagnosis: Secondary (14) Ascites ICD Code: R18.8 Diagnosis: Secondary Procedures none Brief History - From Admission This is a 47-year-old male with significant past medical history of metastatic colon cancer diagnosed in 2014 at [facility] for which the patient underwent chemotherapy which he states he was forced to stop due to problems with insurance. The patient states that initially he had a good response to the chemotherapy however the cancer came back and then the patient had stopped treatment due to insurance issues. The patient complains of increased weakness , yellow skin, shortness of breath especially with exertion, lack of appetite, increased abdominal pain and back pain as well as nausea. Denies fevers or chills, denies chest pain, denies diarrhea or dysuria. The patient has being previously followed by Dr. Jo from oncology. CBC/BMP: 04/25/17 0443 04/25/17 0443 Significant Findings Laboratory Tests Test 04/22/17 04/23/17 04/24/17 04/25/17 12:38 11:21 06:30 04:43 Lactic Acid Level 2.6 mmol/L (0.4-2.0) White Blood Count 13.2 TH/MM3 13.0 TH/MM3 12.4 TH/MM3 (4.0-11.0) (4.0-11.0) (4.0-11.0) Red Blood Count 3.05 MIL/MM3 3.09 MIL/MM3 3.01 MIL/MM3 (4.50-5.90) (4.50-5.90) (4.50-5.90) Hemoglobin 9.5 GM/DL 9.8 GM/DL 9.7 GM/DL (13.0-17.0) (13.0-17.0) (13.0-17.0) Hematocrit 29.1 % 29.6 % 28.4 % (39.0-51.0) (39.0-51.0) (39.0-51.0) Red Cell Distribution Width 22.1 % 21.9 % 20.8 % (11.6-17.2) (11.6-17.2) (11.6-17.2) Mean Platelet Volume 6.9 FL (7.0-11.0) Neutrophils (%) (Auto) 80.7 % 80.1 % 80.7 % (16.0-70.0) (16.0-70.0) (16.0-70.0) Lymphocytes (%) (Auto) 6.3 % 6.5 % 5.8 % (9.0-44.0) (9.0-44.0) (9.0-44.0) Monocytes (%) (Auto) 11.2 % 11.3 % 10.5 % (0.0-8.0) (0.0-8.0) (0.0-8.0) Neutrophils # (Auto) 10.6 TH/MM3 10.4 TH/MM3 10.0 TH/MM3 (1.8-7.7) (1.8-7.7) (1.8-7.7) Lymphocytes # (Auto) 0.8 TH/MM3 0.8 TH/MM3 0.7 TH/MM3 (1.0-4.8) (1.0-4.8) (1.0-4.8) Monocytes # (Auto) 1.5 TH/MM3 1.5 TH/MM3 1.3 TH/MM3 (0-0.9) (0-0.9) (0-0.9) Neutrophils % (Manual) 84 % (16-70) 77 % (16-70) Lymphocytes % 6 % (9-44) 6 % (9-44) Neutrophils # (Manual) 11.6 TH/MM3 11.7 TH/MM3 (1.8-7.7) (1.8-7.7) Myelocytes 1 % (0-0) Sodium Level 133 MEQ/L 133 MEQ/L 135 MEQ/L (136-145) (136-145) (136-145) Carbon Dioxide Level 16.2 MEQ/L 17.2 MEQ/L 19.0 MEQ/L (21.0-32.0) (21.0-32.0) (21.0-32.0) Anion Gap 17 MEQ/L (5-15) 17 MEQ/L (5-15) 17 MEQ/L (5-15) Blood Urea Nitrogen 54 MG/DL (7-18) 59 MG/DL (7-18) 64 MG/DL (7-18) Creatinine 2.48 MG/DL 2.73 MG/DL 2.79 MG/DL (0.60-1.30) (0.60-1.30) (0.60-1.30) Estimat Glomerular Filtration 28 ML/MIN (>89) 25 ML/MIN (>89) 25 ML/MIN (>89) Rate Random Glucose 154 MG/DL 155 MG/DL 144 MG/DL (74-106) (74-106) (74-106) Total Bilirubin 17.4 MG/DL 19.6 MG/DL 21.8 MG/DL (0.2-1.0) (0.2-1.0) (0.2-1.0) Aspartate Amino Transf 128 U/L (15-37) 128 U/L (15-37) 122 U/L (15-37) (AST/SGOT) Alkaline Phosphatase 275 U/L 269 U/L 258 U/L (45-117) (45-117) (45-117) Albumin 2.5 GM/DL 2.5 GM/DL 2.7 GM/DL (3.4-5.0) (3.4-5.0) (3.4-5.0) Band Neutrophils % 10 % (0-6) Metamyelocytes 2 % (0-1) Promyelocytes 1 % (0-0) Nucleated Red Blood Cells 1 /100 WBC (0-0) Ferguson Cells 1+ (NORMAL) Acanthocytes 1+ (NORMAL) Magnesium Level 2.8 MG/DL (1.5-2.5) Potassium Level 3.3 MEQ/L (3.5-5.1) Imaging Last Impressions Abdomen Ultrasound 04/24/17 0000 Signed Impressions: Service Date/Time: Monday, April 24, 2017 09:02 - CONCLUSION: There is no significant ascites evident. Jesus Yo MD FACR Chest X-Ray 04/20/17 0000 Signed Impressions: Service Date/Time: Thursday, April 20, 2017 16:52 - CONCLUSION: Low lung volumes. No infiltrates or effusions. Estevan Vyas Jr., MD Lower Extremity Ultrasound 04/19/17 1703 Signed Impressions: Service Date/Time: Wednesday, April 19, 2017 18:50 - CONCLUSION: No DVT right leg. Sea Solano MD Abdomen/Pelvis CT 04/19/17 1017 Signed Impressions: Service Date/Time: Wednesday, April 19, 2017 12:54 - CONCLUSION: 1. Malignant appearing cecal mass with metastatic disease to the liver and lungs. 2. The mass has eroded through the bowel wall with involvement of the surrounding mesentery and possibly small metastatic lymph nodes locally at the site with slight ascites and early peritoneal carcinomatosis is not excluded K. Ariel Nunn MD PE at Discharge GENERAL: This is a mal-nourished, well-developed patient, in no apparent distress. SKIN: No rashes, ecchymoses or lesions. Cool and dry. (+) Jaundice HEAD: Atraumatic. Normocephalic. No temporal or scalp tenderness. CARDIOVASCULAR: Regular rate and rhythm without murmurs, gallops, or rubs. RESPIRATORY: Clear to auscultation. Breath sounds equal bilaterally. No wheezes , rales, or rhonchi. GASTROINTESTINAL: Abdomen soft, effusion tender to palpation, tended. No hepato- splenomegaly, or palpable masses. No guarding. (+) ascites MUSCULOSKELETAL: Extremities without clubbing, cyanosis, edema in the right lower extremity. No joint tenderness, effusion, or edema noted. No calf tenderness. Negative Homans sign bilaterally. NEUROLOGICAL: Awake and alert. Cranial nerves II through XII intact. Motor and sensory grossly within normal limits. Five out of 5 muscle strength in all muscle groups. Normal speech. Hospital Course 47-year-old male, presented to the hospital for further evaluation of worsening abdominal pain and back pain. He was diagnosed to have colon cancer with extensive liver metastases back in the fall of 2014. Patient presented here at [facility] for worsening pain, and his imaging study showed progression of his tumor in the cecum as well as liver metastases. His LFTs were all markedly elevated with evidence of liver failure. His creatinine was also elevated. There was some suggestion of SIRS, and the patient was started on Rocephin. ID recommends no antibiotics and abx were stopped. Poor prognosis, hem/onc recommends hospice. Patient/family however wants to try chemo on Thursday as OP at Dr Horn office his oncology dotor. Patient is discharged in deteriorating condition to follow up as OP with PCP and consultants. Metastatic colon cancer to liver Patient was admitted to the general medical floor. Started on IV morphine for pain control. Dr Horn has been consulted and he recommended hospice care given that metastatic disease is pretty advanced given her failure. However upon insistence from family and patient, chemotherapy will be tried again as an outpatient. Transaminitis Transaminitis with elevated alkaline phosphatase and coagulopathy likely secondary to liver failure due to metastatic liver disease. transaminases are slowly trending down. ALT now within normal range. ALk phos trending down. Continue to monitor liver function tests. ammonia level is normal Elevated alkaline phosphatase level As above NICOLÁS (acute kidney injury) Likely due to ATN Patient started an IV albumin and IV fluids Continue to monitor BUN/creatinine and creatinine, strict I's and O's, avoid nephrotoxins. Creatinine is more stable and acute kidney injury is worsening. Nephrology consulted, appreciate recommendations. Suspected ATN. Hyponatremia Hyponatremia seems to be slightly better. We'll continue to monitor BMP. We' ll check urine and serum osmolality. Monitor sodium Diabetes mellitus type 2 hemoglobin a1c 5.1. Diabetes is controlled. place on SSI with insulin Novolog and monitor accuchecks. Anemia Normal MCV anemia. Studies consistent with anemia of chronic disease likely secondary to malignancy. Continue to monitor hemoglobin which has trended down likely after IV fluid administration. 04/22 transfused 1 unit of PRBC as per oncology recommendations. H/H so far stable, monitor and transfuse as need Severe protein-calorie malnutrition Dietitian consulted and recommendations appreciated. Continue Megace for appetite stimulant. Will increase diet to 2200 ADA diet and start a multivitamin daily. Coagulopathy Likely secondary to liver failure secondary to liver metastasis. Continue to monitor PT, PTT, continue vitamin K. Edema of right lower extremity DVT ruled out with a LLE doppler us. Elevated lactic acid level Likely elevated secondary to dehydration and cancer. Continue IV fluids. Continue to monitor lactic acid. Abdominal pain Likely secondary to metastatic colon cancer. However cannot rule out SBP given that there is increased lactic acid and pain. 04/20 Continue IV Rocephin, amount of ascites seen on CT abdomen seems to be not enough for abdominal paracentesis. Jaundice Plan: due to liver failure due to metastasis. Continue to monitor liver function tests. SIRS (systemic inflammatory response syndrome) Patient meets SIRS criteria - tachycardia more than 16% bands. Initially started on IV rocephin since patient came with abdominal pain. 04/22 Id consulted - no signs of sepsis - recommended discontinuation of antibiotics. 04/23 patient has worsening leukocytosis. Likely reactive. Continue to monitor CBC. Assessment and Plan DVT prophylaxis: SCDs, Lovenox subcutaneously. Discharge Planning Plan to [place] home. Plan to follow up on Thursday at Dr Horn hem/onc office for trial chemo. Discharge din stable condition to follow up as OP with PCP and consultants. discussed with the patient, nurse, family at bedside Pt Condition on Discharge: Stable Discharge Disposition: Discharge Home Discharge Time: > 30 minutes Discharge Instructions DIET: Follow Instructions for: Heart Healthy Diet Activities you can perform: Regular-No Restrictions Follow up Referrals: Nephrology - 3-5 Days Oncology with Madeleine Horn MD PCP Follow-up - 3-5 Days New Medications: Megestrol Liq (Megestrol Liq) 40 Mg/Ml Susp 400 MG PO DAILY appetite enhancers #120 ML Sennosides-Docusate Sodium (Senna Plus 8.6-50 mg) 1 Tab Tab 1 TAB PO BID Constipation #60 TAB Changed Medications: Insulin Detemir Inj (Levemir Flextouch Pen Inj) 300 unit/3 ML Pen 1 UNITS SQ DAILY Blood Sugar Management #30 Ref 0 PEN (Medication details modified) Continued Medications: Glipizide (Glipizide) 10 Mg Tab 10 MG PO BIDAC Take 30 minutes before a meal Blood Sugar Management #60 Ref 0 TAB (This prescription has been renewed) Hydromorphone (Dilaudid) 2 Mg Tab 2 MG PO Q6H PRN Pain Management #30 Ref 0 TAB (This prescription has been renewed) Lovastatin (Lovastatin) 40 Mg Tab 40 MG PO DAILY Cholesterol Management #30 Ref 0 TAB (This prescription has been renewed) Cindy Moore MD Apr 25, 2017 09:11
[2017-04-25 09:15] LABS: BANDS 4 % (0-6); EOSINOPHILS 1 % (0-4); METAMYELOCYTES 2 % (0-1); MYELOCYTES 1 % (0-0); NEUTROPHIL # MANUAL DIFF 9.3 TH/MM3 (1.8-7.7); POLYS (SEG NEUTROPHILS) 68 % (16-70); WBC DIFF SAMPLE 100
[2017-04-25 09:16] LABS: PLATELET ESTIMATE SMEAR NORMAL (NORMAL); PLATELET MORPHOLOGY NORMAL (NORMAL); SCAN/DIFF FINAL DIFF MANUAL
[2017-04-25] MEDS ORDERED: SENN1TAB PO (09:50)
[2017-04-25] MEDS ORDERED: DILA2TAB2 PO (09:50)
[2017-04-25] MEDS ORDERED: GLIP10TA6 PO (09:50)
[2017-04-25] MEDS ORDERED: INSU1INJ5 SQ (09:50)
[2017-04-25] MEDS ORDERED: LOVA40TA PO (09:50)
--- NOTE | 2017-04-25 11:37 | PD.ONC.PN ---
Subjective Subjective Remarks Afebrile overnight Pt c/o abdominal pain He also c/o constipation with narcotic medications. Objective Data Date Time Temp Pulse Resp B/P Pulse Ox O2 Delivery O2 Flow Rate FiO2 04/25/17 07:50 97.5 100 20 115/64 97 04/25/17 04:00 96.4 101 23 132/78 96 04/25/17 00:00 96.7 99 22 129/71 96 04/24/17 22:00 16 04/24/17 20:00 96.7 102 21 133/74 95 04/24/17 16:00 97.5 100 16 129/71 96 04/24/17 12:00 96.9 70 16 129/77 95 04/25/17 04/25/17 04/25/17 06:59 14:59 22:59 Intake Total 480 ml Balance 480 ml Result Diagram: 04/25/17 0443 04/25/17 0443 Laboratory Results Laboratory Tests Test 04/25/17 04:43 White Blood Count 12.4 TH/MM3 Red Blood Count 3.01 MIL/MM3 Hemoglobin 9.7 GM/DL Hematocrit 28.4 % Mean Corpuscular Volume 94.5 FL Mean Corpuscular Hemoglobin 32.2 PG Mean Corpuscular Hemoglobin 34.0 % Concent Red Cell Distribution Width 20.8 % Platelet Count 168 TH/MM3 Mean Platelet Volume 7.7 FL Neutrophils (%) (Auto) 80.7 % Lymphocytes (%) (Auto) 5.8 % Monocytes (%) (Auto) 10.5 % Eosinophils (%) (Auto) 1.7 % Basophils (%) (Auto) 1.3 % Neutrophils # (Auto) 10.0 TH/MM3 Lymphocytes # (Auto) 0.7 TH/MM3 Monocytes # (Auto) 1.3 TH/MM3 Eosinophils # (Auto) 0.2 TH/MM3 Basophils # (Auto) 0.2 TH/MM3 CBC Comment AUTO DIFF Differential Total Cells 100 Counted Neutrophils % (Manual) 68 % Band Neutrophils % 4 % Lymphocytes % 10 % Monocytes % 14 % Eosinophils % 1 % Neutrophils # (Manual) 9.3 TH/MM3 Metamyelocytes 2 % Myelocytes 1 % Differential Comment FINAL DIFF MANUAL Platelet Estimate NORMAL Platelet Morphology Comment NORMAL Sodium Level 135 MEQ/L Potassium Level 3.3 MEQ/L Chloride Level 99 MEQ/L Carbon Dioxide Level 19.0 MEQ/L Anion Gap 17 MEQ/L Blood Urea Nitrogen 64 MG/DL Creatinine 2.79 MG/DL Estimat Glomerular Filtration 25 ML/MIN Rate Random Glucose 144 MG/DL Calcium Level 8.9 MG/DL Total Bilirubin 21.8 MG/DL Aspartate Amino Transf 122 U/L (AST/SGOT) Alanine Aminotransferase 28 U/L (ALT/SGPT) Alkaline Phosphatase 258 U/L Total Protein 7.2 GM/DL Albumin 2.7 GM/DL Objective Remarks GENERAL: Middle aged male resting in bed in no apparent distress. SKIN: Warm and dry. +jaundice HEAD: Normocephalic. EYES: No injection or drainage. +Icterus NECK: Supple, trachea midline. CARDIOVASCULAR: +S1/S2. RESPIRATORY: Breath sounds equal bilaterally. No accessory muscle use. GASTROINTESTINAL: Abdomen distended with ascites EXTREMITIES: No cyanosis, +BLE with 3+ edema. + Anasarca NEUROLOGICAL: Awake and alert, normal speech. Moving all extremities. Assessment/Plan Problem List: (1) Metastatic colon cancer to liver Status: Acute Plan: -- History of colon cancer with liver metastasis diagnosed two years ago in 2014. --initially was treated with Xelox, then Avastin and FOLFOX chemotherapy with an excellent response. --elected to stop further chemotherapy in November due to financial reasons. --now has extensive liver metastasis and the cancer has now progressed into both lungs. -- have strongly recommended Hospice for best supportive care. I do not think the patient would be able to tolerate further chemotherapy due to the extensive metastasis as well as liver failure. --recommended Hospice for best supportive care. However, the patient and his family adamantly declined. (2) Jaundice Status: Acute Plan: --has severe jaundice due to extensive liver metastasis. --patient does not have any dilated bile duct so the patient does not have any obstruction of the bile ducts. This is all hepatocellular disease from extensive colon metastasis. Assessment 47y/o male with metastatic colon cancer. h/o Morbid obesity. Depression. Diabetes mellitus. Colon cancer with liver metastasis. Plan 1. The patient will be discharged and follow up in the clinic on Thursday for chemotherapy. This will be at a reduced dose. The patient is a candidate for hospice, however he adamantly declines this option at this time and wishes to pursue aggressive therapy. 2. Okay for discharge from oncology standpoint Neelam Burns Apr 25, 2017 11:37
== END 2017-04-25 11:04 | disposition home or self-care (01) | DRG 947 ==
LOC: NEPE 09:48 → NEDA 14:29 → INTOOBSV 14:29 → HOCB 18:15 → OBSVTOIN 04-21 16:18
PROVIDERS: ADMIT Hospitalist; ATTEND Hospitalist
PROC: 30233N1 Transfusion of Nonautologous Red Blood Cells into Peripheral Vein, Percutaneous Approach (ICD-10-PCS; principal; 2017-04-22)
DX: G89.3 Neoplasm related pain (acute) (chronic) (principal); K72.00 Acute and subacute hepatic failure without coma; N17.0 Acute kidney failure with tubular necrosis; E43 Unspecified severe protein-calorie malnutrition; R18.0 Malignant ascites; C78.00 Secondary malignant neoplasm of unspecified lung; D68.4 Acquired coagulation factor deficiency; R65.10 Systemic inflammatory response syndrome (SIRS) of non-infectious origin without acute organ dysfunction; C78.6 Secondary malignant neoplasm of retroperitoneum and peritoneum; C78.7 Secondary malignant neoplasm of liver and intrahepatic bile duct; C18.9 Malignant neoplasm of colon, unspecified; E87.1 Hypo-osmolality and hyponatremia; D63.0 Anemia in neoplastic disease; E11.9 Type 2 diabetes mellitus without complications; R74.8 Abnormal levels of other serum enzymes; E86.0 Dehydration; R79.89 Other specified abnormal findings of blood chemistry; G62.9 Polyneuropathy, unspecified; F32.9 Major depressive disorder, single episode, unspecified; Z59.9 Problem related to housing and economic circumstances, unspecified; E66.01 Morbid (severe) obesity due to excess calories; K59.00 Constipation, unspecified; R00.0 Tachycardia, unspecified; Z51.5 Encounter for palliative care; Z66 Do not resuscitate
CPT/HCPCS: 36430; 71020; 74177; 76705; 80053; 81001; 82140; 82378; 82728; 82948; 83036; 83540; 83550; 83605; 83690; 83735; 83935; 84100; 84300; 85007; 85025; 85027; 85610; 85730; 86850; 86900; 86901; 86920; 87040; 93971; 96361; 96374; 96375; G0378; J0696; J1170; J1642; J1650; J1815; J1940; J2270; J2405; J3430; J7030; J7050; P9016; P9047; Q9967